=== PATIENT | female | born 1995 | race American Indian/Alaskan Native ===

== ENCOUNTER 2018-02-28 15:56 | Inpatient (IN) | payer MEDICAID ==
[2018-02-28] MEDS ORDERED: Albuterol-Ipratrop 3 mg / 0.5 (3 ml) UD INH STA ×2 (16:56)
[2018-02-28] MEDS ORDERED: MethylPREDNISolone 40 mg Vial IVP STA (16:57)
--- NOTE | 2018-02-28 17:09 | C.PDOC ---
History Of Present Illness 23 year old female with a history of hypertension and obesity presents to the emergency department with complaints of shortness of breath for the last 3 days. Patient also reports a cough which has persisted for the last two weeks. Patient denies fever or other complaints at this time. Time Seen by Provider: 02/28/18 16:12 Chief Complaint (Nursing): Shortness Of Breath History Per: Patient History/Exam Limitations: no limitations Onset/Duration Of Symptoms: Days (3) Current Symptoms Are (Timing): Still Present Associated Symptoms: Other (cough, shortness of breath). denies: Fever Past Medical History Reviewed: Historical Data, Nursing Documentation, Vital Signs Vital Signs: Last Vital Signs Temp 98.2 F 03/01/18 04:00 Pulse 92 H 03/01/18 11:40 Resp 29 H 03/01/18 07:07 BP 124/73 03/01/18 09:58 Pulse Ox 100 03/01/18 07:07 - Medical History PMH: HTN Surgical History: No Surg Hx Family History: States: No Known Family Hx - Social History Hx Alcohol Use: No Hx Substance Use: No - Immunization History Hx Tetanus Toxoid Vaccination: No Hx Influenza Vaccination: No Hx Pneumococcal Vaccination: No Review Of Systems Except As Marked, All Systems Reviewed And Found Negative. Constitutional: Negative for: Fever Respiratory: Positive for: Cough, Shortness of Breath Physical Exam - Physical Exam Appears: Non-toxic, No Acute Distress, Other (morbidly obese) Skin: Warm, Dry Head: Atraumatic, Normacephalic Eye(s): bilateral: Normal Inspection Nose: Normal Oral Mucosa: Moist Throat: Normal, No Erythema, No Exudate Neck: Normal Chest: Symmetrical Cardiovascular: Rhythm Regular, No Murmur Respiratory: Decreased Breath Sounds (symmetrically), Wheezing (scattered) Gastrointestinal/Abdominal: Normal Exam, Soft, No Tenderness, No Guarding, No Rebound Extremity: Normal ROM Neurological/Psych: Oriented x3, Normal Speech, Normal Cognition ED Course And Treatment - Laboratory Results Result Diagrams: 03/01/18 06:15 03/01/18 06:12 ECG: Interpreted By Me, Viewed By Me ECG Rhythm: Sinus Tachycardia (101bpm) ECG Interpretation: Abnormal O2 Sat by Pulse Oximetry: 100 (RA) Pulse Ox Interpretation: Normal Medical Decision Making Medical Decision Making: ro pna, pe Plan: VBG Shock Panel EKG BNP CMP Troponin CBC D-Dimer PTT Prothrombin Time CXR One View Duoneb 3ml INH Solu-Medrol 125mg IVP Urinalysis HCG Qualitative Urine noted dimer. pt cannot be sent to ct or vq due to size limitations. case discussed with dr grey about transfer vs empiric tx. agrees to empiric tx heparin. pt repeat abg co2 44. Disposition - Disposition Disposition: HOSPITALIZED Disposition Time: 10:15 Condition: FAIR - Clinical Impression Clinical Impression: Respiratory distress, Pneumonia, Elevated d-dimer - Scribe Statement The provider has reviewed the documentation as recorded by the Scribe (Jamin Cathy) Provider Attestation: All medical record entries made by the Scribe were at my direction and personally dictated by me. I have reviewed the chart and agree that the record accurately reflects my personal performance of the history, physical exam, medical decision making, and the department course for this patient. I have also personally directed, reviewed, and agree with the discharge instructions and disposition. Decision To Admit - Pt Status Changed To: Hospital Disposition Of: Inpatient - Admit Certification Admit to Inpatient:: After my assessment, the patient will require hospitalization for at least two midnights. This is because of the severity of symptoms shown, intensity of services needed, and/or the medical risk in this patient being treated as an outpatient. - InPatient: Physician Admission Certification: I certify that this patient requires 2 or more midnights of care for the following reason:: needs heparin - . Bed Request Type: Telemetry Admitting Physician: Mei Grey Patient Diagnosis: Respiratory distress, Pneumonia, Elevated d-dimer
[2018-02-28 17:26] LABS: BASO % 0.2 % (0.0-2.0); EOS # 0.1 K/uL (0.0-0.7); EOS % 1.2 % (0.0-4.0); LYMPH # 3.3 K/uL (1.0-4.3); LYMPH % 28.9 % (20.0-40.0); MEAN CELL VOLUME 64.9 fL (81.0-99.0); MEAN CORPUSCULAR HEMOGLOBIN 19.7 pg (27.0-31.0); MEAN CORPUSCULAR HGB CONC 30.4 g/dL (33.0-37.0); MEAN PLATELET VOLUME 8.2 fL (7.2-11.7); MONO # 0.7 K/uL (0.0-0.8); MONO % 6.2 % (0.0-10.0); NEUT # 7.2 K/uL (1.8-7.0); NEUT % 63.5 % (50.0-75.0); RBC 5.08 Mil/uL (3.80-5.20); RED CELL DISTRIBUTION WIDTH 20.7 % (11.5-14.5); WHITE BLOOD COUNT 11.4 K/uL (4.8-10.8)
[2018-02-28] MEDS ORDERED: Albuterol-Ipratrop 3 mg / 0.5 (3 ml) UD ONE (17:28)
[2018-02-28 17:32] LABS: VENOUS BLOOD GAS BASE EXCESS 3.8 mmol/L (0.0-2.0); VENOUS BLOOD GAS PCO2 84 mmHg (40-60); VENOUS BLOOD GAS PO2 49 mm/Hg (30-55); VENOUS BLOOD PH 7.22 (7.32-7.43)
[2018-02-28 17:45] LABS: INR 1.2; PROTHROMBIN TIME 13.5 SECONDS (9.7-12.2)
[2018-02-28 17:47] LABS: ALB/GLOB RATIO 0.6 (1.0-2.1); ALBUMIN 3.4 g/dL (3.5-5.0); ALT/SGPT 35 U/L (9-52); AST/SGOT 67 U/L (14-36); BLOOD UREA NITROGEN 15 mg/dL (7-17); CALCIUM 8.7 mg/dl (8.6-10.4); GFR AFRICAN-AMERICAN > 60; GFR NON-AFRICAN AMERICAN > 60
[2018-02-28] MEDS ORDERED: Azithromycin 500 MG in Sodium Chloride 0.9% 250 ML IVPB STA (17:49)
[2018-02-28 18:01] LABS: B-TYPE NATRIURETIC PEPTIDE 574 pg/mL (0-450)
[2018-02-28] MEDS ORDERED: cefTRIAXone IV 1 gm in Dextros 50 ML IVPB ONE (18:01)
--- NOTE | 2018-02-28 18:02 | RAD ---
PROCEDURE: CHEST RADIOGRAPH, 1 VIEW HISTORY: chest pain COMPARISON: None available. FINDINGS: LUNGS: Poor inspiration with low lung volumes, crowded bronchovascular markings and suspected bibasilar atelectasis. Note that possibility of bilateral lower lobe infiltrates and effusions cannot be excluded in this patient with large body habitus. . PLEURA: As above. No evidence of pneumothorax. CARDIOVASCULAR: Cardiomegaly. OSSEOUS STRUCTURES: No significant abnormalities. VISUALIZED UPPER ABDOMEN: Normal. OTHER FINDINGS: None. IMPRESSION: Poor inspiration with low lung volumes, crowded bronchovascular markings and suspected bibasilar atelectasis. Note that possibility of bilateral lower lobe infiltrates and effusions cannot be excluded in this patient with large body habitus. . Cardiomegaly.
[2018-02-28] MEDS ORDERED: Heparin25000 units/250ml 1/2NS 25,000 UNITS/250 ML BAG IV ONE ×2 (19:16→19:45)
--- NOTE | 2018-02-28 20:11 | CP.PCM.HP ---
History of Present Illness - History of Present Illness History of Present Illness: Chief complaint: sob HPI: 22-year-old female extremity obese, and hypertension was being seen by PMD Dr. Jaz Concepcion. Seen in my office recently for routine visit came to ed with progressively increasing sob Past medical history: Hypertension She denies any diabetes, bronchial asthma. Surgical history: None Family history: Father is healthy. Mother had a history of neck cancer, disease 2. Patient has 4 sisters and one brother. Social history: Drinks socially alcohol. She denies any smoking. Occasional drinks coffee. Currently trying to do some exercise. Current medications: Metformin 500 mg daily Bisoprolol hydrochlorothiazide 5/6.25 daily Gabapentin 300 mg daily Vitamin D Naprosyn 375 mg twice a day as needed. Review of system: Patient is currently on and off having occasional headache, morning headache noted. She has no sinus symptoms. Patient has a history of on and off chest discomfort, and shortness of breath. Currently do not have any pain. She has no GI symptoms. Regular bowel movements noted. No urinary symptoms. Bilateral knee pain, back pain, and hip pain noted. No skin changes. Patient have a difficult time in sleeping, multiple awakening noted, and she is also feeling dozing off at times. But she was not evaluated for sleep apnea in the past On examination: Vital signs noted. Blood pressure is 140/84. Saturations 97% in room air. Chest good air entry bilaterally. Regular heart sound noted. Abdominal tenderness negative. But the patient is obese and extremities edema noted Labs ordered. high d dimer Assessment and recommendation: 22-year-old female with a history of morbidly obesity, hypertension. Currently blood pressure is controlled. Patient is also having shortness of breath, and associated with the possible obstructive sleep apnea cannot be ruled out. possible FANY with hypoventilation PE/DVT cannt be ruled out unable to CT chest and VQ scan because of the size limitation will treat empirically will get echo and doppler spoke pt mother bipap duoneb antibiotic heparin protonix respiratory watch no SCD until doppler Present on Admission - Present on Admission Any Indicators Present on Admission: No History of DVT/PE: No History of Uncontrolled Diabetes: No Urinary Catheter: No Decubitus Ulcer Present: No Past Patient History - Infectious Disease Hx of Infectious Diseases: None - Past Social History Smoking Status: Never Smoked - CARDIAC Hx Hypertension: Yes - PULMONARY Hx Respiratory Disorders: No - NEUROLOGICAL Hx Neurological Disorder: No - ENDOCRINE/METABOLIC Hx Endocrine Disorders: Yes Other/Comment: pre diabetic - HEMATOLOGICAL/ONCOLOGICAL Hx Blood Disorders: No - INTEGUMENTARY Hx Dermatological Problems: No - MUSCULOSKELETAL/RHEUMATOLOGICAL Hx Musculoskeletal Disorders: Yes Other/Comment: knee pain - GASTROINTESTINAL Hx Gastrointestinal Disorders: No - GENITOURINARY/GYNECOLOGICAL Hx Genitourinary Disorders: No - PSYCHIATRIC Hx Substance Use: No - SURGICAL HISTORY Hx Surgeries: No - ANESTHESIA Hx Anesthesia: No Hx Anesthesia Reactions: No Meds Allergies/Adverse Reactions: Allergies Allergy/AdvReac Type Severity Reaction Status Date / Time No Known Allergies Allergy Verified 02/28/18 16:49 Results - Vital Signs Recent Vital Signs: Last Vital Signs Temp 98 F 02/28/18 20:11 Pulse 93 H 02/28/18 20:11 Resp 18 02/28/18 20:11 BP 142/74 02/28/18 20:11 Pulse Ox 98 02/28/18 20:11 - Labs Result Diagrams: 03/07/18 06:06 03/07/18 06:07 Labs: Laboratory Results - last 24 hr 02/28/18 02/28/18 02/28/18 17:23 17:23 17:23 WBC 11.4 H RBC 5.08 Hgb 10.0 L Hct 33.0 L MCV 64.9 L MCH 19.7 L MCHC 30.4 L RDW 20.7 H Plt Count 332 MPV 8.2 Neut % (Auto) 63.5 Lymph % (Auto) 28.9 [place] % (Auto) 6.2 Eos % (Auto) 1.2 Baso % (Auto) 0.2 Neut # (Auto) 7.2 H Lymph # (Auto) 3.3 [place] # (Auto) 0.7 Eos # (Auto) 0.1 Baso # (Auto) 0.0 Differential Comment PT 13.5 H INR 1.2 APTT 23 D-Dimer, Quantitative 1884 H pO2 VBG pH VBG pCO2 VBG HCO3 VBG Total CO2 VBG O2 Sat (Calc) VBG Base Excess VBG Potassium Glucose Lactate FiO2 Crit Value Called To Crit Value Called By Crit Value Read Back Blood Gas Notified Time Sodium 137 Potassium 4.3 Chloride 98 Carbon Dioxide 36 H Anion Gap 8 L BUN 15 Creatinine 0.7 Est GFR ( Amer) > 60 Est GFR (Non-Af Amer) > 60 Random Glucose 104 Calcium 8.7 Total Bilirubin 0.5 AST 67 H ALT 35 Alkaline Phosphatase 79 Troponin I 0.0150 NT-Pro-B Natriuret Pep 574 H Total Protein 8.9 H Albumin 3.4 L Globulin 5.4 H Albumin/Globulin Ratio 0.6 L Beta HCG, Quant Venous Blood Potassium 02/28/18 02/28/18 17:25 18:36 WBC RBC Hgb Hct MCV MCH MCHC RDW Plt Count MPV Neut % (Auto) Lymph % (Auto) [place] % (Auto) Eos % (Auto) Baso % (Auto) Neut # (Auto) Lymph # (Auto) [place] # (Auto) Eos # (Auto) Baso # (Auto) Differential Comment PT INR APTT D-Dimer, Quantitative pO2 49 VBG pH 7.22 L VBG pCO2 84 H* VBG HCO3 27.3 VBG Total CO2 37.0 H VBG O2 Sat (Calc) 81.7 H VBG Base Excess 3.8 H VBG Potassium 3.9 Glucose 92 Lactate 0.7 FiO2 21.0 Crit Value Called To Dr fields Crit Value Called By [facility] Crit Value Read Back Y Blood Gas Notified Time 1732 Sodium 137.0 Potassium Chloride 102.0 Carbon Dioxide Anion Gap BUN Creatinine Est GFR ( Amer) Est GFR (Non-Af Amer) Random Glucose Calcium Total Bilirubin AST ALT Alkaline Phosphatase Troponin I NT-Pro-B Natriuret Pep Total Protein Albumin Globulin Albumin/Globulin Ratio Beta HCG, Quant < 2.39 Venous Blood Potassium 3.9
--- NOTE | 2018-02-28 22:49 | CP.PCM.CON ---
History of Present Illness - History of Present Illness History of Present Illness: 23 F with hx of Obesity admitted for dyspnea Elevated D dimer Started on anticoagulation for possible PE Check ECHO Past Patient History - Infectious Disease Hx of Infectious Diseases: None - Past Social History Smoking Status: Never Smoked - CARDIAC Hx Hypertension: Yes - PULMONARY Hx Respiratory Disorders: No - NEUROLOGICAL Hx Neurological Disorder: No - ENDOCRINE/METABOLIC Hx Endocrine Disorders: Yes Other/Comment: pre diabetic - HEMATOLOGICAL/ONCOLOGICAL Hx Blood Disorders: No - INTEGUMENTARY Hx Dermatological Problems: No - MUSCULOSKELETAL/RHEUMATOLOGICAL Hx Musculoskeletal Disorders: Yes Other/Comment: knee pain - GASTROINTESTINAL Hx Gastrointestinal Disorders: No - GENITOURINARY/GYNECOLOGICAL Hx Genitourinary Disorders: No - PSYCHIATRIC Hx Substance Use: No - SURGICAL HISTORY Hx Surgeries: No - ANESTHESIA Hx Anesthesia: No Hx Anesthesia Reactions: No Meds Allergies/Adverse Reactions: Allergies Allergy/AdvReac Type Severity Reaction Status Date / Time No Known Allergies Allergy Verified 02/28/18 16:49 - Medications Medications: Current Medications Albuterol/Ipratropium (Duoneb 3 Mg/0.5 Mg (3 Ml) Ud) 3 ml INH RQ6 ZURDO Budesonide (Pulmicort Respules) 0.5 mg INH RQ12 ZURDO Furosemide (Lasix) 20 mg IVP DAILY ZURDO Heparin Sodium/Sodium Chloride (Heparin 65236 Units/250ml 1/2 Normal Saline) 25 ,000 units in 250 mls @ 38.782 mls/hr IV .Q6H27M ONE; 18 UNITS/KG/HR PRN Reason: Protocol Stop: 03/01/18 02:11 Last Admin: 02/28/18 20:07 Dose: 18 units/kg/hr, 38.782 mls/hr Azithromycin 500 mg/ Sodium (Chloride) 250 mls @ 250 mls/hr IVPB 1800 ZURDO PRN Reason: Protocol Ceftriaxone Sodium 1 gm/ (Sodium Chloride) 100 mls @ 100 mls/hr IVPB 1700 ZURDO PRN Reason: Protocol Pantoprazole Sodium (Protonix Inj) 40 mg IVP DAILY ZURDO Tiotropium [place] (Spiriva) 18 mcg INH RQ24 ZURDO Results - Vital Signs Recent Vital Signs: Last Vital Signs Temp 98 F 02/28/18 21:12 Pulse 86 02/28/18 22:05 Resp 18 02/28/18 21:12 BP 140/70 07/07/18 21:34 Pulse Ox 100 02/28/18 22:15 - Labs Result Diagrams: 02/28/18 17:23 02/28/18 17:23 Labs: Laboratory Results - last 24 hr 02/28/18 02/28/18 02/28/18 17:23 17:23 17:23 WBC 11.4 H RBC 5.08 Hgb 10.0 L Hct 33.0 L MCV 64.9 L MCH 19.7 L MCHC 30.4 L RDW 20.7 H Plt Count 332 MPV 8.2 Neut % (Auto) 63.5 Lymph % (Auto) 28.9 [place] % (Auto) 6.2 Eos % (Auto) 1.2 Baso % (Auto) 0.2 Neut # (Auto) 7.2 H Lymph # (Auto) 3.3 [place] # (Auto) 0.7 Eos # (Auto) 0.1 Baso # (Auto) 0.0 Differential Comment PT 13.5 H INR 1.2 APTT 23 D-Dimer, Quantitative 1884 H pO2 VBG pH VBG pCO2 VBG HCO3 VBG Total CO2 VBG O2 Sat (Calc) VBG Base Excess VBG Potassium Glucose Lactate FiO2 Crit Value Called To Crit Value Called By Crit Value Read Back Blood Gas Notified Time Sodium 137 Potassium 4.3 Chloride 98 Carbon Dioxide 36 H Anion Gap 8 L BUN 15 Creatinine 0.7 Est GFR ( Amer) > 60 Est GFR (Non-Af Amer) > 60 Random Glucose 104 Calcium 8.7 Total Bilirubin 0.5 AST 67 H ALT 35 Alkaline Phosphatase 79 Troponin I 0.0150 NT-Pro-B Natriuret Pep 574 H Total Protein 8.9 H Albumin 3.4 L Globulin 5.4 H Albumin/Globulin Ratio 0.6 L Beta HCG, Quant Venous Blood Potassium 02/28/18 02/28/18 17:25 18:36 WBC RBC Hgb Hct MCV MCH MCHC RDW Plt Count MPV Neut % (Auto) Lymph % (Auto) [place] % (Auto) Eos % (Auto) Baso % (Auto) Neut # (Auto) Lymph # (Auto) [place] # (Auto) Eos # (Auto) Baso # (Auto) Differential Comment PT INR APTT D-Dimer, Quantitative pO2 49 VBG pH 7.22 L VBG pCO2 84 H* VBG HCO3 27.3 VBG Total CO2 37.0 H VBG O2 Sat (Calc) 81.7 H VBG Base Excess 3.8 H VBG Potassium 3.9 Glucose 92 Lactate 0.7 FiO2 21.0 Crit Value Called To Dr fields Crit Value Called By [facility] Crit Value Read Back Y Blood Gas Notified Time 1732 Sodium 137.0 Potassium Chloride 102.0 Carbon Dioxide Anion Gap BUN Creatinine Est GFR ( Amer) Est GFR (Non-Af Amer) Random Glucose Calcium Total Bilirubin AST ALT Alkaline Phosphatase Troponin I NT-Pro-B Natriuret Pep Total Protein Albumin Globulin Albumin/Globulin Ratio Beta HCG, Quant < 2.39 Venous Blood Potassium 3.9
[2018-03-01 00:01] LABS: HCG,QUALITATIVE URINE NEGATIVE (NEGATIVE)
[2018-03-01 00:05] LABS: SQUAMOUS EPITHIAL < 1 /hpf (0-5); URINE BACTERIA FEW (<OCC); URINE BILIRUBIN NEGATIVE (NEGATIVE); URINE BLOOD 2+ (NEGATIVE); URINE CLARITY Hazy (Clear); URINE COLOR Yellow (YELLOW); URINE GLUCOSE (UA) NORMAL (Normal); URINE HYALINE CAST 0-2 /lpf (0-2); URINE LEUKOCYTE ESTERASE NEG Leu/uL (Negative); URINE PROTEIN 2+ mg/dL (NEGATIVE); URINE UROBILINOGEN NORMAL mg/dL (0.2-1.0)
[2018-03-01] MEDS: Albuterol-Ipratrop 3 mg / 0.5 (3 ml) UD INH SCH ×4 (02:15→19:06)
[2018-03-01] MEDS: Heparin25000 units/250ml 1/2NS 25,000 UNITS/250 ML BAG IV PRN ×4 (03:04→22:30)
[2018-03-01 05:56] LABS: ABG ALLEN TEST POS; ARTERIAL BLOOD GAS HCO3 29.2 mmol/L (21-28); ARTERIAL BLOOD GAS HEMOGLOBIN 10.4 g/dL (11.7-17.4); ARTERIAL BLOOD GAS O2 SAT 96.6 % (95-98); ARTERIAL BLOOD GAS PCO2 64 mm/Hg (35-45); ARTERIAL BLOOD GAS PH 7.32 (7.35-7.45); ARTERIAL BLOOD GAS PO2 74 mm/Hg (80-100)
[2018-03-01 06:24] LABS: BASO % 0.4 % (0.0-2.0); HEMOGLOBIN 9.8 g/dL (11.0-16.0); LYMPH # 2.1 K/uL (1.0-4.3); LYMPH % 20.7 % (20.0-40.0); MEAN CELL VOLUME 65.2 fL (81.0-99.0); MEAN CORPUSCULAR HEMOGLOBIN 20.4 pg (27.0-31.0); MEAN CORPUSCULAR HGB CONC 31.3 g/dL (33.0-37.0); MEAN PLATELET VOLUME 8.4 fL (7.2-11.7); MONO # 0.5 K/uL (0.0-0.8); MONO % 4.6 % (0.0-10.0); NEUT # 7.5 K/uL (1.8-7.0); NEUT % 74.3 % (50.0-75.0); NRBC % 0.1 % (0.0-2.0); RBC 4.79 Mil/uL (3.80-5.20); RED CELL DISTRIBUTION WIDTH 20.7 % (11.5-14.5); WHITE BLOOD COUNT 10.1 K/uL (4.8-10.8)
[2018-03-01 06:39] LABS: ALB/GLOB RATIO 0.7 (1.0-2.1); ALBUMIN 3.6 g/dL (3.5-5.0); ALT/SGPT 29 U/L (9-52); AST/SGOT 62 U/L (14-36); BLOOD UREA NITROGEN 16 mg/dL (7-17); CALCIUM 8.9 mg/dl (8.6-10.4); GFR AFRICAN-AMERICAN > 60; GFR NON-AFRICAN AMERICAN > 60
[2018-03-01] MEDS: Budesonide 0.5 mg/2 ml Inhal Susp UD INH SCH ×2 (07:57→19:06)
[2018-03-01] MEDS: Tiotropium 18 mcg Cap For Inhalation INH SCH (07:57)
[2018-03-01] MEDS: Azithromycin 500 MG in Sodium Chloride 0.9% 250 ML IVPB SCH ×2 (18:00→18:01)
[2018-03-01] MEDS ORDERED: Amoxicillin-Clav 875-125 mg Tab PO STA (18:32)
--- NOTE | 2018-03-01 19:42 | CP.PCM.PN ---
Subjective - Date & Time of Evaluation Date of Evaluation: 03/01/18 Time of Evaluation: 19:41 - Subjective Subjective: Patient is currently off BiPAP. Still having some exertional dyspnea. Minimal movement causes increasing as will be. Saturation is good. Receiving heparin, but having difficult time in getting the intravenous access. Awaiting for PICC line tomorrow. Leg swelling is less. Patient is having negative balance now. On examination: Vital signs stable. Blood pressure is good at this time. Saturation 97%. Chest bilateral minimal expiratory wheezing noted. Regular heart sound. Abdomen obese extremities edema Labs reviewed Nonspecific. Elevated phosphorus level noted. CBC normal blood gas analysis reveals pH of 7.32, PCO2 64, PO2 74 Assessment and recommendation: 23-year-old female with a history of morbid obesity. Hypertension. Pedal edema Possible pickwickian syndrome, obesity hypoventilation. CO2 retention noted. We will get echocardiogram. Continue the heparin. PICC line tomorrow. Out of bed to chair in the morning. Awaiting for Doppler study results. We will follow the patient. Spoke to the patient's family in details. Objective - Vital Signs/Intake and Output Vital Signs (last 24 hours): Temp Pulse Resp BP Pulse Ox 99.7 F H 103 H 21 116/56 L 100 03/01/18 16:00 03/01/18 18:18 03/01/18 18:18 03/01/18 18:18 03/01/18 18:18 Intake and Output: 03/01/18 03/02/18 18:59 06:59 Intake Total 1614.0 Output Total 150 1380 Balance 1464.0 -1380 - Medications Medications: Current Medications Albuterol/Ipratropium (Duoneb 3 Mg/0.5 Mg (3 Ml) Ud) 3 ml INH RQ6 ZURDO Last Admin: 03/01/18 19:06 Dose: 3 ml Budesonide (Pulmicort Respules) 0.5 mg INH RQ12 ZURDO Last Admin: 03/01/18 19:06 Dose: 0.5 mg Furosemide (Lasix) 20 mg IVP DAILY ZURDO Last Admin: 03/01/18 09:58 Dose: 20 mg Azithromycin 500 mg/ Sodium (Chloride) 250 mls @ 250 mls/hr IVPB 1800 ZURDO PRN Reason: Protocol Last Admin: 03/01/18 18:01 Dose: 250 mls/hr Ceftriaxone Sodium 1 gm/ (Sodium Chloride) 100 mls @ 100 mls/hr IVPB 1700 ZURDO PRN Reason: Protocol Last Admin: 03/01/18 17:00 Dose: 100 mls/hr Heparin Sodium/Sodium Chloride (Heparin 02205 Units/250ml 1/2 Normal Saline) 25 ,000 units in 250 mls @ 47.4 mls/hr IV .Q5H17M PRN; Protocol; 22 UNITS/KG/HR PRN Reason: PROTOCOL Last Admin: 03/01/18 14:30 Dose: 22 units/kg/hr, 47.4 mls/hr Pantoprazole Sodium (Protonix Inj) 40 mg IVP DAILY ZURDO Last Admin: 03/01/18 09:57 Dose: 40 mg Tiotropium [place] (Spiriva) 18 mcg INH RQ24 ZURDO Last Admin: 03/01/18 07:57 Dose: 18 mcg - Labs Labs: 03/01/18 06:15 03/01/18 06:12 PT 13.5 SECONDS (9.7-12.2) H 02/28/18 17:23 INR 1.2 02/28/18 17:23 APTT 33 SECONDS (21-34) 03/01/18 15:52
--- NOTE | 2018-03-01 21:25 | CP.PCM.PN ---
Subjective - Date & Time of Evaluation Date of Evaluation: 03/01/18 Time of Evaluation: 15:15 - Subjective Subjective: Patient seen and evaluated Dyspnea Obesity FANY HTN PE on Heparin Awaiting ECHO Objective - Vital Signs/Intake and Output Vital Signs (last 24 hours): Temp Pulse Resp BP Pulse Ox 99.7 F H 104 H 22 101/39 L 100 03/01/18 16:00 03/01/18 20:00 03/01/18 20:00 03/01/18 18:59 03/01/18 20:00 Intake and Output: 03/01/18 03/02/18 18:59 06:59 Intake Total 1614.0 Output Total 150 1380 Balance 1464.0 -1380 - Medications Medications: Current Medications Albuterol/Ipratropium (Duoneb 3 Mg/0.5 Mg (3 Ml) Ud) 3 ml INH RQ6 ZURDO Last Admin: 03/01/18 19:06 Dose: 3 ml Budesonide (Pulmicort Respules) 0.5 mg INH RQ12 ZURDO Last Admin: 03/01/18 19:06 Dose: 0.5 mg Furosemide (Lasix) 20 mg IVP DAILY ZURDO Last Admin: 03/01/18 09:58 Dose: 20 mg Azithromycin 500 mg/ Sodium (Chloride) 250 mls @ 250 mls/hr IVPB 1800 ZURDO PRN Reason: Protocol Last Admin: 03/01/18 18:00 Dose: Not Given Ceftriaxone Sodium 1 gm/ (Sodium Chloride) 100 mls @ 100 mls/hr IVPB 1700 ZURDO PRN Reason: Protocol Last Admin: 03/01/18 17:00 Dose: 100 mls/hr Heparin Sodium/Sodium Chloride (Heparin 05917 Units/250ml 1/2 Normal Saline) 25 ,000 units in 250 mls @ 47.4 mls/hr IV .Q5H17M PRN; Protocol; 22 UNITS/KG/HR PRN Reason: PROTOCOL Last Admin: 03/01/18 14:30 Dose: 22 units/kg/hr, 47.4 mls/hr Pantoprazole Sodium (Protonix Inj) 40 mg IVP DAILY [facility] Last Admin: 03/01/18 09:57 Dose: 40 mg Tiotropium [place] (Spiriva) 18 mcg INH RQ24 ZURDO Last Admin: 03/01/18 07:57 Dose: 18 mcg - Labs Labs: 03/01/18 06:15 03/01/18 06:12 PT 13.5 SECONDS (9.7-12.2) H 02/28/18 17:23 INR 1.2 02/28/18 17:23 APTT 33 SECONDS (21-34) 03/01/18 15:52
[2018-03-02] MEDS: Albuterol-Ipratrop 3 mg / 0.5 (3 ml) UD INH SCH ×4 (02:03→19:20)
[2018-03-02 03:06] LABS: BASO # 0.1 K/uL (0.0-0.2); BASO % 0.9 % (0.0-2.0); EOS # 0.2 K/uL (0.0-0.7); EOS % 1.4 % (0.0-4.0); HEMOGLOBIN 8.9 g/dL (11.0-16.0); LYMPH # 4.3 K/uL (1.0-4.3); LYMPH % 36.8 % (20.0-40.0); MEAN CORPUSCULAR HEMOGLOBIN 19.8 pg (27.0-31.0); MEAN CORPUSCULAR HGB CONC 30.5 g/dL (33.0-37.0); MEAN PLATELET VOLUME 8.4 fL (7.2-11.7); MONO # 0.9 K/uL (0.0-0.8); NEUT # 6.3 K/uL (1.8-7.0); NEUT % 52.9 % (50.0-75.0); NRBC % 0.1 % (0.0-2.0); RBC 4.5 Mil/uL (3.80-5.20); RED CELL DISTRIBUTION WIDTH 20.8 % (11.5-14.5); WHITE BLOOD COUNT 11.8 K/uL (4.8-10.8)
[2018-03-02 03:27] LABS: ALB/GLOB RATIO 0.6 (1.0-2.1); ALBUMIN 2.9 g/dL (3.5-5.0); ALT/SGPT 32 U/L (9-52); AST/SGOT 41 U/L (14-36); BLOOD UREA NITROGEN 22 mg/dL (7-17); CALCIUM 8.5 mg/dl (8.6-10.4); GFR AFRICAN-AMERICAN > 60; GFR NON-AFRICAN AMERICAN > 60
[2018-03-02] MEDS: Tiotropium 18 mcg Cap For Inhalation INH SCH (07:51)
[2018-03-02] MEDS: Budesonide 0.5 mg/2 ml Inhal Susp UD INH SCH ×2 (07:51→19:20)
--- NOTE | 2018-03-02 09:13 | CP.CCUPN ---
CCU Subjective - Physician Review Subjective (Free Text): 03/02/18 09:09 23 year old AA female with PMHx of HTN and obesity presenting with dyspnea, admitted for suspected PE w/ elevated D-dimer 1884. No acute events overnight. Patient complains of right eye irritation and discharge, and improving back pain with deep inspiration. Patient denies dyspnea, chest pain, abdominal pain, nausea. Patient reports no BM x3 days. 03/02/18 12:00 CCU Objective - Vital Signs / Intake & Output Vital Signs (Last 4 hours): Vital Signs Temp Pulse Resp BP Pulse Ox 03/02/18 08:00 98.2 F 97 H 26 H 117/65 100 03/02/18 07:00 96 H 18 129/70 99 03/02/18 06:00 103 H 38 H 97 Intake and Output (Last 8hrs): Intake & Output 03/01/18 03/02/18 03/02/18 22:59 06:59 14:59 Intake Total 734.4 237.0 266 Output Total 1520 205 25 Balance -785.6 32.0 241 Weight 475 lb 475 lb Intake: IV 250 225 Intake, IV Amount 384.4 237.0 41 Left Wrist 189.6 237.0 41 Right Antecubital 194.8 Oral 100 Output: Urine 1520 205 25 Urethral ([place]) 1520 205 25 Stool 0 0 0 - Physical Exam Head: Positive for: Atraumatic, Normocephalic Extroacular Muscles: Positive for: EOMI Conjunctiva: Positive for: Normal, Injected (right eye injected, upper lid swollen) Mouth: Positive for: Moist Mucous Membranes Cardiovascular: Positive for: Regular Rate and Rhythm. Negative for: Murmurs Abdomen: Positive for: Normal Bowel Sounds. Negative for: Tenderness, Distention Back: Positive for: Normal Inspection Upper Extremity: Positive for: Edema (right distal forearm edematous from infiltrated line), NORMAL PULSES Lower Extremity: Positive for: Edema (b/l edema) Neurological: Positive for: GCS=15 Skin: Positive for: Warm, Normal Color Psychiatric: Positive for: Alert, Oriented x 3 - Medications Active Medications: Active Medications Generic Name Dose Route Start Last Admin Trade Name Freq PRN Reason Stop Dose Admin Albuterol/Ipratropium 3 ml 03/01/18 02:00 03/02/18 07:51 Duoneb 3 Mg/0.5 Mg (3 Ml) Ud INH 3 ml RQ6 ZURDO Administration Budesonide 0.5 mg 02/28/18 21:45 03/02/18 07:51 Pulmicort Respules INH 0.5 mg RQ12 ZURDO Administration Furosemide 20 mg 03/01/18 10:00 03/01/18 09:58 Lasix IVP 20 mg DAILY ZURDO Administration Azithromycin 500 mg/ Sodium 250 mls @ 250 mls/hr 03/01/18 18:00 03/01/18 18: 00 Chloride IVPB Not Given 1800 ZURDO Protocol Ceftriaxone Sodium 1 gm/ 100 mls @ 100 mls/hr 03/01/18 17:00 03/01/18 17:00 Sodium Chloride IVPB 100 mls/hr 1700 ZURDO Administration Protocol Heparin Sodium/Sodium Chloride 25,000 units in 250 mls @ 47.4 mls/hr 03/01/18 02:38 03/02/18 07:28 Heparin 47592 Units/250ml 1/2 Normal Saline IV 19 units/kg/hr .Q5H17M PRN 40.937 mls/hr PROTOCOL Titration Protocol 22 UNITS/KG/HR Pantoprazole Sodium 40 mg 03/01/18 10:00 03/01/18 09:57 Protonix Inj IVP 40 mg DAILY ZURDO Administration Tiotropium [place] 18 mcg 03/01/18 08:00 03/02/18 07:51 Spiriva INH 18 mcg RQ24 ZURDO Administration Tobramycin/Dexamethasone 0 ml 03/02/18 10:00 Tobradex Opht Susp OD QID ZURDO - Patient Studies Lab Studies: Microbiology Studies 02/28/18 06:00 Urine Culture - Final Urine,Catheterized No Growth (<1,000 CFU/ML) Lab Studies 03/02/18 03/02/18 03/02/18 Range/Units 07:16 05:33 03:01 WBC (4.8-10.8) K/uL RBC (3.80-5.20) Mil/uL Hgb (11.0-16.0) g/dL Hct (34.0-47.0) % MCV (81.0-99.0) fL MCH (27.0-31.0) pg MCHC (33.0-37.0) g/dL RDW (11.5-14.5) % Plt Count (130-400) K/uL MPV (7.2-11.7) fL Neut % (Auto) (50.0-75.0) % Lymph % (Auto) (20.0-40.0) % [place] % (Auto) (0.0-10.0) % Eos % (Auto) (0.0-4.0) % Baso % (Auto) (0.0-2.0) % Neut # (Auto) (1.8-7.0) K/uL Lymph # (Auto) (1.0-4.3) K/uL [place] # (Auto) (0.0-0.8) K/uL Eos # (Auto) (0.0-0.7) K/uL Baso # (Auto) (0.0-0.2) K/uL APTT 156 H* D (21-34) SECONDS Sodium 140 (132-148) mmol/L Potassium 4.3 (3.6-5.2) mmol/L Chloride 104 (98-107) mmol/L Carbon Dioxide 33 H (22-30) mmol/L Anion Gap 8 L (10-20) BUN 22 H (7-17) mg/dL Creatinine 0.7 (0.7-1.2) mg/dL Est GFR ( Amer) > 60 Est GFR (Non-Af Amer) > 60 POC Glucose (mg/dL) 81 (65-110) mg/dL Random Glucose 103 (65-105) mg/dL Calcium 8.5 L (8.6-10.4) mg/dl Phosphorus 4.4 (2.5-4.5) mg/dL Magnesium 1.8 (1.6-2.3) mg/dL Total Bilirubin 0.3 (0.2-1.3) mg/dL AST 41 H D (14-36) U/L ALT 32 (9-52) U/L Alkaline Phosphatase 57 (38-126) U/L Troponin I (0.00-0.120) ng/mL Total Protein 7.7 (6.3-8.3) g/dL Albumin 2.9 L (3.5-5.0) g/dL Globulin 4.9 H (2.2-3.9) gm/dL Albumin/Globulin Ratio 0.6 L (1.0-2.1) 03/02/18 03/02/18 03/01/18 Range/Units 03:01 00:51 21:42 WBC 11.8 H (4.8-10.8) K/uL RBC 4.50 (3.80-5.20) Mil/uL Hgb 8.9 L (11.0-16.0) g/dL Hct 29.3 L (34.0-47.0) % MCV 65.0 L (81.0-99.0) fL MCH 19.8 L (27.0-31.0) pg MCHC 30.5 L (33.0-37.0) g/dL RDW 20.8 H (11.5-14.5) % Plt Count 328 (130-400) K/uL MPV 8.4 (7.2-11.7) fL Neut % (Auto) 52.9 (50.0-75.0) % Lymph % (Auto) 36.8 (20.0-40.0) % [place] % (Auto) 8.0 (0.0-10.0) % Eos % (Auto) 1.4 (0.0-4.0) % Baso % (Auto) 0.9 (0.0-2.0) % Neut # (Auto) 6.3 (1.8-7.0) K/uL Lymph # (Auto) 4.3 (1.0-4.3) K/uL [place] # (Auto) 0.9 H (0.0-0.8) K/uL Eos # (Auto) 0.2 (0.0-0.7) K/uL Baso # (Auto) 0.1 (0.0-0.2) K/uL APTT (21-34) SECONDS Sodium (132-148) mmol/L Potassium (3.6-5.2) mmol/L Chloride (98-107) mmol/L Carbon Dioxide (22-30) mmol/L Anion Gap (10-20) BUN (7-17) mg/dL Creatinine (0.7-1.2) mg/dL Est GFR ( Amer) Est GFR (Non-Af Amer) POC Glucose (mg/dL) 97 (65-110) mg/dL Random Glucose (65-105) mg/dL Calcium (8.6-10.4) mg/dl Phosphorus (2.5-4.5) mg/dL Magnesium (1.6-2.3) mg/dL Total Bilirubin (0.2-1.3) mg/dL AST (14-36) U/L ALT (9-52) U/L Alkaline Phosphatase (38-126) U/L Troponin I < 0.0120 (0.00-0.120) ng/mL Total Protein (6.3-8.3) g/dL Albumin (3.5-5.0) g/dL Globulin (2.2-3.9) gm/dL Albumin/Globulin Ratio (1.0-2.1) 03/01/18 03/01/18 03/01/18 Range/Units 16:26 15:52 11:40 WBC (4.8-10.8) K/uL RBC (3.80-5.20) Mil/uL Hgb (11.0-16.0) g/dL Hct (34.0-47.0) % MCV (81.0-99.0) fL MCH (27.0-31.0) pg MCHC (33.0-37.0) g/dL RDW (11.5-14.5) % Plt Count (130-400) K/uL MPV (7.2-11.7) fL Neut % (Auto) (50.0-75.0) % Lymph % (Auto) (20.0-40.0) % [place] % (Auto) (0.0-10.0) % Eos % (Auto) (0.0-4.0) % Baso % (Auto) (0.0-2.0) % Neut # (Auto) (1.8-7.0) K/uL Lymph # (Auto) (1.0-4.3) K/uL [place] # (Auto) (0.0-0.8) K/uL Eos # (Auto) (0.0-0.7) K/uL Baso # (Auto) (0.0-0.2) K/uL APTT 33 (21-34) SECONDS Sodium (132-148) mmol/L Potassium (3.6-5.2) mmol/L Chloride (98-107) mmol/L Carbon Dioxide (22-30) mmol/L Anion Gap (10-20) BUN (7-17) mg/dL Creatinine (0.7-1.2) mg/dL Est GFR ( Amer) Est GFR (Non-Af Amer) POC Glucose (mg/dL) 91 117 H (65-110) mg/dL Random Glucose (65-105) mg/dL Calcium (8.6-10.4) mg/dl Phosphorus (2.5-4.5) mg/dL Magnesium (1.6-2.3) mg/dL Total Bilirubin (0.2-1.3) mg/dL AST (14-36) U/L ALT (9-52) U/L Alkaline Phosphatase (38-126) U/L Troponin I (0.00-0.120) ng/mL Total Protein (6.3-8.3) g/dL Albumin (3.5-5.0) g/dL Globulin (2.2-3.9) gm/dL Albumin/Globulin Ratio (1.0-2.1) Laboratory Results - last 24 hr 03/01/18 03/01/18 03/01/18 11:40 15:52 16:26 WBC RBC Hgb Hct MCV MCH MCHC RDW Plt Count MPV Neut % (Auto) Lymph % (Auto) [place] % (Auto) Eos % (Auto) Baso % (Auto) Neut # (Auto) Lymph # (Auto) [place] # (Auto) Eos # (Auto) Baso # (Auto) APTT 33 Sodium Potassium Chloride Carbon Dioxide Anion Gap BUN Creatinine Est GFR ( Amer) Est GFR (Non-Af Amer) POC Glucose (mg/dL) 117 H 91 Random Glucose Calcium Phosphorus Magnesium Total Bilirubin AST ALT Alkaline Phosphatase Troponin I Total Protein Albumin Globulin Albumin/Globulin Ratio 03/01/18 03/02/18 03/02/18 21:42 00:51 03:01 WBC 11.8 H RBC 4.50 Hgb 8.9 L Hct 29.3 L MCV 65.0 L MCH 19.8 L MCHC 30.5 L RDW 20.8 H Plt Count 328 MPV 8.4 Neut % (Auto) 52.9 Lymph % (Auto) 36.8 [place] % (Auto) 8.0 Eos % (Auto) 1.4 Baso % (Auto) 0.9 Neut # (Auto) 6.3 Lymph # (Auto) 4.3 [place] # (Auto) 0.9 H Eos # (Auto) 0.2 Baso # (Auto) 0.1 APTT Sodium Potassium Chloride Carbon Dioxide Anion Gap BUN Creatinine Est GFR ( Amer) Est GFR (Non-Af Amer) POC Glucose (mg/dL) 97 Random Glucose Calcium Phosphorus Magnesium Total Bilirubin AST ALT Alkaline Phosphatase Troponin I < 0.0120 Total Protein Albumin Globulin Albumin/Globulin Ratio 03/02/18 03/02/18 03/02/18 03:01 05:33 07:16 WBC RBC Hgb Hct MCV MCH MCHC RDW Plt Count MPV Neut % (Auto) Lymph % (Auto) [place] % (Auto) Eos % (Auto) Baso % (Auto) Neut # (Auto) Lymph # (Auto) [place] # (Auto) Eos # (Auto) Baso # (Auto) APTT 156 H* D Sodium 140 Potassium 4.3 Chloride 104 Carbon Dioxide 33 H Anion Gap 8 L BUN 22 H Creatinine 0.7 Est GFR ( Amer) > 60 Est GFR (Non-Af Amer) > 60 POC Glucose (mg/dL) 81 Random Glucose 103 Calcium 8.5 L Phosphorus 4.4 Magnesium 1.8 Total Bilirubin 0.3 AST 41 H D ALT 32 Alkaline Phosphatase 57 Troponin I Total Protein 7.7 Albumin 2.9 L Globulin 4.9 H Albumin/Globulin Ratio 0.6 L EKG/Cardiology Studies: Cardiology / EKG Studies 03/02/18 00:23 EKG [ELECTROCARDIOGRAM] Stat Comment: Mode Of Transportation: Reason For Exam: left sided pain Fingerstick Blood Sugar Results: 81 Review of Systems - Constitutional Constitutional: absent: Sweats - EENT Eyes: Itchy Eyes (right eye), Pain (right) - Cardiovascular Cardiovascular: absent: Chest Pain, Dyspnea - Respiratory Respiratory: As Per HPI, Pain on Inspiration - Gastrointestinal Gastrointestinal: Other (no stool x3 days). absent: Abdominal Pain - Musculoskeletal Musculoskeletal: Muscle Weakness (right distal forearm) Critical Care Progress Note - Prophylaxis GI Prophylaxis GI: PPI - Nutrition Nutrition: Nutrition Category Date Time Status Heart Healthy Diet [DIET] Diets 02/28/18 Breakfast Active Assessment/Plan - Assessment and Plan (Free Text) Assessment: 23 year old AA female with PMHx of HTN and obesity presenting with dyspnea, admitted for suspected PE w/ elevated D-dimer 1884. 1. Elevated D-dimer -heparin 25,000U -monitor PTT -venous dopper UE and LE -all neg -f/u echo -v/q/ct not possible due to pt size -NC, Bipap at night 2. Effusion/PNA -azithromycin 500mg -rochephin 1g -d/c fluids 3. HTN -lasix 20mg PO 4. Anemia -hgb 8.9 -continue to monitor 5. Conjunctivitis (right) -Tobra-dex, 2 drops QID Ppx -protonix 40mg PO PICC placed 03/02, x-ray confirmed Case discussed with Dr. Grey
--- NOTE | 2018-03-02 09:37 | VASCLAB ---
PROCEDURE: Lower Extremity Venous Duplex Exam HISTORY: Dyspnea PRIORS: None. TECHNIQUE: Bilateral common femoral, femoral, popliteal and posterior tibial, peroneal and great saphenous veins were evaluated. Flow was assessed with color Doppler, compressibility, assessment of phasic flow and augmentation response. Report prepared by CARLOS Taveras FINDINGS: RIGHT: 1. Common Femoral Vein: 1.1. Compressibility - Fully compressible: Thrombus - None : Flow - Phasic: Augmentation -Normal: Reflux - None. 2. Femoral Vein: (proximal view only) 2.1. Compressibility - Fully compressible: Thrombus - None : Flow - Phasic: Augmentation -Normal: Reflux - None. 3. Popliteal Vein: 4. Posterior Tibial Vein: (distal calf view only) 4.1. Compressibility - Fully compressible: Thrombus - None: Flow - Phasic: Augmentation -Normal: Reflux - None. 5. Peroneal Vein: 6. Great Saphenous Vein: LEFT: 1. Common Femoral Vein: 1.1. Compressibility - Fully compressible: Thrombus - None: Flow - Phasic: Augmentation -Normal: Reflux - None. 2. Femoral Vein: (proximal view only) 2.1. Compressibility - Fully compressible: Thrombus - None: Flow - Phasic: Augmentation -Normal: Reflux - None. 3. Popliteal Vein: 4. Posterior Tibial Vein: 5. Peroneal Vein: 6. Great Saphenous Vein: OTHER FINDINGS: Right: None significant. Left: None significant. IMPRESSION: Right: No evidence of venous thrombosis in the right common femoral, proximal femoral and distal posterior tibial veins. Left: No evidence of venous thrombosis in the left common femoral and proximal femoral veins. Limited evaluation of the lower extremities due to patient large body habitus.
[2018-03-02] MEDS ORDERED: Pantoprazole 40 mg EC Tab PO SCH (10:00)
[2018-03-02] MEDS: Tobramycin/Dexamethasone (Tobradex) Opth Sol (2.5 ml) OD SCH ×4 (10:06→21:46)
--- NOTE | 2018-03-02 11:07 | RAD ---
HISTORY: effusion COMPARISON: Chest radiograph dated 02/28/2018. FINDINGS: LUNGS: Prominence of pulmonary vasculature may be secondary to low lung volumes, AP technique and/or pulmonary vascular congestion. PLEURA: Bilateral costophrenic angles poorly evaluated due to patient body habitus and suboptimal technique. No pneumothorax apparent. CARDIOVASCULAR: Cardiomediastinal silhouette appears prominent; however this cannot be accurately assessed on an AP projection. OSSEOUS STRUCTURES: Unchanged. VISUALIZED UPPER ABDOMEN: Normal. OTHER FINDINGS: None. IMPRESSION: Prominence of pulmonary vasculature may be secondary to low lung volumes, AP technique and/or pulmonary vascular congestion.
[2018-03-02 11:23] LABS: INR 1.3; PROTHROMBIN TIME 13.9 SECONDS (9.7-12.2)
--- NOTE | 2018-03-02 15:36 | RAD ---
HISTORY: PICC Insertion COMPARISON: Chest radiograph performed approximately 7.5 hours prior. FINDINGS: LUNGS: Prominence of the pulmonary vasculature may be secondary to low lung volumes, AP technique and/or pulmonary vascular congestion. PLEURA: Bilateral costophrenic angles poorly evaluated due to patient body habitus and suboptimal technique. No pneumothorax apparent. CARDIOVASCULAR: Cardiomediastinal silhouette appears prominent; however, this cannot be accurately assessed on an AP projection. OSSEOUS STRUCTURES: No significant abnormalities. VISUALIZED UPPER ABDOMEN: Normal. OTHER FINDINGS: New left upper extremity PICC with catheter tip in the SVC. IMPRESSION: Limited evaluation. New left upper extremity PICC in satisfactory position. No significant interval change.
--- NOTE | 2018-03-02 16:04 | VASCLAB ---
PROCEDURE: Upper Extremity Venous Duplex Exam HISTORY: Dyspnea PRIORS: None. TECHNIQUE: Bilateral upper extremity, internal jugular, subclavian, axillary, brachial, ulnar, radial, basilic and upper cephalic veins were evaluated. Flow was assessed with color Doppler, compressibility, assessment of phasic flow and augmentation response. Report prepared by CARLOS Taveras FINDINGS: RIGHT: 1. Internal Jugular: 1.1. Compressibility - Fully compressible: Thrombus - None : Flow - Phasic: Augmentation -Normal: Reflux - None. 2. Subclavian: 2.1. Compressibility - Fully compressible: Thrombus - None : Flow - Phasic: Augmentation -Normal: Reflux - None. 3. Axillary: 3.1. Unable to identify 4. Brachial: 4.1. Compressibility - Fully compressible: Thrombus - None: Flow - Phasic: Augmentation -Normal: Reflux - None. 5. Ulnar: 5.1. Compressibility - Fully compressible: Thrombus - None: Flow - Phasic: Augmentation -Normal: Reflux - None. 6. Radial: 6.1. Compressibility - Fully compressible: Thrombus - None: Flow - Phasic: Augmentation - Normal: Reflux - None. 7. Cephalic: 7.1. Compressibility - Fully compressible: Thrombus - None: Flow - Phasic: Augmentation -Normal: Reflux - None. 8. Basilic: 8.1. Compressibility - Fully compressible: Thrombus - None: Flow - Phasic: Augmentation -Normal: Reflux - None. LEFT: 1. Internal Jugular: 1.1. Compressibility - Fully compressible: Thrombus - None : Flow - Phasic: Augmentation -Normal: Reflux - None. 2. Subclavian: 2.1. Compressibility - Fully compressible: Thrombus - None : Flow - Phasic: Augmentation -Normal: Reflux - None. 3. Axillary: 3.1. Compressibility - Fully compressible: Thrombus - None : Flow - Phasic: Augmentation -Normal: Reflux - None. 4. Brachial: 4.1. Compressibility - Fully compressible: Thrombus - None: Flow - Phasic: Augmentation -Normal: Reflux - None. 5. Ulnar: 5.1. Compressibility - Fully compressible: Thrombus - None: Flow - Phasic: Augmentation -Normal: Reflux - None. 6. Radial: 6.1. Compressibility - Fully compressible: Thrombus - None: Flow - Phasic: Augmentation - Normal: Reflux - None. 7. Cephalic: 7.1. Compressibility - Fully compressible: Thrombus - None: Flow - Phasic: Augmentation -Normal: Reflux - None. 8. Basilic: 8.1. Not visualized. OTHER FINDINGS: Right: None. Left: None. IMPRESSION: Right: No evidence of vein thrombosis of the right upper extremity with excellent venous flow. Normal valve function noted of the right side. Left: No evidence of vein thrombosis of the left upper extremity with excellent venous flow. Normal valve function noted of the left side.
[2018-03-02] MEDS: Azithromycin 500 MG in Sodium Chloride 0.9% 250 ML IVPB SCH (17:12)
--- NOTE | 2018-03-02 19:44 | CARD ---
APPROVED REPORT EKG Measurement Heart [id number] <Conclusion> Sinus tachycardia Low voltage QRS Borderline ECG
--- NOTE | 2018-03-02 20:51 | CARD ---
APPROVED REPORT EXAM: Two-dimensional and M-mode echocardiogram with Doppler and color Doppler. Other Information Quality : GoodRhythm : INDICATION Dyspnea Pulmonary Hypertention RISK FACTORS Obesity 2D DIMENSIONS IVSd1.0 (0.7-1.1cm)LVDd4.4 (3.9-5.9cm) PWd1.0 (0.7-1.1cm)LVDs2.7 (2.5-4.0cm) FS (%) 38.5 %LVEF (%)69.0 (>50%) M-Mode DIMENSIONS Left Atrium (MM)4.50 (2.5-4.0cm)IVSd1.54 (0.7-1.1cm) Aortic Root3.16 (2.2-3.7cm)LVDd5.38 (4.0-5.6cm) Aortic Cusp Exc.2.59 (1.5-2.0cm)PWd0.91 (0.7-1.1cm) FS (%) 38 %LVDs3.33 (2.0-3.8cm) LVEF (%)68 (>50%) Mitral Valve MV E Cwttesge317.9cm/sMV A Lhbukppx784.8cm/sE/A ratio0.8 TDI E/Lateral E'0.0E/Medial E'0.0 Tricuspid Valve TR Peak [id number]/sTR Peak Gr.[id number] LEFT VENTRICLE The left ventricle is normal size. There is normal left ventricular wall thickness. The left ventricular function is normal. About 65% The left ventricular ejection fraction is within the normal range. No regional wall motion abnormalities noted. The left ventricular diastolic function is indeterminate., No left ventricle thrombus noted on this study. There is no ventricular septal defect visualized. There is no left ventricular aneurysm. There is no mass noted in the left ventricle. RIGHT VENTRICLE The right ventricle is normal size. There is normal right ventricular wall thickness. The right ventricular systolic function is normal. ATRIA The left atrium size is normal. The right atrium size is normal. The interatrial septum is intact with no evidence for an atrial septal defect. AORTIC VALVE The aortic valve is normal in structure and function. No aortic regurgitation is present. There is no aortic valvular stenosis. There is no aortic valvular vegetation. MITRAL VALVE The mitral valve is normal in structure and function. There is no evidence of mitral valve prolapse. There is no mitral valve stenosis. There is no mitral valve regurgitation noted. TRICUSPID VALVE The tricuspid valve is normal in structure and function. There is mild tricuspid valve regurgitation noted. Estimated PA systolic pressure is 40 mm Hg. There is no tricuspid valve prolapse or vegetation. There is no tricuspid valve stenosis. PULMONIC VALVE The pulmonary valve is normal in structure and function. There is no pulmonic valvular regurgitation. There is no pulmonic valvular stenosis. GREAT VESSELS The aortic root is normal in size. The ascending aorta is normal in size. The pulmonary artery is normal. The IVC is normal in size and collapses >50% with inspiration. PERICARDIAL EFFUSION A very small inferolateral pericarial effusion is noted. There is no pleural effusion. <Conclusion> Normal LV systolic function. A very small inferolateral pericarial effusion is noted. Mild pulmonary HTn.
[2018-03-02] MEDS: Heparin25000 units/250ml 1/2NS 25,000 UNITS/250 ML BAG IV PRN (21:45)
--- NOTE | 2018-03-02 23:00 | CP.PCM.PN ---
Subjective - Date & Time of Evaluation Date of Evaluation: 03/02/18 Time of Evaluation: 19:30 - Subjective Subjective: Patient seen and evaluated Denies chest pain and dyspnea ECHO: Normal EF Dilated RV/RA and moderate pulmonary HTN Objective - Vital Signs/Intake and Output Vital Signs (last 24 hours): Temp Pulse Resp BP Pulse Ox 98.9 F 110 H 21 99/46 L 98 03/02/18 16:00 03/02/18 19:00 03/02/18 19:00 03/02/18 19:00 03/02/18 19:00 Intake and Output: 03/02/18 03/03/18 18:59 06:59 Intake Total 1697 41 Output Total 1325 Balance 372 41 - Medications Medications: Current Medications Albuterol/Ipratropium (Duoneb 3 Mg/0.5 Mg (3 Ml) Ud) 3 ml INH RQ6 [facility] Last Admin: 03/02/18 19:20 Dose: 3 ml Budesonide (Pulmicort Respules) 0.5 mg INH RQ12 [facility] Last Admin: 03/02/18 19:20 Dose: 0.5 mg Furosemide (Lasix) 20 mg PO DAILY [facility] Azithromycin 500 mg/ Sodium (Chloride) 250 mls @ 250 mls/hr IVPB 1800 [facility]URDO PRN Reason: Protocol Last Admin: 03/02/18 17:12 Dose: 250 mls/hr Ceftriaxone Sodium 1 gm/ (Sodium Chloride) 100 mls @ 100 mls/hr IVPB 1700 ZURDO PRN Reason: Protocol Last Admin: 03/02/18 17:12 Dose: 100 mls/hr Heparin Sodium/Sodium Chloride (Heparin 52293 Units/250ml 1/2 Normal Saline) 25 ,000 units in 250 mls @ 47.4 mls/hr IV .Q5H17M PRN; Protocol; 22 UNITS/KG/HR PRN Reason: PROTOCOL Last Titration: 03/02/18 22:00 Dose: 0 units/kg/hr, 0 mls/hr Pantoprazole Sodium (Protonix Ec Tab) 40 mg PO DAILY [facility] Tiotropium [place] (Spiriva) 18 mcg INH RQ24 [facility] Last Admin: 03/02/18 07:51 Dose: 18 mcg Tobramycin/Dexamethasone (Tobradex Opht Susp) 0 ml OD QID [facility] Last Admin: 03/02/18 21:46 Dose: 2 drop - Labs Labs: 03/02/18 03:01 03/02/18 03:01 PT 13.9 SECONDS (9.7-12.2) H 03/02/18 10:48 INR 1.3 03/02/18 10:48 APTT 157 SECONDS (21-34) H* D 03/02/18 21:26
[2018-03-03] MEDS: Albuterol-Ipratrop 3 mg / 0.5 (3 ml) UD INH SCH ×4 (01:33→19:40)
[2018-03-03 05:33] LABS: BASO # 0.1 K/uL (0.0-0.2); BASO % 0.5 % (0.0-2.0); EOS # 0.2 K/uL (0.0-0.7); EOS % 2.1 % (0.0-4.0); HEMOGLOBIN 9.1 g/dL (11.0-16.0); LYMPH # 3.8 K/uL (1.0-4.3); LYMPH % 36.8 % (20.0-40.0); MEAN CELL VOLUME 64.5 fL (81.0-99.0); MEAN CORPUSCULAR HEMOGLOBIN 19.8 pg (27.0-31.0); MEAN CORPUSCULAR HGB CONC 30.7 g/dL (33.0-37.0); MEAN PLATELET VOLUME 8.4 fL (7.2-11.7); MONO # 0.7 K/uL (0.0-0.8); MONO % 6.5 % (0.0-10.0); NEUT # 5.6 K/uL (1.8-7.0); NEUT % 54.1 % (50.0-75.0); NRBC % 0.1 % (0.0-2.0); RBC 4.57 Mil/uL (3.80-5.20); RED CELL DISTRIBUTION WIDTH 19.7 % (11.5-14.5); WHITE BLOOD COUNT 10.3 K/uL (4.8-10.8)
[2018-03-03] MEDS: Heparin25000 units/250ml 1/2NS 25,000 UNITS/250 ML BAG IV PRN ×2 (05:46→21:48)
[2018-03-03 05:56] LABS: ALB/GLOB RATIO 0.7 (1.0-2.1); ALBUMIN 3.1 g/dL (3.5-5.0); ALT/SGPT 42 U/L (9-52); AST/SGOT 44 U/L (14-36); BLOOD UREA NITROGEN 17 mg/dL (7-17); CALCIUM 8.4 mg/dl (8.6-10.4); GFR AFRICAN-AMERICAN > 60; GFR NON-AFRICAN AMERICAN > 60
[2018-03-03] MEDS: Budesonide 0.5 mg/2 ml Inhal Susp UD INH SCH ×2 (08:05→19:40)
[2018-03-03] MEDS: Tiotropium 18 mcg Cap For Inhalation INH SCH (08:05)
[2018-03-03] MEDS: Pantoprazole 40 mg EC Tab PO SCH (09:08)
[2018-03-03] MEDS: Tobramycin/Dexamethasone (Tobradex) Opth Sol (2.5 ml) OD SCH ×4 (09:09→21:50)
[2018-03-03] MEDS: Azithromycin 500 MG in Sodium Chloride 0.9% 250 ML IVPB SCH (17:00)
--- NOTE | 2018-03-03 19:16 | CP.PCM.PN ---
Subjective - Date & Time of Evaluation Date of Evaluation: 03/03/18 Time of Evaluation: 19:13 - Subjective Subjective: Patient is more awake and responding. Comfortable otherwise. Able to stand up, out of bed to chair. Currently off anticoagulation, will monitor the PT and PTT today. Chest bilateral good air entry. Regular heart sound noted. Extremities edema present. [place] catheter noted Patient also has a PICC line Assessment and recommendation: 23-year-old female with a history of obesity hypertension admitted with decompensated respiratory insufficiency. On BiPAP. Obesity hypoventilation. Possible pneumonia. Underlying lung, pulmonary embolism cannot be ruled out. Unable to do the VQ scan, or CT scan. Empirically on anticoagulation. Continue the heparin. Will follow the patient Objective - Vital Signs/Intake and Output Vital Signs (last 24 hours): Temp Pulse Resp BP Pulse Ox 98.4 F 118 H 20 116/71 98 03/03/18 16:00 03/03/18 18:00 03/03/18 16:00 03/03/18 16:00 03/03/18 16:00 Intake and Output: 03/03/18 03/04/18 18:59 06:59 Intake Total 1880 Output Total 950 Balance 930 - Medications Medications: Current Medications Albuterol/Ipratropium (Duoneb 3 Mg/0.5 Mg (3 Ml) Ud) 3 ml INH RQ6 [facility] Last Admin: 03/03/18 13:56 Dose: 3 ml Budesonide (Pulmicort Respules) 0.5 mg INH RQ12 [facility] Last Admin: 03/03/18 08:05 Dose: 0.5 mg Enoxaparin Sodium (Lovenox) 40 mg SC DAILY [facility] Furosemide (Lasix) 20 mg PO DAILY [facility] Last Admin: 03/03/18 09:08 Dose: 20 mg Azithromycin 500 mg/ Sodium (Chloride) 250 mls @ 250 mls/hr IVPB 1800 [facility]URDO PRN Reason: Protocol Last Admin: 03/03/18 17:00 Dose: 250 mls/hr Ceftriaxone Sodium 1 gm/ (Sodium Chloride) 100 mls @ 100 mls/hr IVPB 1700 ZURDO PRN Reason: Protocol Last Admin: 03/03/18 17:00 Dose: 100 mls/hr Pantoprazole Sodium (Protonix Ec Tab) 40 mg PO DAILY [facility] Last Admin: 03/03/18 09:08 Dose: 40 mg Tiotropium [place] (Spiriva) 18 mcg INH RQ24 [facility] Last Admin: 03/03/18 08:05 Dose: 18 mcg Tobramycin/Dexamethasone (Tobradex Opht Susp) 0 ml OD QID [facility] Last Admin: 03/03/18 17:01 Dose: 1 drop - Labs Labs: 03/03/18 05:30 03/03/18 05:30 PT 13.9 SECONDS (9.7-12.2) H 03/02/18 10:48 INR 1.3 03/02/18 10:48 APTT 161 SECONDS (21-34) H* 03/03/18 05:30
[2018-03-03 20:18] LABS: INR 1.2; PROTHROMBIN TIME 12.9 SECONDS (9.7-12.2)
--- NOTE | 2018-03-03 22:54 | CP.PCM.PN ---
Subjective - Date & Time of Evaluation Date of Evaluation: 03/03/18 Time of Evaluation: 12:00 - Subjective Subjective: Patient seen and evaluated Comfortable Objective - Vital Signs/Intake and Output Vital Signs (last 24 hours): Temp Pulse Resp BP Pulse Ox 98.2 F 125 H 26 H 123/63 100 03/03/18 20:00 03/03/18 20:00 03/03/18 20:00 03/03/18 20:00 03/03/18 20:00 Intake and Output: 03/03/18 03/04/18 18:59 06:59 Intake Total 1880 240 Output Total 950 450 Balance 930 -210 - Medications Medications: Current Medications Albuterol/Ipratropium (Duoneb 3 Mg/0.5 Mg (3 Ml) Ud) 3 ml INH RQ6 [facility] Last Admin: 03/03/18 19:40 Dose: 3 ml Budesonide (Pulmicort Respules) 0.5 mg INH RQ12 [facility] Last Admin: 03/03/18 19:40 Dose: 0.5 mg Enoxaparin Sodium (Lovenox) 40 mg SC DAILY [facility] Furosemide (Lasix) 20 mg PO DAILY [facility] Last Admin: 03/03/18 09:08 Dose: 20 mg Azithromycin 500 mg/ Sodium (Chloride) 250 mls @ 250 mls/hr IVPB 1800 [facility] PRN Reason: Protocol Last Admin: 03/03/18 17:00 Dose: 250 mls/hr Ceftriaxone Sodium 1 gm/ (Sodium Chloride) 100 mls @ 100 mls/hr IVPB 1700 [facility] PRN Reason: Protocol Last Admin: 03/03/18 17:00 Dose: 100 mls/hr Heparin Sodium/Sodium Chloride (Heparin 77705 Units/250ml 1/2 Normal Saline) 25 ,000 units in 250 mls @ 17.236 mls/hr IV .[id number] PRN; Protocol; 8 UNITS/KG/HR PRN Reason: ADJUST RATE PER PROTOCOL Last Admin: 03/03/18 21:48 Dose: 8 units/kg/hr, 17.236 mls/hr Pantoprazole Sodium (Protonix Ec Tab) 40 mg PO DAILY [facility] Last Admin: 03/03/18 09:08 Dose: 40 mg Tiotropium [place] (Spiriva) 18 mcg INH RQ24 [facility] Last Admin: 03/03/18 08:05 Dose: 18 mcg Tobramycin/Dexamethasone (Tobradex Opht Susp) 0 ml OD QID [facility] Last Admin: 03/03/18 21:50 Dose: 2 drop - Labs Labs: 03/03/18 05:30 03/03/18 05:30 PT 12.9 SECONDS (9.7-12.2) H 03/03/18 20:05 INR 1.2 03/03/18 20:05 APTT 29 SECONDS (21-34) D 03/03/18 20:05
[2018-03-04] MEDS: Albuterol-Ipratrop 3 mg / 0.5 (3 ml) UD INH SCH ×4 (01:19→20:30)
[2018-03-04] MEDS: Budesonide 0.5 mg/2 ml Inhal Susp UD INH SCH ×2 (07:57→20:30)
[2018-03-04] MEDS: Tiotropium 18 mcg Cap For Inhalation INH SCH (07:57)
[2018-03-04] MEDS ORDERED: Enoxaparin 40 mg Syringe SC SCH ×2 (10:00)
[2018-03-04] MEDS: Pantoprazole 40 mg EC Tab PO SCH (10:12)
[2018-03-04] MEDS: Tobramycin/Dexamethasone (Tobradex) Opth Sol (2.5 ml) OD SCH ×4 (10:13→22:10)
--- NOTE | 2018-03-04 10:24 | CP.PCM.PN ---
<Laney Barnhart - Last Filed: 03/04/18 13:55> Subjective - Date & Time of Evaluation Date of Evaluation: 03/04/18 Time of Evaluation: 12:30 - Subjective Subjective: PGY2- Progress Note for Dr. Chan Patient seen and examined at bedside and in no acute distress. Patient says she had an episode of chest pressure yesterday which lasted 15min and rated 5/10. Patient has not had any pain since then. Patient has had multiple episodes like this in the past. Patient also admits that she has not been taking her metformin or blood pressure medication at home. Patient explained importance of compliance with her medications. Patient is on nasal cannula and does not feel short of breath. Patient says earlier this morning she had to be on BiPAP because of her shortness of breath. Currently patient denies any shortness of breath, chest pain, abdominal pain, nausea, vomiting, constipation, or diarrhea. Objective - Vital Signs/Intake and Output Vital Signs (last 24 hours): Temp Pulse Resp BP Pulse Ox 98.9 F 113 H 26 H 103/77 100 03/04/18 04:00 03/04/18 07:58 03/04/18 04:00 03/04/18 10:12 03/04/18 04:00 Intake and Output: 03/04/18 03/04/18 06:59 18:59 Intake Total 651.2 Output Total 450 Balance 201.2 - Medications Medications: Current Medications Albuterol/Ipratropium (Duoneb 3 Mg/0.5 Mg (3 Ml) Ud) 3 ml INH RQ6 [facility] Last Admin: 03/04/18 07:57 Dose: 3 ml Budesonide (Pulmicort Respules) 0.5 mg INH RQ12 [facility] Last Admin: 03/04/18 07:57 Dose: 0.5 mg Furosemide (Lasix) 20 mg PO DAILY [facility] Last Admin: 03/04/18 10:12 Dose: 20 mg Azithromycin 500 mg/ Sodium (Chloride) 250 mls @ 250 mls/hr IVPB 1800 [facility] PRN Reason: Protocol Last Admin: 03/03/18 17:00 Dose: 250 mls/hr Ceftriaxone Sodium 1 gm/ (Sodium Chloride) 100 mls @ 100 mls/hr IVPB 1700 [facility] PRN Reason: Protocol Last Admin: 03/03/18 17:00 Dose: 100 mls/hr Heparin Sodium/Sodium Chloride (Heparin 34902 Units/250ml 1/2 Normal Saline) 25 ,000 units in 250 mls @ 17.236 mls/hr IV .[id number] PRN; Protocol; 8 UNITS/KG/HR PRN Reason: ADJUST RATE PER PROTOCOL Last Titration: 03/04/18 06:49 Dose: 10 units/kg/hr, 21.546 mls/hr Pantoprazole Sodium (Protonix Ec Tab) 40 mg PO DAILY [facility] Last Admin: 03/04/18 10:12 Dose: 40 mg Tiotropium [place] (Spiriva) 18 mcg INH RQ24 [facility] Last Admin: 03/04/18 07:57 Dose: 18 mcg Tobramycin/Dexamethasone (Tobradex Opht Susp) 0 ml OD QID [facility] Last Admin: 03/04/18 10:13 Dose: 2 drop - Labs Labs: 03/03/18 05:30 03/03/18 05:30 PT 12.9 SECONDS (9.7-12.2) H 03/03/18 20:05 INR 1.2 03/03/18 20:05 APTT 36 SECONDS (21-34) H D 03/04/18 05:40 - Constitutional Appears: Non-toxic, No Acute Distress, Other (morbidly obese) - Head Exam Head Exam: ATRAUMATIC, NORMAL INSPECTION, NORMOCEPHALIC - Eye Exam Eye Exam: EOMI, Normal appearance - Respiratory Exam Respiratory Exam: Clear to Ausculation Bilateral, NORMAL BREATHING PATTERN - Cardiovascular Exam Cardiovascular Exam: Tachycardia, RRR, +S1, +S2 - GI/Abdominal Exam GI & Abdominal Exam: Soft, Normal Bowel Sounds. absent: Tenderness - Extremities Exam Extremities Exam: Normal Inspection. absent: Tenderness - Neurological Exam Neurological Exam: Alert, Awake, Oriented x3 - Psychiatric Exam Psychiatric exam: Normal Affect, Normal Mood - Skin Skin Exam: Intact, Normal Color, Warm Assessment and Plan - Assessment and Plan (Free Text) Assessment: Elevated D-dimer -v/q scan and cta not possible due to pt size -being treated with heparin 25,000U -monitor PTT -venous dopper UE and LE-all neg -echo (02/28): LVEF 69, small inferolateral pericardial effusion, mild pulmonary hypertension -NC, Bipap at night Effusion/PNA -azithromycin 500mg -rochephin 1g -lasix 20mg PO daily Discussed with Dr. Chan <Deangelo Chan - Last Filed: 03/05/18 00:14> Objective - Vital Signs/Intake and Output Vital Signs (last 24 hours): Temp Pulse Resp BP Pulse Ox 98.2 F 109 H 22 116/56 L 100 03/04/18 20:00 03/04/18 22:02 03/04/18 20:00 03/04/18 20:00 03/04/18 20:00 Intake and Output: 03/04/18 03/05/18 18:59 06:59 Intake Total 1309.9 250 Output Total 1800 Balance -490.1 250 - Medications Medications: Current Medications Albuterol/Ipratropium (Duoneb 3 Mg/0.5 Mg (3 Ml) Ud) 3 ml INH RQ6 [facility] Last Admin: 03/04/18 20:30 Dose: 3 ml Budesonide (Pulmicort Respules) 0.5 mg INH RQ12 [facility] Last Admin: 03/04/18 20:30 Dose: 0.5 mg Furosemide (Lasix) 20 mg PO DAILY [facility] Last Admin: 03/04/18 10:12 Dose: 20 mg Azithromycin 500 mg/ Sodium (Chloride) 250 mls @ 250 mls/hr IVPB 1800 [facility] PRN Reason: Protocol Last Admin: 03/04/18 17:41 Dose: 250 mls/hr Ceftriaxone Sodium 1 gm/ (Sodium Chloride) 100 mls @ 100 mls/hr IVPB 1700 [facility] PRN Reason: Protocol Last Admin: 03/04/18 17:40 Dose: 100 mls/hr Heparin Sodium/Sodium Chloride (Heparin 55433 Units/250ml 1/2 Normal Saline) 25 ,000 units in 250 mls @ 17.236 mls/hr IV .[id number] PRN; Protocol; 8 UNITS/KG/HR PRN Reason: ADJUST RATE PER PROTOCOL Last Admin: 03/04/18 23:32 Dose: 10 units/kg/hr, 21.546 mls/hr Pantoprazole Sodium (Protonix Ec Tab) 40 mg PO DAILY [facility] Last Admin: 03/04/18 10:12 Dose: 40 mg Tiotropium [place] (Spiriva) 18 mcg INH RQ24 [facility] Last Admin: 03/04/18 07:57 Dose: 18 mcg Tobramycin/Dexamethasone (Tobradex Opht Susp) 0 ml OD QID [facility] Last Admin: 03/04/18 22:10 Dose: 2 drop - Labs Labs: 03/03/18 05:30 03/03/18 05:30 PT 12.9 SECONDS (9.7-12.2) H 03/03/18 20:05 INR 1.2 03/03/18 20:05 APTT 91 SECONDS (21-34) H D 03/04/18 20:13 Assessment and Plan - Assessment and Plan (Free Text) Assessment: Patient seen and evaluated personally by me Plan of care d/w the resident and as documented
[2018-03-04] MEDS: Heparin25000 units/250ml 1/2NS 25,000 UNITS/250 ML BAG IV PRN ×2 (12:10→23:32)
[2018-03-04] MEDS: Azithromycin 500 MG in Sodium Chloride 0.9% 250 ML IVPB SCH (17:41)
--- NOTE | 2018-03-04 21:59 | CP.PCM.PN ---
Subjective - Date & Time of Evaluation Date of Evaluation: 03/04/18 Time of Evaluation: 21:57 - Subjective Subjective: Patient is currently still on heparin drip. PICC line in the left arm noted. Patient is needs assistance for getting up from the bed, using commode. Today she participated physical therapy, able to take a few steps. Left knee pain noted. She denies any nausea, eating well otherwise. Diarrhea negative, did not have any BM today On examination: Vital signs stable. Mildly tachycardia noted. Chest bilateral good air entry Regular heart sound Abdomen obese. Edema bilaterally noted Labs reviewed Mild elevation of the temperature noted Assessment and recommendation: 23-year-old female with to severe morbidly obese. Admitted with acute respiratory failure. Underlying pneumonia likely. Also given the high risk underlying PE cannot be ruled out. Unable to do the CT scan and VQ scan. Echo cardigan showing pulmonary hypertension moderate. With these likely patient has high probability PE, on antegrade regulation. If the patient is stable, tomorrow with a hemoglobin we will possibly start oral anticoagulant. Physical therapy. Diuretics to be continued. Diet exercise. Possible rehabilitation. I also spoke to the patient's family in detail Objective - Vital Signs/Intake and Output Vital Signs (last 24 hours): Temp Pulse Resp BP Pulse Ox 98.2 F 114 H 22 116/56 L 100 03/04/18 20:00 03/04/18 20:00 03/04/18 20:00 03/04/18 20:00 03/04/18 20:00 Intake and Output: 03/04/18 03/05/18 18:59 06:59 Intake Total 1309.9 Output Total 1800 Balance -490.1 - Medications Medications: Current Medications Albuterol/Ipratropium (Duoneb 3 Mg/0.5 Mg (3 Ml) Ud) 3 ml INH RQ6 [facility] Last Admin: 03/04/18 20:30 Dose: 3 ml Budesonide (Pulmicort Respules) 0.5 mg INH RQ12 [facility] Last Admin: 03/04/18 20:30 Dose: 0.5 mg Furosemide (Lasix) 20 mg PO DAILY [facility] Last Admin: 03/04/18 10:12 Dose: 20 mg Azithromycin 500 mg/ Sodium (Chloride) 250 mls @ 250 mls/hr IVPB 1800 [facility] PRN Reason: Protocol Last Admin: 07/11/18 17:41 Dose: 250 mls/hr Ceftriaxone Sodium 1 gm/ (Sodium Chloride) 100 mls @ 100 mls/hr IVPB 1700 [facility] PRN Reason: Protocol Last Admin: 03/04/18 17:40 Dose: 100 mls/hr Heparin Sodium/Sodium Chloride (Heparin 90166 Units/250ml 1/2 Normal Saline) 25 ,000 units in 250 mls @ 17.236 mls/hr IV .[id number] PRN; Protocol; 8 UNITS/KG/HR PRN Reason: ADJUST RATE PER PROTOCOL Last Admin: 03/04/18 12:10 Dose: 10 units/kg/hr, 21.546 mls/hr Pantoprazole Sodium (Protonix Ec Tab) 40 mg PO DAILY [facility] Last Admin: 03/04/18 10:12 Dose: 40 mg Tiotropium [place] (Spiriva) 18 mcg INH RQ24 [facility] Last Admin: 03/04/18 07:57 Dose: 18 mcg Tobramycin/Dexamethasone (Tobradex Opht Susp) 0 ml OD QID [facility] Last Admin: 03/04/18 17:41 Dose: 2 drop - Labs Labs: 03/03/18 05:30 03/03/18 05:30 PT 12.9 SECONDS (9.7-12.2) H 03/03/18 20:05 INR 1.2 03/03/18 20:05 APTT 91 SECONDS (21-34) H D 03/04/18 20:13
[2018-03-05] MEDS: Albuterol-Ipratrop 3 mg / 0.5 (3 ml) UD INH SCH ×4 (01:11→20:05)
[2018-03-05 06:22] LABS: BASO % 0.2 % (0.0-2.0); EOS # 0.3 K/uL (0.0-0.7); EOS % 2.8 % (0.0-4.0); HEMOGLOBIN 8.5 g/dL (11.0-16.0); LYMPH # 3.1 K/uL (1.0-4.3); LYMPH % 31.8 % (20.0-40.0); MEAN CELL VOLUME 65.2 fL (81.0-99.0); MEAN CORPUSCULAR HEMOGLOBIN 20.6 pg (27.0-31.0); MEAN CORPUSCULAR HGB CONC 31.6 g/dL (33.0-37.0); MEAN PLATELET VOLUME 8.4 fL (7.2-11.7); MONO # 0.7 K/uL (0.0-0.8); MONO % 7.3 % (0.0-10.0); NEUT # 5.6 K/uL (1.8-7.0); NEUT % 57.9 % (50.0-75.0); RBC 4.15 Mil/uL (3.80-5.20); RED CELL DISTRIBUTION WIDTH 20.2 % (11.5-14.5); WHITE BLOOD COUNT 9.7 K/uL (4.8-10.8)
[2018-03-05 06:24] LABS: ABG ALLEN TEST POS; ARTERIAL BLOOD GAS HCO3 32.1 mmol/L (21-28); ARTERIAL BLOOD GAS HEMOGLOBIN 8.6 g/dL (11.7-17.4); ARTERIAL BLOOD GAS PCO2 66 mm/Hg (35-45); ARTERIAL BLOOD GAS PH 7.35 (7.35-7.45); ARTERIAL BLOOD GAS PO2 66 mm/Hg (80-100); ARTERIAL BLOOD GAS TCO2 38.4 mmol/L (22-28)
[2018-03-05 06:43] LABS: B-TYPE NATRIURETIC PEPTIDE 168 pg/mL (0-450)
[2018-03-05 06:48] LABS: ALB/GLOB RATIO 0.6 (1.0-2.1); ALBUMIN 3.1 g/dL (3.5-5.0); ALT/SGPT 38 U/L (9-52); AST/SGOT 49 U/L (14-36); BLOOD UREA NITROGEN 9 mg/dL (7-17); CALCIUM 8.6 mg/dl (8.6-10.4); GFR AFRICAN-AMERICAN > 60; GFR NON-AFRICAN AMERICAN > 60
[2018-03-05] MEDS: Budesonide 0.5 mg/2 ml Inhal Susp UD INH SCH ×2 (07:33→20:05)
[2018-03-05] MEDS: Tiotropium 18 mcg Cap For Inhalation INH SCH (07:33)
[2018-03-05] MEDS: Pantoprazole 40 mg EC Tab PO SCH (10:24)
[2018-03-05] MEDS: Tobramycin/Dexamethasone (Tobradex) Opth Sol (2.5 ml) OD SCH ×4 (10:24→22:02)
--- NOTE | 2018-03-05 12:33 | RAD ---
Date of service: 03/05/2018 HISTORY: chf COMPARISON: 03/02/2018 FINDINGS: LUNGS: The exam is severely limited due to very large body habitus portable technique. Bilateral pleural effusions, with bibasilar compressive atelectasis (and/or infiltrates are suspect. PLEURA: Bilateral pleural effusions. Gross pneumothorax appreciated CARDIOVASCULAR: Cardiomegaly and pulmonary venous congestion suggested. OSSEOUS STRUCTURES: Not adequately visualized to assess VISUALIZED UPPER ABDOMEN: Normal. OTHER FINDINGS: None. IMPRESSION: Limited exam for reasons stated above. The less cardiomegaly and central pulmonary venous congestion with bilateral pleural effusions the latter increasing since prior exam are interpreted. Concomitant bibasilar compressive atelectasis and/or concomitant bibasilar coalescent infiltrates are possible/ cannot be excluded. Correlation and follow-up recommended
--- NOTE | 2018-03-05 13:25 | CP.PCM.PN ---
<Laney Barnhart - Last Filed: 03/05/18 13:25> Subjective - Date & Time of Evaluation Date of Evaluation: 03/05/18 Time of Evaluation: 12:00 - Subjective Subjective: PGY2- Progress Note for Dr. Chan Patient seen and examined at bedside and in no acute distress. Patient is very tired because she did not sleep well last night. Patient laying in bed on BiPAP. Patient says her knees are causing her pain. Patient denies any chest pain, abdominal pain, nausea, vomiting, constipation, or diarrhea. Objective - Vital Signs/Intake and Output Vital Signs (last 24 hours): Temp Pulse Resp BP Pulse Ox 98.8 F 104 H 23 106/67 98 03/05/18 04:00 03/05/18 07:34 03/05/18 04:00 03/05/18 10:27 03/05/18 04:00 Intake and Output: 03/05/18 03/05/18 06:59 18:59 Intake Total 1248 Output Total 500 Balance 748 - Medications Medications: Current Medications Albuterol/Ipratropium (Duoneb 3 Mg/0.5 Mg (3 Ml) Ud) 3 ml INH RQ6 [facility] Last Admin: 03/05/18 07:33 Dose: 3 ml Budesonide (Pulmicort Respules) 0.5 mg INH RQ12 [facility] Last Admin: 03/05/18 07:33 Dose: 0.5 mg Furosemide (Lasix) 20 mg PO DAILY [facility] Last Admin: 03/05/18 10:27 Dose: 20 mg Azithromycin 500 mg/ Sodium (Chloride) 250 mls @ 250 mls/hr IVPB 1800 [facility] PRN Reason: Protocol Last Admin: 03/04/18 17:41 Dose: 250 mls/hr Ceftriaxone Sodium 1 gm/ (Sodium Chloride) 100 mls @ 100 mls/hr IVPB 1700 [facility] PRN Reason: Protocol Last Admin: 03/04/18 17:40 Dose: 100 mls/hr Heparin Sodium/Sodium Chloride (Heparin 68006 Units/250ml 1/2 Normal Saline) 25 ,000 units in 250 mls @ 17.236 mls/hr IV .[id number] PRN; Protocol; 8 UNITS/KG/HR PRN Reason: ADJUST RATE PER PROTOCOL Last Admin: 03/04/18 23:32 Dose: 10 units/kg/hr, 21.546 mls/hr Pantoprazole Sodium (Protonix Ec Tab) 40 mg PO DAILY [facility] Last Admin: 03/05/18 10:24 Dose: 40 mg Tiotropium [place] (Spiriva) 18 mcg INH RQ24 [facility] Last Admin: 03/05/18 07:33 Dose: 18 mcg Tobramycin/Dexamethasone (Tobradex Opht Susp) 0 ml OD QID [facility] Last Admin: 03/05/18 10:24 Dose: 1 drop - Labs Labs: 03/05/18 06:11 03/05/18 06:11 PT 12.9 SECONDS (9.7-12.2) H 03/03/18 20:05 INR 1.2 03/03/18 20:05 APTT 76 SECONDS (21-34) H D 03/05/18 06:11 - Additional Findings Additional findings: - Constitutional Appears: Non-toxic, No Acute Distress, Other (morbidly obese) - Head Exam Head Exam: ATRAUMATIC, NORMAL INSPECTION, NORMOCEPHALIC - Eye Exam Eye Exam: EOMI, Normal appearance - Respiratory Exam Respiratory Exam: Clear to Ausculation Bilateral, NORMAL BREATHING PATTERN - Cardiovascular Exam Cardiovascular Exam: Tachycardia, RRR, +S1, +S2 - GI/Abdominal Exam GI & Abdominal Exam: Soft, Normal Bowel Sounds. absent: Tenderness - Extremities Exam Extremities Exam: Normal Inspection. absent: Tenderness - Neurological Exam Neurological Exam: Alert, Awake, Oriented x3 - Psychiatric Exam Psychiatric exam: Normal Affect, Normal Mood - Skin Skin Exam: Intact, Normal Color, Warm Assessment and Plan - Assessment and Plan (Free Text) Assessment: Elevated D-dimer -v/q scan and cta not possible due to pt size -being treated with heparin 25,000U, when stable will be switched to oral anticoagulation -monitor PTT -venous dopper UE and LE-all neg -echo (02/28): LVEF 69, small inferolateral pericardial effusion, mild pulmonary hypertension -NC, Bipap as needed Effusion/PNA -azithromycin 500mg -rochephin 1g -lasix 20mg PO daily -Spiriva -Duonebs -Pulmicort Discussed with Dr. Chan <Deangelo Chan - Last Filed: 03/05/18 23:47> Objective - Vital Signs/Intake and Output Vital Signs (last 24 hours): Temp Pulse Resp BP Pulse Ox 98.5 F 110 H 14 122/42 L 95 03/05/18 16:00 03/05/18 20:09 03/05/18 19:00 03/05/18 18:06 03/05/18 19:00 Intake and Output: 03/05/18 03/06/18 18:59 06:59 Intake Total 752 Balance 752 - Medications Medications: Current Medications Acetaminophen (Tylenol 325mg Tab) 650 mg PO Q6 PRN PRN Reason: Pain, Mild (1-3) Albuterol/Ipratropium (Duoneb 3 Mg/0.5 Mg (3 Ml) Ud) 3 ml INH RQ6 [facility] Last Admin: 03/05/18 20:05 Dose: 3 ml Budesonide (Pulmicort Respules) 0.5 mg INH RQ12 [facility] Last Admin: 03/05/18 20:05 Dose: 0.5 mg Furosemide (Lasix) 20 mg PO DAILY [facility] Last Admin: 03/05/18 10:27 Dose: 20 mg Azithromycin 500 mg/ Sodium (Chloride) 250 mls @ 250 mls/hr IVPB 1800 [facility] PRN Reason: Protocol Last Admin: 03/05/18 18:12 Dose: 250 mls/hr Ceftriaxone Sodium 1 gm/ (Sodium Chloride) 100 mls @ 100 mls/hr IVPB 1700 [facility] PRN Reason: Protocol Last Admin: 03/05/18 18:03 Dose: 100 mls/hr Heparin Sodium/Sodium Chloride (Heparin 38733 Units/250ml 1/2 Normal Saline) 25 ,000 units in 250 mls @ 17.236 mls/hr IV .[id number] PRN; Protocol; 8 UNITS/KG/HR PRN Reason: ADJUST RATE PER PROTOCOL Last Admin: 03/04/18 23:32 Dose: 10 units/kg/hr, 21.546 mls/hr Lidocaine (Lidoderm) 1 ea TD DAILY [facility] Pantoprazole Sodium (Protonix Ec Tab) 40 mg PO DAILY [facility] Last Admin: 03/05/18 10:24 Dose: 40 mg Tiotropium [place] (Spiriva) 18 mcg INH RQ24 [facility] Last Admin: 03/05/18 07:33 Dose: 18 mcg Tobramycin/Dexamethasone (Tobradex Opht Susp) 0 ml OD QID [facility] Last Admin: 03/05/18 22:02 Dose: 2 drop - Labs Labs: 03/05/18 18:58 03/05/18 06:11 PT 12.9 SECONDS (9.7-12.2) H 03/03/18 20:05 INR 1.2 03/03/18 20:05 APTT 76 SECONDS (21-34) H D 03/05/18 06:11 Assessment and Plan - Assessment and Plan (Free Text) Assessment: Patient seen and evaluated personally by ct Plan of care d/w the medical technologist and as documented
[2018-03-05] MEDS: Azithromycin 500 MG in Sodium Chloride 0.9% 250 ML IVPB SCH (18:12)
[2018-03-05 19:00] LABS: BASO % 0.4 % (0.0-2.0); EOS # 0.2 K/uL (0.0-0.7); EOS % 2.3 % (0.0-4.0); HEMOGLOBIN 8.8 g/dL (11.0-16.0); LYMPH # 2.4 K/uL (1.0-4.3); LYMPH % 24.6 % (20.0-40.0); MEAN CELL VOLUME 64.8 fL (81.0-99.0); MEAN CORPUSCULAR HEMOGLOBIN 20.1 pg (27.0-31.0); MEAN PLATELET VOLUME 8.2 fL (7.2-11.7); MONO # 0.7 K/uL (0.0-0.8); MONO % 6.8 % (0.0-10.0); NEUT # 6.5 K/uL (1.8-7.0); NEUT % 65.9 % (50.0-75.0); RBC 4.4 Mil/uL (3.80-5.20); RED CELL DISTRIBUTION WIDTH 20.1 % (11.5-14.5); WHITE BLOOD COUNT 9.9 K/uL (4.8-10.8)
[2018-03-06 00:04] LABS: CK-MB 6.41 ng/mL (0.0-3.38); TROPONIN I 0.014 ng/mL (0.00-0.120)
--- NOTE | 2018-03-06 00:32 | CP.PCM.PN ---
Subjective - Date & Time of Evaluation Date of Evaluation: 03/05/18 Time of Evaluation: 17:10 - Subjective Subjective: The patient had an SVT, and also tachycardia last night. Heart rate was controlled after that. Placed on Cardizem drip, improved hearted. Heparin drip is on. Patient is still having some episodes of shortness of breath. But able to stand up. Denies any chest pain On examination: Vital signs stable. Chest bilateral wheezing noted irregular heart sound. Next immitis edema Assessment and recommendation: 23-year-old female with a history of obesity hypertension hypoventilation. Receiving currently diuretics. On heparin drip. Patient possibly has acute infiltrate. Underlying the primary embolism cannot be ruled out. On heparin drip. Continue the patient on Solu-Medrol. Some improvement noted. I spoke to the patient's family in details about the possible transfer to different institute to get a CAT scan of the lungs. Will follow-up the patient Objective - Vital Signs/Intake and Output Vital Signs (last 24 hours): Temp Pulse Resp BP Pulse Ox 98.5 F 110 H 14 122/42 L 95 03/05/18 16:00 03/05/18 20:09 03/05/18 19:00 03/05/18 18:06 03/05/18 19:00 Intake and Output: 03/05/18 03/06/18 18:59 06:59 Intake Total 752 Balance 752 - Medications Medications: Current Medications Acetaminophen (Tylenol 325mg Tab) 650 mg PO Q6 PRN PRN Reason: Pain, Mild (1-3) Albuterol/Ipratropium (Duoneb 3 Mg/0.5 Mg (3 Ml) Ud) 3 ml INH RQ6 [facility] Last Admin: 03/05/18 20:05 Dose: 3 ml Budesonide (Pulmicort Respules) 0.5 mg INH RQ12 [facility] Last Admin: 03/05/18 20:05 Dose: 0.5 mg Furosemide (Lasix) 20 mg PO DAILY [facility] Last Admin: 03/05/18 10:27 Dose: 20 mg Azithromycin 500 mg/ Sodium (Chloride) 250 mls @ 250 mls/hr IVPB 1800 [facility] PRN Reason: Protocol Last Admin: 03/05/18 18:12 Dose: 250 mls/hr Ceftriaxone Sodium 1 gm/ (Sodium Chloride) 100 mls @ 100 mls/hr IVPB 1700 [facility] PRN Reason: Protocol Last Admin: 03/05/18 18:03 Dose: 100 mls/hr Heparin Sodium/Sodium Chloride (Heparin 96860 Units/250ml 1/2 Normal Saline) 25 ,000 units in 250 mls @ 17.236 mls/hr IV .[id number] PRN; Protocol; 8 UNITS/KG/HR PRN Reason: ADJUST RATE PER PROTOCOL Last Admin: 03/04/18 23:32 Dose: 10 units/kg/hr, 21.546 mls/hr Lidocaine (Lidoderm) 1 ea TD DAILY [facility] Pantoprazole Sodium (Protonix Ec Tab) 40 mg PO DAILY [facility] Last Admin: 03/05/18 10:24 Dose: 40 mg Tiotropium [place] (Spiriva) 18 mcg INH RQ24 [facility] Last Admin: 03/05/18 07:33 Dose: 18 mcg Tobramycin/Dexamethasone (Tobradex Opht Susp) 0 ml OD QID [facility] Last Admin: 03/05/18 22:02 Dose: 2 drop - Labs Labs: 03/05/18 18:58 03/05/18 06:11 PT 12.9 SECONDS (9.7-12.2) H 03/03/18 20:05 INR 1.2 03/03/18 20:05 APTT 76 SECONDS (21-34) H D 03/05/18 06:11
[2018-03-06] MEDS ORDERED: Metoprolol 1 mg/ml Inj IVP ONE ×2 (00:35→00:39)
[2018-03-06] MEDS ORDERED: Albuterol-Ipratrop 3 mg / 0.5 (3 ml) UD INH PRN (00:59)
[2018-03-06] MEDS ORDERED: Digoxin 500 mcg/2ml (0.5 mg/2ml) Inj IVP ONE (01:05)
--- NOTE | 2018-03-06 01:09 | PCM.RRT ---
<Sima Lobo E - Last Filed: 03/06/18 01:10> K9 HANDLER Nurses Assessment - Situation Date: 03/06/18 Time K9 HANDLER was called: 00:40 K9 HANDLER Location:: 9I ICU Room Number: 3 K9 HANDLER Reason for Call: Chest Pain, Tachycardia K9 HANDLER Called By: RN - IV IV Inserted during K9 HANDLER?: No - Respiratory K9 HANDLER Delivery Method: BiPAP @% Oxygen Flow Rate: 30 Received Nebulizer Treatments: Yes (8:00pm) Was the Patient Ventilated with Bag/Mask 100% O2?: No Secretions Suctioned?: No Was the Patient Intubated?: No Was the Patient Placed on a Ventilator?: No - Ventilator Settings SAO2 %: 95 FIO2 (% Oxygen): 30 I.Reason for K9 HANDLER - A) Acute Change in Patient: (Select all that apply): Chest Pain Subjective: Patient is a 23 year old female with past medical history HTN and mild pulmonary HTN as per echocardiogram. During this admission, patient is been treated empirically for PE on heparin drip. K9 HANDLER was called 12:40am for chest pain and new onset of SVT and was noted to have irregular rhythm A. flutter/ A. fibrillation. Upon arrival, vagal massage was initiated with no control, therefore, lopressor 5mg IV was given once, which provided mild relief with heart rate within 127-157, Metoprolol 50mg PO BID and Digoxin 0.5mg IV was given and then phenyphrine 30mg in 250ml (5mcg/min titratable). During the K9 HANDLER, patient seems very comfortable. Decision was also made to transfer the patient from telemetry to ICU. - Neurological Status (Select all that apply): Responsive, Oriented, Verbal, Follows Commands - Respiratory Oxygen Delivery Method: BiPAP @% Oxygen Flow Rate: 30 - Constitutional Appears: No Acute Distress - Head Head Exam: ATRAUMATIC, NORMAL INSPECTION - Eyes Eye Exam: EOMI - Respiratory Exam Respiratory Exam: NORMAL BREATHING PATTERN Additional comments: On BiPAP - Cardiovascular Exam Cardiovascular Exam: Tachycardia, Irregular Rhythm, +S1, +S2 - GI/Abdominal Exam GI & Abdominal Exam: Soft, Normal Bowel Sounds - Neurological Exam Neurological Exam: Alert, Awake, Oriented x3 - Extremities Exam Extremities Exam: Normal Inspection Plan - Assessment of Findings&Treatment Plan Patient is a 23 year old female with past medical history HTN and mild pulmonary HTN as per echocardiogram. During this admission, patient is been treated empirically for PE on heparin drip. K9 HANDLER was called 12:40am for chest pain and new onset of SVT and was noted to have irregular rhythm A. flutter/ A. fibrillation. Plan: Metoprolol 50mg PO BID Digoxin 0.5mg IV phenyphrine 30mg in 250ml (5mcg/min titratable). EKG ALICIA CBC, CMP, MG, Phosphorus, lactate, Anemia workup Transfer to ICU <Fredrick Castrejon P - Last Filed: 03/08/18 07:35> Attending/Attestation - Attestation I have personally seen and examined this patient.: Yes I have fully participated in the care of the patient.: Yes I have reviewed all pertinent clinical information, including history, physical exam and plan: Yes Notes (Text): 03/08/18 07:33 Afib RVR, hypotension Morbid obese Obesity hypoventilation Possible PE Plan IV oral metoprolol IV dig, possible digitalize Phenylephrine Transferred to ICU from tele, patient signed out to ICU
[2018-03-06] MEDS ORDERED: Phenylephrine 30 MG in Sodium Chloride 0.9% 250 ML IV PRN (01:13)
[2018-03-06 01:23] VITALS: PULSE 148
[2018-03-06 01:56] LABS: BASO # 0.1 K/uL (0.0-0.2); BASO % 0.8 % (0.0-2.0); EOS # 0.2 K/uL (0.0-0.7); EOS % 2.5 % (0.0-4.0); HEMOGLOBIN 8.6 g/dL (11.0-16.0); LYMPH # 2.5 K/uL (1.0-4.3); LYMPH % 26.8 % (20.0-40.0); MEAN CELL VOLUME 65.2 fL (81.0-99.0); MEAN CORPUSCULAR HEMOGLOBIN 20.2 pg (27.0-31.0); MEAN PLATELET VOLUME 8.2 fL (7.2-11.7); MONO # 0.6 K/uL (0.0-0.8); MONO % 6.7 % (0.0-10.0); NEUT # 5.9 K/uL (1.8-7.0); NEUT % 63.2 % (50.0-75.0); NRBC % 0.1 % (0.0-2.0); RBC 4.27 Mil/uL (3.80-5.20); RED CELL DISTRIBUTION WIDTH 20.1 % (11.5-14.5); WHITE BLOOD COUNT 9.4 K/uL (4.8-10.8)
--- NOTE | 2018-03-06 02:08 | CP.PCM.CON ---
History of Present Illness - History of Present Illness History of Present Illness: 23 y/o female with obesity,HTN ,anemia admitted 02/28/18 with respiratory failure ,Elevated D-dimer,Effusion/PNA c/o chest pain and found to be in rapid atrial fibrillation,rapid response called and admitted to ICU patient received IV lopresspr,digoxin and PO lopressor Chest pain improved. V/Q scan and CTA not possible due to pt size,venous dopper UE and LE negative - being treated with iv heparin ECHO (02/28): LVEF 69, small inferolateral pericardial effusion, mild pulmonary hypertension Review of Systems - Review of Systems Systems not reviewed;Unavailable: Respiratory Distress - Constitutional Constitutional: absent: Fever, Lethargy - EENT Eyes: absent: Blurred Vision Ears: absent: Ear Pain, Dizziness Nose/Mouth/Throat: absent: Sore Throat, Neck Pain - Cardiovascular Cardiovascular: Chest Pain. absent: Palpitations - Respiratory Respiratory: Dyspnea. absent: Cough - Gastrointestinal Gastrointestinal: absent: Abdominal Pain, Nausea, Vomiting - Neurological Neurological: absent: Dizziness Past Patient History - Infectious Disease Hx of Infectious Diseases: None - Past Medical History & Family History Past Medical History?: Yes - Past Social History Smoking Status: Never Smoked - CARDIAC Hx Hypertension: Yes - PULMONARY Hx Respiratory Disorders: No - NEUROLOGICAL Hx Neurological Disorder: No - ENDOCRINE/METABOLIC Hx Endocrine Disorders: Yes Other/Comment: pre diabetic - HEMATOLOGICAL/ONCOLOGICAL Hx Blood Disorders: No - INTEGUMENTARY Hx Dermatological Problems: No - MUSCULOSKELETAL/RHEUMATOLOGICAL Hx Arthritis: Yes (back, knee, hip) - GASTROINTESTINAL Hx Gastrointestinal Disorders: No - GENITOURINARY/GYNECOLOGICAL Hx Genitourinary Disorders: No - PSYCHIATRIC Hx Substance Use: No - SURGICAL HISTORY Hx Surgeries: No - ANESTHESIA Hx Anesthesia: No Hx Anesthesia Reactions: No Meds Allergies/Adverse Reactions: Allergies Allergy/AdvReac Type Severity Reaction Status Date / Time No Known Allergies Allergy Verified 02/28/18 16:49 - Medications Medications: Current Medications Acetaminophen (Tylenol 325mg Tab) 650 mg PO Q6 PRN PRN Reason: Pain, Mild (1-3) Albuterol/Ipratropium (Duoneb 3 Mg/0.5 Mg (3 Ml) Ud) 3 ml INH RQ6 PRN PRN Reason: Shortness of Breath Budesonide (Pulmicort Respules) 0.5 mg INH RQ12 [facility] Last Admin: 03/05/18 20:05 Dose: 0.5 mg Furosemide (Lasix) 20 mg PO DAILY [facility] Last Admin: 03/05/18 10:27 Dose: 20 mg Azithromycin 500 mg/ Sodium (Chloride) 250 mls @ 250 mls/hr IVPB 1800 [facility]UR[facility] PRN Reason: Protocol Last Admin: 03/05/18 18:12 Dose: 250 mls/hr Ceftriaxone Sodium 1 gm/ (Sodium Chloride) 100 mls @ 100 mls/hr IVPB 1700 [facility]URDO PRN Reason: Protocol Last Admin: 03/05/18 18:03 Dose: 100 mls/hr Heparin Sodium/Sodium Chloride (Heparin 07309 Units/250ml 1/2 Normal Saline) 25 ,000 units in 250 mls @ 17.236 mls/hr IV .[id number] PRN; Protocol; 8 UNITS/KG/HR PRN Reason: ADJUST RATE PER PROTOCOL Last Admin: 03/04/18 23:32 Dose: 10 units/kg/hr, 21.546 mls/hr Phenylephrine HCl 30 mg/ (Sodium Chloride) 253 mls @ 2.53 mls/hr IV .Q24H PRN; Protocol; 5 MCG/MIN PRN Reason: TITRATE PER MD ORDER Lidocaine (Lidoderm) 1 ea TD DAILY [facility] Metoprolol Tartrate (Lopressor) 50 mg PO BID [facility] Last Admin: 03/06/18 01:18 Dose: 50 mg Pantoprazole Sodium (Protonix Ec Tab) 40 mg PO DAILY [facility] Last Admin: 03/05/18 10:24 Dose: 40 mg Tiotropium [place] (Spiriva) 18 mcg INH RQ24 [facility] Last Admin: 03/05/18 07:33 Dose: 18 mcg Tobramycin/Dexamethasone (Tobradex Opht Susp) 0 ml OD QID [facility] Last Admin: 03/05/18 22:02 Dose: 2 drop Physical Exam - Constitutional Appears: In Acute Distress - Head Exam Head Exam: ATRAUMATIC, NORMAL INSPECTION, NORMOCEPHALIC - Eye Exam Eye Exam: EOMI, PERRL - ENT Exam ENT Exam: Mucous Membranes Moist, Normal Exam - Neck Exam Neck exam: Positive for: Normal Inspection - Respiratory Exam Respiratory Exam: Clear to Auscultation Bilateral - Cardiovascular Exam Cardiovascular Exam: Tachycardia - GI/Abdominal Exam GI & Abdominal Exam: Normal Bowel Sounds, Soft. absent: Tenderness - Extremities Exam Extremities exam: Negative for: pedal edema - Neurological Exam Neurological exam: Alert, Oriented x3 - Skin Skin Exam: Normal Color, Warm Results - Vital Signs Recent Vital Signs: Last Vital Signs Temp 98.5 F 03/05/18 16:00 Pulse 146 H 03/06/18 00:38 Resp 14 03/05/18 19:00 BP 122/42 L 03/05/18 18:06 Pulse Ox 95 03/05/18 19:00 - Labs Result Diagrams: 03/06/18 01:50 03/05/18 06:11 Labs: Laboratory Results - last 24 hr 03/05/18 03/05/18 03/05/18 05:27 06:11 06:11 WBC 9.7 RBC 4.15 Hgb 8.5 L Hct 27.1 L MCV 65.2 L MCH 20.6 L MCHC 31.6 L RDW 20.2 H Plt Count 187 D MPV 8.4 Neut % (Auto) 57.9 Lymph % (Auto) 31.8 [place] % (Auto) 7.3 Eos % (Auto) 2.8 Baso % (Auto) 0.2 Neut # (Auto) 5.6 Lymph # (Auto) 3.1 [place] # (Auto) 0.7 Eos # (Auto) 0.3 Baso # (Auto) 0.0 Retic Count APTT 76 H D Puncture Site L rad pCO2 66 H pO2 66 L HCO3 32.1 H ABG pH 7.35 ABG Total CO2 38.4 H ABG O2 Saturation 96.0 ABG Base Excess 9.3 H ABG Hemoglobin 8.6 L ABG Carboxyhemoglobin 2.6 H POC ABG HHb (Measured) 3.9 ABG Methemoglobin 0.8 Chad Test Pos A-a O2 Difference 65.0 Respiratory Index 1.0 Hgb O2 Saturation 92.7 L Vent Mode Bipap FiO2 30.0 Inspiratory BiPAP 16 Expiratory BiPAP 8 Sodium Potassium Chloride Carbon Dioxide Anion Gap BUN Creatinine Est GFR ( Amer) Est GFR (Non-Af Amer) POC Glucose (mg/dL) Random Glucose Calcium Total Bilirubin AST ALT Alkaline Phosphatase Total Creatine Kinase CK-MB (Mass) Troponin I NT-Pro-B Natriuret Pep Total Protein Albumin Globulin Albumin/Globulin Ratio 03/05/18 03/05/18 03/05/18 06:11 07:25 12:19 WBC RBC Hgb Hct MCV MCH MCHC RDW Plt Count MPV Neut % (Auto) Lymph % (Auto) [place] % (Auto) Eos % (Auto) Baso % (Auto) Neut # (Auto) Lymph # (Auto) [place] # (Auto) Eos # (Auto) Baso # (Auto) Retic Count APTT Puncture Site pCO2 pO2 HCO3 ABG pH ABG Total CO2 ABG O2 Saturation ABG Base Excess ABG Hemoglobin ABG Carboxyhemoglobin POC ABG HHb (Measured) ABG Methemoglobin Chad Test A-a O2 Difference Respiratory Index Hgb O2 Saturation Vent Mode FiO2 Inspiratory BiPAP Expiratory BiPAP Sodium 137 Potassium 4.1 Chloride 98 Carbon Dioxide 37 H Anion Gap 5 L BUN 9 Creatinine 0.6 L Est GFR ( Amer) > 60 Est GFR (Non-Af Amer) > 60 POC Glucose (mg/dL) 99 99 Random Glucose 105 Calcium 8.6 Total Bilirubin 0.6 AST 49 H ALT 38 Alkaline Phosphatase 57 Total Creatine Kinase CK-MB (Mass) Troponin I NT-Pro-B Natriuret Pep 168 Total Protein 7.8 Albumin 3.1 L Globulin 4.7 H Albumin/Globulin Ratio 0.6 L 03/05/18 03/05/18 03/05/18 16:50 18:58 21:22 WBC 9.9 RBC 4.40 Hgb 8.8 L Hct 28.5 L MCV 64.8 L MCH 20.1 L MCHC 31.0 L RDW 20.1 H Plt Count 179 MPV 8.2 Neut % (Auto) 65.9 Lymph % (Auto) 24.6 [place] % (Auto) 6.8 Eos % (Auto) 2.3 Baso % (Auto) 0.4 Neut # (Auto) 6.5 Lymph # (Auto) 2.4 [place] # (Auto) 0.7 Eos # (Auto) 0.2 Baso # (Auto) 0.0 Retic Count APTT Puncture Site pCO2 pO2 HCO3 ABG pH ABG Total CO2 ABG O2 Saturation ABG Base Excess ABG Hemoglobin ABG Carboxyhemoglobin POC ABG HHb (Measured) ABG Methemoglobin Chad Test A-a O2 Difference Respiratory Index Hgb O2 Saturation Vent Mode FiO2 Inspiratory BiPAP Expiratory BiPAP Sodium Potassium Chloride Carbon Dioxide Anion Gap BUN Creatinine Est GFR ( Amer) Est GFR (Non-Af Amer) POC Glucose (mg/dL) 97 102 Random Glucose Calcium Total Bilirubin AST ALT Alkaline Phosphatase Total Creatine Kinase CK-MB (Mass) Troponin I NT-Pro-B Natriuret Pep Total Protein Albumin Globulin Albumin/Globulin Ratio 03/05/18 03/06/18 03/06/18 23:37 01:50 01:50 WBC 9.4 RBC 4.27 Hgb 8.6 L Hct 27.8 L MCV 65.2 L MCH 20.2 L MCHC 31.0 L RDW 20.1 H Plt Count 174 MPV 8.2 Neut % (Auto) 63.2 Lymph % (Auto) 26.8 [place] % (Auto) 6.7 Eos % (Auto) 2.5 Baso % (Auto) 0.8 Neut # (Auto) 5.9 Lymph # (Auto) 2.5 [place] # (Auto) 0.6 Eos # (Auto) 0.2 Baso # (Auto) 0.1 Retic Count 1.0 APTT 55 H D Puncture Site pCO2 pO2 HCO3 ABG pH ABG Total CO2 ABG O2 Saturation ABG Base Excess ABG Hemoglobin ABG Carboxyhemoglobin POC ABG HHb (Measured) ABG Methemoglobin Chad Test A-a O2 Difference Respiratory Index Hgb O2 Saturation Vent Mode FiO2 Inspiratory BiPAP Expiratory BiPAP Sodium Potassium Chloride Carbon Dioxide Anion Gap BUN Creatinine Est GFR ( Amer) Est GFR (Non-Af Amer) POC Glucose (mg/dL) Random Glucose Calcium Total Bilirubin AST ALT Alkaline Phosphatase Total Creatine Kinase 225 H CK-MB (Mass) 6.41 H Troponin I 0.0140 NT-Pro-B Natriuret Pep Total Protein Albumin Globulin Albumin/Globulin Ratio - EKG Data EKG Interpreted by: Myself Assessment & Plan - Assessment and Plan (Free Text) Assessment: 1.Atrial Fibrillation with Rapid Ventricular rate start cardizem drip labst 2.Elevated D-dimer on IV heparin V/Q scan and CTA not possible due to pt size,venous dopper UE and LE negative ECHO (02/28): LVEF 69, small inferolateral pericardial effusion, mild pulmonary hypertension 3.Effusion/Pneumonia /respiratory failure-on antibiotics/BIPAP 4.Anemia-monitor Hb 5HTN controlled 6.Obesity,?FANY on BIPAP
[2018-03-06 02:25] LABS: IRON 16 ug/dL (37-170)
[2018-03-06 02:28] LABS: ALB/GLOB RATIO 0.6 (1.0-2.1); ALT/SGPT 43 U/L (9-52); AST/SGOT 50 U/L (14-36); BLOOD UREA NITROGEN 9 mg/dL (7-17); CALCIUM 8.6 mg/dl (8.6-10.4); GFR AFRICAN-AMERICAN > 60; GFR NON-AFRICAN AMERICAN > 60
[2018-03-06 02:36] LABS: % IRON SATURATION 7 (20-55)
[2018-03-06 02:38] LABS: CK-MB 6.71 ng/mL (0.0-3.38)
[2018-03-06 02:54] LABS: GRANULAR CAST 5 /lpf (0-1); SQUAMOUS EPITHIAL 5 /hpf (0-5); URINE BACTERIA FEW (<OCC); URINE BILIRUBIN NEGATIVE (NEGATIVE); URINE BLOOD 2+ (NEGATIVE); URINE CLARITY Hazy (Clear); URINE COLOR Amber (YELLOW); URINE GLUCOSE (UA) NORMAL (Normal); URINE LEUKOCYTE ESTERASE TRACE Leu/uL (Negative); URINE PROTEIN 1+ mg/dL (NEGATIVE); URINE UROBILINOGEN NORMAL mg/dL (0.2-1.0)
[2018-03-06] MEDS: Heparin25000 units/250ml 1/2NS 25,000 UNITS/250 ML BAG IV PRN ×2 (02:55→21:00)
[2018-03-06 03:00] LABS: FERRITIN 28.9 ng/mL
[2018-03-06 04:40] LABS: IRON 18 ug/dL (37-170)
[2018-03-06 04:48] LABS: % IRON SATURATION 8 (20-55); TOTAL IRON BINDING CAPACITY 232 ug/dL (250-450)
--- NOTE | 2018-03-06 06:40 | CP.CCUPN ---
<HerrmannCelina - Last Filed: 03/06/18 11:25> CCU Subjective - Physician Review Subjective (Free Text): 23 year old AA female with PMHx of HTN and obesity presenting with dyspnea, admitted for suspected PE w/ elevated D-dimer 1883. Treated empirically for PE on heparin drip and transferred to [facility]. Readmitted to ICU after 2 episodes of chest pain, the second prompting an [employer] at 12:40am(03/06) accompanied by SVT and rapid A fib. Pt unresponsive to vagal massage. Lopressor and digoxin given, cardizem drip initiated. 03/06/18 06:29 03/06/18 07:09 CCU Objective - Vital Signs / Intake & Output Vital Signs (Last 4 hours): Vital Signs Pulse Resp BP Pulse Ox 03/06/18 05:03 140 H 36 H 115/46 L 94 L 03/06/18 04:33 122 H 28 H 111/41 L 94 L 03/06/18 04:03 128 H 30 H 108/46 L 94 L 03/06/18 03:34 148 H 36 H 116/68 95 03/06/18 02:55 100/45 L 03/06/18 02:40 141 H 38 H 108/43 L 94 L Intake and Output (Last 8hrs): Intake & Output 03/05/18 03/05/18 03/06/18 14:59 22:59 06:59 Intake Total 752 860.5 Output Total 510 Balance 752 350.5 Intake: IV 250 Intake, IV Amount 252 260.5 Left PICC 24 Left Upper arm 252 129 R hand 107.5 Oral 500 350 Output: Urine 510 Urethral (Willis) 210 Urine, Voided 300 Other: # Voids Urine, Voided 4 1 # Bowel Movements 1 0 - Physical Exam Head: Positive for: Atraumatic, Normocephalic Extroacular Muscles: Positive for: EOMI Conjunctiva: Positive for: Normal, Injected (right eye injected, upper lid swollen) Mouth: Positive for: Moist Mucous Membranes Cardiovascular: Positive for: Regular Rate and Rhythm. Negative for: Murmurs Abdomen: Positive for: Normal Bowel Sounds. Negative for: Tenderness, Distention Back: Positive for: Normal Inspection Upper Extremity: Positive for: Edema (right distal forearm edematous from infiltrated line), NORMAL PULSES Lower Extremity: Positive for: Edema (b/l edema) Neurological: Positive for: GCS=15 Skin: Positive for: Warm, Normal Color Psychiatric: Positive for: Alert, Oriented x 3 - Medications Active Medications: Active Medications Generic Name Dose Route Start Last Admin Trade Name Freq PRN Reason Stop Dose Admin Acetaminophen 650 mg 03/05/18 18:06 Tylenol 325mg Tab PO Q6 PRN Pain, Mild (1-3) Albuterol/Ipratropium 3 ml 03/06/18 00:59 Duoneb 3 Mg/0.5 Mg (3 Ml) Ud INH RQ6 PRN Shortness of Breath Budesonide 0.5 mg 02/28/18 21:45 03/05/18 20:05 Pulmicort Respules INH 0.5 mg RQ12 ZURDO Administration Furosemide 20 mg 03/03/18 10:00 03/05/18 10:27 Lasix PO 20 mg DAILY ZURDO Administration Azithromycin 500 mg/ Sodium 250 mls @ 250 mls/hr 03/01/18 18:00 03/05/18 18: 12 Chloride IVPB 250 mls/hr 1800 ZURDO Administration Protocol Ceftriaxone Sodium 1 gm/ 100 mls @ 100 mls/hr 03/01/18 17:00 03/05/18 18:03 Sodium Chloride IVPB 100 mls/hr 1700 ZURDO Administration Protocol Heparin Sodium/Sodium Chloride 25,000 units in 250 mls @ 17.236 mls/hr 20:53 03/06/18 02:55 Heparin 65108 Units/250ml 1/2 Normal Saline IV 10 units/kg/hr .[id number] PRN 21.546 mls/hr ADJUST RATE PER PROTOCOL Administration Protocol 8 UNITS/KG/HR Phenylephrine HCl 30 mg/ 253 mls @ 2.53 mls/hr 03/06/18 01:13 Sodium Chloride IV .Q24H PRN TITRATE PER MD ORDER Protocol 5 MCG/MIN Diltiazem HCl 125 mg/ Sodium 125 mls @ 5 mls/hr 03/06/18 02:15 03/06/18 04:57 Chloride IV 7 mg/hr .Q24H ZURDO 7 mls/hr Protocol Titration 5 MG/HR Lidocaine 1 ea 03/06/18 10:00 Lidoderm TD DAILY ZURDO Metoprolol Tartrate 50 mg 03/06/18 01:00 03/06/18 01:18 Lopressor PO 50 mg BID ZURDO Administration Pantoprazole Sodium 40 mg 03/03/18 10:00 03/05/18 10:24 Protonix Ec Tab PO 40 mg DAILY ZURDO Administration Tiotropium [place] 18 mcg 03/01/18 08:00 03/05/18 07:33 Spiriva INH 18 mcg RQ24 ZURDO Administration Tobramycin/Dexamethasone 0 ml 03/02/18 10:00 03/05/18 22:02 Tobradex Opht Susp OD 2 drop QID ZURDO Administration - Patient Studies Lab Studies: Lab Studies 03/06/18 03/06/18 03/06/18 Range/Units 02:43 02:43 01:50 WBC (4.8-10.8) K/uL RBC (3.80-5.20) Mil/uL Hgb (11.0-16.0) g/dL Hct (34.0-47.0) % MCV (81.0-99.0) fL MCH (27.0-31.0) pg MCHC (33.0-37.0) g/dL RDW (11.5-14.5) % Plt Count (130-400) K/uL MPV (7.2-11.7) fL Neut % (Auto) (50.0-75.0) % Lymph % (Auto) (20.0-40.0) % Orange % (Auto) (0.0-10.0) % Eos % (Auto) (0.0-4.0) % Baso % (Auto) (0.0-2.0) % Neut # (Auto) (1.8-7.0) K/uL Lymph # (Auto) (1.0-4.3) K/uL Orange # (Auto) (0.0-0.8) K/uL Eos # (Auto) (0.0-0.7) K/uL Baso # (Auto) (0.0-0.2) K/uL Retic Count (0.5-1.5) % APTT (21-34) SECONDS Sodium (132-148) mmol/L Potassium (3.6-5.2) mmol/L Chloride (98-107) mmol/L Carbon Dioxide (22-30) mmol/L Anion Gap (10-20) BUN (7-17) mg/dL Creatinine (0.7-1.2) mg/dL Est GFR ( Amer) Est GFR (Non-Af Amer) POC Glucose (mg/dL) (65-110) mg/dL Random Glucose (65-105) mg/dL Lactic Acid 0.6 L (0.7-2.1) mmol/L Calcium (8.6-10.4) mg/dl Phosphorus (2.5-4.5) mg/dL Magnesium (1.6-2.3) mg/dL Iron (37-170) ug/dL TIBC (250-450) ug/dL % Saturation (20-55) Transferrin (206-381) mg/dL Ferritin ng/mL Total Bilirubin (0.2-1.3) mg/dL AST (14-36) U/L ALT (9-52) U/L Alkaline Phosphatase (38-126) U/L Total Creatine Kinase (30-135) U/L CK-MB (Mass) (0.0-3.38) ng/mL Troponin I (0.00-0.120) ng/mL NT-Pro-B Natriuret Pep (0-450) pg/mL Total Protein (6.3-8.3) g/dL Albumin (3.5-5.0) g/dL Globulin (2.2-3.9) gm/dL Albumin/Globulin Ratio (1.0-2.1) TSH 3rd Generation 2.61 (0.46-4.68) mIU/L Urine Color [place] (YELLOW) Urine Clarity Hazy (Clear) Urine pH 5.0 (5.0-8.0) Ur Specific [place] 1.020 (1.003-1.030) Urine Protein 1+ H (NEGATIVE) mg/dL Urine Glucose (UA) Normal (Normal) mg/dL Urine Ketones Negative (NEGATIVE) mg/dL Urine Blood 2+ H (NEGATIVE) Urine Nitrate Negative (NEGATIVE) Urine Bilirubin Negative (NEGATIVE) Urine Urobilinogen Normal (0.2-1.0) mg/dL Ur Leukocyte Esterase Trace (Negative) Quentin/uL Urine WBC (Auto) 8 H (0-5) /hpf Urine RBC (Auto) 17 H (0-3) /hpf Ur Squamous Epith Cells 5 (0-5) /hpf Urine Bacteria Few H (<OCC) Hyaline Casts 6-10 H (0-2) /lpf Granular Casts (Auto) 5 (0-1) /lpf 03/06/18 03/06/18 03/06/18 Range/Units 01:50 01:50 01:50 WBC (4.8-10.8) K/uL RBC (3.80-5.20) Mil/uL Hgb (11.0-16.0) g/dL Hct (34.0-47.0) % MCV (81.0-99.0) fL MCH (27.0-31.0) pg MCHC (33.0-37.0) g/dL RDW (11.5-14.5) % Plt Count (130-400) K/uL MPV (7.2-11.7) fL Neut % (Auto) (50.0-75.0) % Lymph % (Auto) (20.0-40.0) % Orange % (Auto) (0.0-10.0) % Eos % (Auto) (0.0-4.0) % Baso % (Auto) (0.0-2.0) % Neut # (Auto) (1.8-7.0) K/uL Lymph # (Auto) (1.0-4.3) K/uL Orange # (Auto) (0.0-0.8) K/uL Eos # (Auto) (0.0-0.7) K/uL Baso # (Auto) (0.0-0.2) K/uL Retic Count (0.5-1.5) % APTT 55 H D (21-34) SECONDS Sodium 139 (132-148) mmol/L Potassium 4.1 (3.6-5.2) mmol/L Chloride 99 (98-107) mmol/L Carbon Dioxide 34 H (22-30) mmol/L Anion Gap 9 L (10-20) BUN 9 (7-17) mg/dL Creatinine 0.6 L (0.7-1.2) mg/dL Est GFR ( Amer) > 60 Est GFR (Non-Af Amer) > 60 POC Glucose (mg/dL) (65-110) mg/dL Random Glucose 108 H (65-105) mg/dL Lactic Acid (0.7-2.1) mmol/L Calcium 8.6 (8.6-10.4) mg/dl Phosphorus 4.1 (2.5-4.5) mg/dL Magnesium 1.7 (1.6-2.3) mg/dL Iron (37-170) ug/dL TIBC (250-450) ug/dL % Saturation (20-55) Transferrin 146.32 L (206-381) mg/dL Ferritin 28.9 ng/mL Total Bilirubin 0.5 (0.2-1.3) mg/dL AST 50 H (14-36) U/L ALT 43 (9-52) U/L Alkaline Phosphatase 64 (38-126) U/L Total Creatine Kinase 242 H (30-135) U/L CK-MB (Mass) 6.71 H (0.0-3.38) ng/mL Troponin I 0.0210 (0.00-0.120) ng/mL NT-Pro-B Natriuret Pep (0-450) pg/mL Total Protein 7.7 (6.3-8.3) g/dL Albumin 3.0 L (3.5-5.0) g/dL Globulin 4.7 H (2.2-3.9) gm/dL Albumin/Globulin Ratio 0.6 L (1.0-2.1) TSH 3rd Generation (0.46-4.68) mIU/L Urine Color (YELLOW) Urine Clarity (Clear) Urine pH (5.0-8.0) Ur Specific [place] (1.003-1.030) Urine Protein (NEGATIVE) mg/dL Urine Glucose (UA) (Normal) mg/dL Urine Ketones (NEGATIVE) mg/dL Urine Blood (NEGATIVE) Urine Nitrate (NEGATIVE) Urine Bilirubin (NEGATIVE) Urine Urobilinogen (0.2-1.0) mg/dL Ur Leukocyte Esterase (Negative) Quentin/uL Urine WBC (Auto) (0-5) /hpf Urine RBC (Auto) (0-3) /hpf Ur Squamous Epith Cells (0-5) /hpf Urine Bacteria (<OCC) Hyaline Casts (0-2) /lpf Granular Casts (Auto) (0-1) /lpf 03/06/18 03/06/18 03/06/18 Range/Units 01:50 01:50 01:50 WBC 9.4 (4.8-10.8) K/uL RBC 4.27 (3.80-5.20) Mil/uL Hgb 8.6 L (11.0-16.0) g/dL Hct 27.8 L (34.0-47.0) % MCV 65.2 L (81.0-99.0) fL MCH 20.2 L (27.0-31.0) pg MCHC 31.0 L (33.0-37.0) g/dL RDW 20.1 H (11.5-14.5) % Plt Count 174 (130-400) K/uL MPV 8.2 (7.2-11.7) fL Neut % (Auto) 63.2 (50.0-75.0) % Lymph % (Auto) 26.8 (20.0-40.0) % Orange % (Auto) 6.7 (0.0-10.0) % Eos % (Auto) 2.5 (0.0-4.0) % Baso % (Auto) 0.8 (0.0-2.0) % Neut # (Auto) 5.9 (1.8-7.0) K/uL Lymph # (Auto) 2.5 (1.0-4.3) K/uL Orange # (Auto) 0.6 (0.0-0.8) K/uL Eos # (Auto) 0.2 (0.0-0.7) K/uL Baso # (Auto) 0.1 (0.0-0.2) K/uL Retic Count 1.0 (0.5-1.5) % APTT (21-34) SECONDS Sodium (132-148) mmol/L Potassium (3.6-5.2) mmol/L Chloride (98-107) mmol/L Carbon Dioxide (22-30) mmol/L Anion Gap (10-20) BUN (7-17) mg/dL Creatinine (0.7-1.2) mg/dL Est GFR ( Amer) Est GFR (Non-Af Amer) POC Glucose (mg/dL) (65-110) mg/dL Random Glucose (65-105) mg/dL Lactic Acid (0.7-2.1) mmol/L Calcium (8.6-10.4) mg/dl Phosphorus (2.5-4.5) mg/dL Magnesium (1.6-2.3) mg/dL Iron 16 L 18 L (37-170) ug/dL TIBC 232 L (250-450) ug/dL % Saturation 7 L 8 L (20-55) Transferrin (206-381) mg/dL Ferritin ng/mL Total Bilirubin (0.2-1.3) mg/dL AST (14-36) U/L ALT (9-52) U/L Alkaline Phosphatase (38-126) U/L Total Creatine Kinase (30-135) U/L CK-MB (Mass) (0.0-3.38) ng/mL Troponin I (0.00-0.120) ng/mL NT-Pro-B Natriuret Pep (0-450) pg/mL Total Protein (6.3-8.3) g/dL Albumin (3.5-5.0) g/dL Globulin (2.2-3.9) gm/dL Albumin/Globulin Ratio (1.0-2.1) TSH 3rd Generation (0.46-4.68) mIU/L Urine Color (YELLOW) Urine Clarity (Clear) Urine pH (5.0-8.0) Ur Specific [place] (1.003-1.030) Urine Protein (NEGATIVE) mg/dL Urine Glucose (UA) (Normal) mg/dL Urine Ketones (NEGATIVE) mg/dL Urine Blood (NEGATIVE) Urine Nitrate (NEGATIVE) Urine Bilirubin (NEGATIVE) Urine Urobilinogen (0.2-1.0) mg/dL Ur Leukocyte Esterase (Negative) Quentin/uL Urine WBC (Auto) (0-5) /hpf Urine RBC (Auto) (0-3) /hpf Ur Squamous Epith Cells (0-5) /hpf Urine Bacteria (<OCC) Hyaline Casts (0-2) /lpf Granular Casts (Auto) (0-1) /lpf 03/05/18 03/05/18 03/05/18 Range/Units 23:37 21:22 18:58 WBC 9.9 (4.8-10.8) K/uL RBC 4.40 (3.80-5.20) Mil/uL Hgb 8.8 L (11.0-16.0) g/dL Hct 28.5 L (34.0-47.0) % MCV 64.8 L (81.0-99.0) fL MCH 20.1 L (27.0-31.0) pg MCHC 31.0 L (33.0-37.0) g/dL RDW 20.1 H (11.5-14.5) % Plt Count 179 (130-400) K/uL MPV 8.2 (7.2-11.7) fL Neut % (Auto) 65.9 (50.0-75.0) % Lymph % (Auto) 24.6 (20.0-40.0) % Orange % (Auto) 6.8 (0.0-10.0) % Eos % (Auto) 2.3 (0.0-4.0) % Baso % (Auto) 0.4 (0.0-2.0) % Neut # (Auto) 6.5 (1.8-7.0) K/uL Lymph # (Auto) 2.4 (1.0-4.3) K/uL Orange # (Auto) 0.7 (0.0-0.8) K/uL Eos # (Auto) 0.2 (0.0-0.7) K/uL Baso # (Auto) 0.0 (0.0-0.2) K/uL Retic Count (0.5-1.5) % APTT (21-34) SECONDS Sodium (132-148) mmol/L Potassium (3.6-5.2) mmol/L Chloride (98-107) mmol/L Carbon Dioxide (22-30) mmol/L Anion Gap (10-20) BUN (7-17) mg/dL Creatinine (0.7-1.2) mg/dL Est GFR ( Amer) Est GFR (Non-Af Amer) POC Glucose (mg/dL) 102 (65-110) mg/dL Random Glucose (65-105) mg/dL Lactic Acid (0.7-2.1) mmol/L Calcium (8.6-10.4) mg/dl Phosphorus (2.5-4.5) mg/dL Magnesium (1.6-2.3) mg/dL Iron (37-170) ug/dL TIBC (250-450) ug/dL % Saturation (20-55) Transferrin (206-381) mg/dL Ferritin ng/mL Total Bilirubin (0.2-1.3) mg/dL AST (14-36) U/L ALT (9-52) U/L Alkaline Phosphatase (38-126) U/L Total Creatine Kinase 225 H (30-135) U/L CK-MB (Mass) 6.41 H (0.0-3.38) ng/mL Troponin I 0.0140 (0.00-0.120) ng/mL NT-Pro-B Natriuret Pep (0-450) pg/mL Total Protein (6.3-8.3) g/dL Albumin (3.5-5.0) g/dL Globulin (2.2-3.9) gm/dL Albumin/Globulin Ratio (1.0-2.1) TSH 3rd Generation (0.46-4.68) mIU/L Urine Color (YELLOW) Urine Clarity (Clear) Urine pH (5.0-8.0) Ur Specific [place] (1.003-1.030) Urine Protein (NEGATIVE) mg/dL Urine Glucose (UA) (Normal) mg/dL Urine Ketones (NEGATIVE) mg/dL Urine Blood (NEGATIVE) Urine Nitrate (NEGATIVE) Urine Bilirubin (NEGATIVE) Urine Urobilinogen (0.2-1.0) mg/dL Ur Leukocyte Esterase (Negative) Quentin/uL Urine WBC (Auto) (0-5) /hpf Urine RBC (Auto) (0-3) /hpf Ur Squamous Epith Cells (0-5) /hpf Urine Bacteria (<OCC) Hyaline Casts (0-2) /lpf Granular Casts (Auto) (0-1) /lpf 03/05/18 03/05/18 03/05/18 Range/Units 16:50 12:19 07:25 WBC (4.8-10.8) K/uL RBC (3.80-5.20) Mil/uL Hgb (11.0-16.0) g/dL Hct (34.0-47.0) % MCV (81.0-99.0) fL MCH (27.0-31.0) pg MCHC (33.0-37.0) g/dL RDW (11.5-14.5) % Plt Count (130-400) K/uL MPV (7.2-11.7) fL Neut % (Auto) (50.0-75.0) % Lymph % (Auto) (20.0-40.0) % Orange % (Auto) (0.0-10.0) % Eos % (Auto) (0.0-4.0) % Baso % (Auto) (0.0-2.0) % Neut # (Auto) (1.8-7.0) K/uL Lymph # (Auto) (1.0-4.3) K/uL [place] # (Auto) (0.0-0.8) K/uL Eos # (Auto) (0.0-0.7) K/uL Baso # (Auto) (0.0-0.2) K/uL Retic Count (0.5-1.5) % APTT (21-34) SECONDS Sodium (132-148) mmol/L Potassium (3.6-5.2) mmol/L Chloride (98-107) mmol/L Carbon Dioxide (22-30) mmol/L Anion Gap (10-20) BUN (7-17) mg/dL Creatinine (0.7-1.2) mg/dL Est GFR ( Amer) Est GFR (Non-Af Amer) POC Glucose (mg/dL) 97 99 99 (65-110) mg/dL Random Glucose (65-105) mg/dL Lactic Acid (0.7-2.1) mmol/L Calcium (8.6-10.4) mg/dl Phosphorus (2.5-4.5) mg/dL Magnesium (1.6-2.3) mg/dL Iron (37-170) ug/dL TIBC (250-450) ug/dL % Saturation (20-55) Transferrin (206-381) mg/dL Ferritin ng/mL Total Bilirubin (0.2-1.3) mg/dL AST (14-36) U/L ALT (9-52) U/L Alkaline Phosphatase (38-126) U/L Total Creatine Kinase (30-135) U/L CK-MB (Mass) (0.0-3.38) ng/mL Troponin I (0.00-0.120) ng/mL NT-Pro-B Natriuret Pep (0-450) pg/mL Total Protein (6.3-8.3) g/dL Albumin (3.5-5.0) g/dL Globulin (2.2-3.9) gm/dL Albumin/Globulin Ratio (1.0-2.1) TSH 3rd Generation (0.46-4.68) mIU/L Urine Color (YELLOW) Urine Clarity (Clear) Urine pH (5.0-8.0) Ur Specific [place] (1.003-1.030) Urine Protein (NEGATIVE) mg/dL Urine Glucose (UA) (Normal) mg/dL Urine Ketones (NEGATIVE) mg/dL Urine Blood (NEGATIVE) Urine Nitrate (NEGATIVE) Urine Bilirubin (NEGATIVE) Urine Urobilinogen (0.2-1.0) mg/dL Ur Leukocyte Esterase (Negative) Quentin/uL Urine WBC (Auto) (0-5) /hpf Urine RBC (Auto) (0-3) /hpf Ur Squamous Epith Cells (0-5) /hpf Urine Bacteria (<OCC) Hyaline Casts (0-2) /lpf Granular Casts (Auto) (0-1) /lpf 03/05/18 03/05/18 03/05/18 Range/Units 06:11 06:11 06:11 WBC 9.7 (4.8-10.8) K/uL RBC 4.15 (3.80-5.20) Mil/uL Hgb 8.5 L (11.0-16.0) g/dL Hct 27.1 L (34.0-47.0) % MCV 65.2 L (81.0-99.0) fL MCH 20.6 L (27.0-31.0) pg MCHC 31.6 L (33.0-37.0) g/dL RDW 20.2 H (11.5-14.5) % Plt Count 187 D (130-400) K/uL MPV 8.4 (7.2-11.7) fL Neut % (Auto) 57.9 (50.0-75.0) % Lymph % (Auto) 31.8 (20.0-40.0) % [place] % (Auto) 7.3 (0.0-10.0) % Eos % (Auto) 2.8 (0.0-4.0) % Baso % (Auto) 0.2 (0.0-2.0) % Neut # (Auto) 5.6 (1.8-7.0) K/uL Lymph # (Auto) 3.1 (1.0-4.3) K/uL [place] # (Auto) 0.7 (0.0-0.8) K/uL Eos # (Auto) 0.3 (0.0-0.7) K/uL Baso # (Auto) 0.0 (0.0-0.2) K/uL Retic Count (0.5-1.5) % APTT 76 H D (21-34) SECONDS Sodium 137 (132-148) mmol/L Potassium 4.1 (3.6-5.2) mmol/L Chloride 98 (98-107) mmol/L Carbon Dioxide 37 H (22-30) mmol/L Anion Gap 5 L (10-20) BUN 9 (7-17) mg/dL Creatinine 0.6 L (0.7-1.2) mg/dL Est GFR ( Amer) > 60 Est GFR (Non-Af Amer) > 60 POC Glucose (mg/dL) (65-110) mg/dL Random Glucose 105 (65-105) mg/dL Lactic Acid (0.7-2.1) mmol/L Calcium 8.6 (8.6-10.4) mg/dl Phosphorus (2.5-4.5) mg/dL Magnesium (1.6-2.3) mg/dL Iron (37-170) ug/dL TIBC (250-450) ug/dL % Saturation (20-55) Transferrin (206-381) mg/dL Ferritin ng/mL Total Bilirubin 0.6 (0.2-1.3) mg/dL AST 49 H (14-36) U/L ALT 38 (9-52) U/L Alkaline Phosphatase 57 (38-126) U/L Total Creatine Kinase (30-135) U/L CK-MB (Mass) (0.0-3.38) ng/mL Troponin I (0.00-0.120) ng/mL NT-Pro-B Natriuret Pep 168 (0-450) pg/mL Total Protein 7.8 (6.3-8.3) g/dL Albumin 3.1 L (3.5-5.0) g/dL Globulin 4.7 H (2.2-3.9) gm/dL Albumin/Globulin Ratio 0.6 L (1.0-2.1) TSH 3rd Generation (0.46-4.68) mIU/L Urine Color (YELLOW) Urine Clarity (Clear) Urine pH (5.0-8.0) Ur Specific [place] (1.003-1.030) Urine Protein (NEGATIVE) mg/dL Urine Glucose (UA) (Normal) mg/dL Urine Ketones (NEGATIVE) mg/dL Urine Blood (NEGATIVE) Urine Nitrate (NEGATIVE) Urine Bilirubin (NEGATIVE) Urine Urobilinogen (0.2-1.0) mg/dL Ur Leukocyte Esterase (Negative) Quentin/uL Urine WBC (Auto) (0-5) /hpf Urine RBC (Auto) (0-3) /hpf Ur Squamous Epith Cells (0-5) /hpf Urine Bacteria (<OCC) Hyaline Casts (0-2) /lpf Granular Casts (Auto) (0-1) /lpf Laboratory Results - last 24 hr 03/05/18 03/05/18 03/05/18 06:11 06:11 06:11 WBC 9.7 RBC 4.15 Hgb 8.5 L Hct 27.1 L MCV 65.2 L MCH 20.6 L MCHC 31.6 L RDW 20.2 H Plt Count 187 D MPV 8.4 Neut % (Auto) 57.9 Lymph % (Auto) 31.8 [place] % (Auto) 7.3 Eos % (Auto) 2.8 Baso % (Auto) 0.2 Neut # (Auto) 5.6 Lymph # (Auto) 3.1 [place] # (Auto) 0.7 Eos # (Auto) 0.3 Baso # (Auto) 0.0 Retic Count APTT 76 H D Sodium 137 Potassium 4.1 Chloride 98 Carbon Dioxide 37 H Anion Gap 5 L BUN 9 Creatinine 0.6 L Est GFR ( Amer) > 60 Est GFR (Non-Af Amer) > 60 POC Glucose (mg/dL) Random Glucose 105 Lactic Acid Calcium 8.6 Phosphorus Magnesium Iron TIBC % Saturation Transferrin Ferritin Total Bilirubin 0.6 AST 49 H ALT 38 Alkaline Phosphatase 57 Total Creatine Kinase CK-MB (Mass) Troponin I NT-Pro-B Natriuret Pep 168 Total Protein 7.8 Albumin 3.1 L Globulin 4.7 H Albumin/Globulin Ratio 0.6 L TSH 3rd Generation Urine Color Urine Clarity Urine pH Ur Specific [place] Urine Protein Urine Glucose (UA) Urine Ketones Urine Blood Urine Nitrate Urine Bilirubin Urine Urobilinogen Ur Leukocyte Esterase Urine WBC (Auto) Urine RBC (Auto) Ur Squamous Epith Cells Urine Bacteria Hyaline Casts Granular Casts (Auto) 03/05/18 03/05/18 03/05/18 07:25 12:19 16:50 WBC RBC Hgb Hct MCV MCH MCHC RDW Plt Count MPV Neut % (Auto) Lymph % (Auto) Orange % (Auto) Eos % (Auto) Baso % (Auto) Neut # (Auto) Lymph # (Auto) Orange # (Auto) Eos # (Auto) Baso # (Auto) Retic Count APTT Sodium Potassium Chloride Carbon Dioxide Anion Gap BUN Creatinine Est GFR ( Amer) Est GFR (Non-Af Amer) POC Glucose (mg/dL) 99 99 97 Random Glucose Lactic Acid Calcium Phosphorus Magnesium Iron TIBC % Saturation Transferrin Ferritin Total Bilirubin AST ALT Alkaline Phosphatase Total Creatine Kinase CK-MB (Mass) Troponin I NT-Pro-B Natriuret Pep Total Protein Albumin Globulin Albumin/Globulin Ratio TSH 3rd Generation Urine Color Urine Clarity Urine pH Ur Specific [place] Urine Protein Urine Glucose (UA) Urine Ketones Urine Blood Urine Nitrate Urine Bilirubin Urine Urobilinogen Ur Leukocyte Esterase Urine WBC (Auto) Urine RBC (Auto) Ur Squamous Epith Cells Urine Bacteria Hyaline Casts Granular Casts (Auto) 03/05/18 03/05/18 03/05/18 18:58 21:22 23:37 WBC 9.9 RBC 4.40 Hgb 8.8 L Hct 28.5 L MCV 64.8 L MCH 20.1 L MCHC 31.0 L RDW 20.1 H Plt Count 179 MPV 8.2 Neut % (Auto) 65.9 Lymph % (Auto) 24.6 [place] % (Auto) 6.8 Eos % (Auto) 2.3 Baso % (Auto) 0.4 Neut # (Auto) 6.5 Lymph # (Auto) 2.4 [place] # (Auto) 0.7 Eos # (Auto) 0.2 Baso # (Auto) 0.0 Retic Count APTT Sodium Potassium Chloride Carbon Dioxide Anion Gap BUN Creatinine Est GFR ( Amer) Est GFR (Non-Af Amer) POC Glucose (mg/dL) 102 Random Glucose Lactic Acid Calcium Phosphorus Magnesium Iron TIBC % Saturation Transferrin Ferritin Total Bilirubin AST ALT Alkaline Phosphatase Total Creatine Kinase 225 H CK-MB (Mass) 6.41 H Troponin I 0.0140 NT-Pro-B Natriuret Pep Total Protein Albumin Globulin Albumin/Globulin Ratio TSH 3rd Generation Urine Color Urine Clarity Urine pH Ur Specific [place] Urine Protein Urine Glucose (UA) Urine Ketones Urine Blood Urine Nitrate Urine Bilirubin Urine Urobilinogen Ur Leukocyte Esterase Urine WBC (Auto) Urine RBC (Auto) Ur Squamous Epith Cells Urine Bacteria Hyaline Casts Granular Casts (Auto) 03/06/18 03/06/18 03/06/18 01:50 01:50 01:50 WBC 9.4 RBC 4.27 Hgb 8.6 L Hct 27.8 L MCV 65.2 L MCH 20.2 L MCHC 31.0 L RDW 20.1 H Plt Count 174 MPV 8.2 Neut % (Auto) 63.2 Lymph % (Auto) 26.8 [place] % (Auto) 6.7 Eos % (Auto) 2.5 Baso % (Auto) 0.8 Neut # (Auto) 5.9 Lymph # (Auto) 2.5 [place] # (Auto) 0.6 Eos # (Auto) 0.2 Baso # (Auto) 0.1 Retic Count 1.0 APTT Sodium Potassium Chloride Carbon Dioxide Anion Gap BUN Creatinine Est GFR ( Amer) Est GFR (Non-Af Amer) POC Glucose (mg/dL) Random Glucose Lactic Acid Calcium Phosphorus Magnesium Iron 18 L 16 L TIBC 232 L % Saturation 8 L 7 L Transferrin Ferritin Total Bilirubin AST ALT Alkaline Phosphatase Total Creatine Kinase CK-MB (Mass) Troponin I NT-Pro-B Natriuret Pep Total Protein Albumin Globulin Albumin/Globulin Ratio TSH 3rd Generation Urine Color Urine Clarity Urine pH Ur Specific [place] Urine Protein Urine Glucose (UA) Urine Ketones Urine Blood Urine Nitrate Urine Bilirubin Urine Urobilinogen Ur Leukocyte Esterase Urine WBC (Auto) Urine RBC (Auto) Ur Squamous Epith Cells Urine Bacteria Hyaline Casts Granular Casts (Auto) 03/06/18 03/06/18 03/06/18 01:50 01:50 01:50 WBC RBC Hgb Hct MCV MCH MCHC RDW Plt Count MPV Neut % (Auto) Lymph % (Auto) [place] % (Auto) Eos % (Auto) Baso % (Auto) Neut # (Auto) Lymph # (Auto) [place] # (Auto) Eos # (Auto) Baso # (Auto) Retic Count APTT 55 H D Sodium 139 Potassium 4.1 Chloride 99 Carbon Dioxide 34 H Anion Gap 9 L BUN 9 Creatinine 0.6 L Est GFR ( Amer) > 60 Est GFR (Non-Af Amer) > 60 POC Glucose (mg/dL) Random Glucose 108 H Lactic Acid Calcium 8.6 Phosphorus 4.1 Magnesium 1.7 Iron TIBC % Saturation Transferrin 146.32 L Ferritin 28.9 Total Bilirubin 0.5 AST 50 H ALT 43 Alkaline Phosphatase 64 Total Creatine Kinase 242 H CK-MB (Mass) 6.71 H Troponin I 0.0210 NT-Pro-B Natriuret Pep Total Protein 7.7 Albumin 3.0 L Globulin 4.7 H Albumin/Globulin Ratio 0.6 L TSH 3rd Generation Urine Color Urine Clarity Urine pH Ur Specific [place] Urine Protein Urine Glucose (UA) Urine Ketones Urine Blood Urine Nitrate Urine Bilirubin Urine Urobilinogen Ur Leukocyte Esterase Urine WBC (Auto) Urine RBC (Auto) Ur Squamous Epith Cells Urine Bacteria Hyaline Casts Granular Casts (Auto) 03/06/18 03/06/18 03/06/18 01:50 02:43 02:43 WBC RBC Hgb Hct MCV MCH MCHC RDW Plt Count MPV Neut % (Auto) Lymph % (Auto) [place] % (Auto) Eos % (Auto) Baso % (Auto) Neut # (Auto) Lymph # (Auto) [place] # (Auto) Eos # (Auto) Baso # (Auto) Retic Count APTT Sodium Potassium Chloride Carbon Dioxide Anion Gap BUN Creatinine Est GFR ( Amer) Est GFR (Non-Af Amer) POC Glucose (mg/dL) Random Glucose Lactic Acid 0.6 L Calcium Phosphorus Magnesium Iron TIBC % Saturation Transferrin Ferritin Total Bilirubin AST ALT Alkaline Phosphatase Total Creatine Kinase CK-MB (Mass) Troponin I NT-Pro-B Natriuret Pep Total Protein Albumin Globulin Albumin/Globulin Ratio TSH 3rd Generation 2.61 Urine Color [place] Urine Clarity Hazy Urine pH 5.0 Ur Specific [place] 1.020 Urine Protein 1+ H Urine Glucose (UA) Normal Urine Ketones Negative Urine Blood 2+ H Urine Nitrate Negative Urine Bilirubin Negative Urine Urobilinogen Normal Ur Leukocyte Esterase Trace Urine WBC (Auto) 8 H Urine RBC (Auto) 17 H Ur Squamous Epith Cells 5 Urine Bacteria Few H Hyaline Casts 6-10 H Granular Casts (Auto) 5 EKG/Cardiology Studies: Cardiology / EKG Studies 03/05/18 23:30 ELECTROCARDIOGRAM Stat Comment: Mode Of Transportation: Reason For Exam: Chest pAIN 03/06/18 00:46 EKG [ELECTROCARDIOGRAM] Stat Comment: Mode Of Transportation: Reason For Exam: Chest pain Fingerstick Blood Sugar Results: 102 Critical Care Progress Note - Nutrition Nutrition: Nutrition Category Date Time Status Heart Healthy Diet [DIET] Diets 03/03/18 Breakfast Active Assessment/Plan - Assessment and Plan (Free Text) Assessment: 23 yo AA F with PMHx of obesity and Htn, and newly dx mild pulm HTN per echo admitted for empiric PE tx requiring heparin drip, and PNA/effusion, readmitted to ICU after episodes of chest pain accompanied by SVT and A fib with rapid ventric rate requiring cardizem drip A fib w/ rapid ventricular rate -verapamil 240 mg PO -metoprolol 50mg PO BID -cardio consult Dr. Dustin RINALDI, trop x2 neg HTN -controlled -phenylephrine drip for isolated hypotensive event 03/06 Elevated D-dimer, suspected PE -continue heparin drip -monitor PTT in therapeutic range 45-95 PNA/Effusion -ceftriaxone 1g -azithromycin 500mg -lasix 20mg -CXR Anemia -Hgb stable, 8.6 Obesity -supervisor yard referral -heart healthy diet Ppx -on heparin therapy -protonix 40mg -SCD -OOB <Tim Bellamy - Last Filed: 03/06/18 15:28> CCU Objective - Vital Signs / Intake & Output Intake and Output (Last 8hrs): Intake & Output 03/06/18 03/06/18 03/06/18 06:59 14:59 22:59 Intake Total 860.5 31.5 Output Total 510 50 Balance 350.5 -18.5 Intake: IV 250 0 Intake, IV Amount 260.5 31.5 Left PICC 24 10 Left Upper arm 129 R hand 107.5 21.5 Oral 350 0 Output: Urine 510 50 Urethral (Willis) 210 50 Urine, Voided 300 Other: # Voids Urine, Voided 1 # Bowel Movements 0 0 - Medications Active Medications: Active Medications Generic Name Dose Route Start Last Admin Trade Name Freq PRN Reason Stop Dose Admin Acetaminophen 650 mg 03/05/18 18:06 Tylenol 325mg Tab PO Q6 PRN Pain, Mild (1-3) Albuterol/Ipratropium 3 ml 03/06/18 00:59 Duoneb 3 Mg/0.5 Mg (3 Ml) Ud INH RQ6 PRN Shortness of Breath Budesonide 0.5 mg 02/28/18 21:45 03/06/18 08:34 Pulmicort Respules INH 0.5 mg RQ12 ZURDO Administration Furosemide 20 mg 03/03/18 10:00 03/06/18 09:58 Lasix PO Not Given DAILY ZURDO Heparin Sodium/Sodium Chloride 25,000 units in 250 mls @ 17.236 mls/hr 20:53 03/06/18 02:55 Heparin 40572 Units/250ml 1/2 Normal Saline IV 10 units/kg/hr .[id number] PRN 21.546 mls/hr ADJUST RATE PER PROTOCOL Administration Protocol 8 UNITS/KG/HR Lidocaine 1 ea 03/06/18 10:00 03/06/18 12:17 Lidoderm TD 1 ea DAILY ZURDO Administration Lidocaine 1 ea 03/06/18 12:30 Lidoderm TD DAILY ZURDO Methylprednisolone 40 mg 03/06/18 11:00 03/06/18 12:17 Solu-Medrol IV 40 mg Q12H ZURDO Administration Pantoprazole Sodium 40 mg 03/03/18 10:00 03/06/18 12:17 Protonix Ec Tab PO 40 mg DAILY ZURDO Administration Tiotropium [place] 18 mcg 03/01/18 08:00 03/06/18 08:34 Spiriva INH 18 mcg RQ24 ZURDO Administration Tobramycin/Dexamethasone 0 ml 03/02/18 10:00 03/05/18 22:02 Tobradex Opht Susp OD 2 drop QID ZURDO Administration Verapamil HCl 240 mg 03/06/18 09:00 Calan Sr Tab PO ONCE ZURDO Verapamil HCl 240 mg 03/07/18 10:00 Calan Sr Tab PO DAILY ZURDO Warfarin Sodium 5 mg 03/06/18 18:00 Coumadin PO 03/06/18 18:01 1800 ZURDO - Patient Studies Lab Studies: Lab Studies 03/06/18 03/06/18 03/06/18 Range/Units 11:43 09:04 07:13 WBC (4.8-10.8) K/uL RBC (3.80-5.20) Mil/uL Hgb (11.0-16.0) g/dL Hct (34.0-47.0) % MCV (81.0-99.0) fL MCH (27.0-31.0) pg MCHC (33.0-37.0) g/dL RDW (11.5-14.5) % Plt Count (130-400) K/uL MPV (7.2-11.7) fL Neut % (Auto) (50.0-75.0) % Lymph % (Auto) (20.0-40.0) % Orange % (Auto) (0.0-10.0) % Eos % (Auto) (0.0-4.0) % Baso % (Auto) (0.0-2.0) % Neut # (Auto) (1.8-7.0) K/uL Lymph # (Auto) (1.0-4.3) K/uL Orange # (Auto) (0.0-0.8) K/uL Eos # (Auto) (0.0-0.7) K/uL Baso # (Auto) (0.0-0.2) K/uL Retic Count (0.5-1.5) % PT 13.2 H (9.7-12.2) SECONDS INR 1.2 APTT (21-34) SECONDS Sodium (132-148) mmol/L Potassium (3.6-5.2) mmol/L Chloride (98-107) mmol/L Carbon Dioxide (22-30) mmol/L Anion Gap (10-20) BUN (7-17) mg/dL Creatinine (0.7-1.2) mg/dL Est GFR ( Amer) Est GFR (Non-Af Amer) POC Glucose (mg/dL) 95 92 (65-110) mg/dL Random Glucose (65-105) mg/dL Lactic Acid (0.7-2.1) mmol/L Calcium (8.6-10.4) mg/dl Phosphorus (2.5-4.5) mg/dL Magnesium (1.6-2.3) mg/dL Iron (37-170) ug/dL TIBC (250-450) ug/dL % Saturation (20-55) Transferrin (206-381) mg/dL Ferritin ng/mL Total Bilirubin (0.2-1.3) mg/dL AST (14-36) U/L ALT (9-52) U/L Alkaline Phosphatase (38-126) U/L Total Creatine Kinase (30-135) U/L CK-MB (Mass) (0.0-3.38) ng/mL Troponin I (0.00-0.120) ng/mL Total Protein (6.3-8.3) g/dL Albumin (3.5-5.0) g/dL Globulin (2.2-3.9) gm/dL Albumin/Globulin Ratio (1.0-2.1) TSH 3rd Generation (0.46-4.68) mIU/L Urine Color (YELLOW) Urine Clarity (Clear) Urine pH (5.0-8.0) Ur Specific [place] (1.003-1.030) Urine Protein (NEGATIVE) mg/dL Urine Glucose (UA) (Normal) mg/dL Urine Ketones (NEGATIVE) mg/dL Urine Blood (NEGATIVE) Urine Nitrate (NEGATIVE) Urine Bilirubin (NEGATIVE) Urine Urobilinogen (0.2-1.0) mg/dL Ur Leukocyte Esterase (Negative) Quentin/uL Urine WBC (Auto) (0-5) /hpf Urine RBC (Auto) (0-3) /hpf Ur Squamous Epith Cells (0-5) /hpf Urine Bacteria (<OCC) Hyaline Casts (0-2) /lpf Granular Casts (Auto) (0-1) /lpf 03/06/18 03/06/18 03/06/18 Range/Units 02:43 02:43 01:50 WBC (4.8-10.8) K/uL RBC (3.80-5.20) Mil/uL Hgb (11.0-16.0) g/dL Hct (34.0-47.0) % MCV (81.0-99.0) fL MCH (27.0-31.0) pg MCHC (33.0-37.0) g/dL RDW (11.5-14.5) % Plt Count (130-400) K/uL MPV (7.2-11.7) fL Neut % (Auto) (50.0-75.0) % Lymph % (Auto) (20.0-40.0) % Orange % (Auto) (0.0-10.0) % Eos % (Auto) (0.0-4.0) % Baso % (Auto) (0.0-2.0) % Neut # (Auto) (1.8-7.0) K/uL Lymph # (Auto) (1.0-4.3) K/uL Orange # (Auto) (0.0-0.8) K/uL Eos # (Auto) (0.0-0.7) K/uL Baso # (Auto) (0.0-0.2) K/uL Retic Count (0.5-1.5) % PT (9.7-12.2) SECONDS INR APTT (21-34) SECONDS Sodium (132-148) mmol/L Potassium (3.6-5.2) mmol/L Chloride (98-107) mmol/L Carbon Dioxide (22-30) mmol/L Anion Gap (10-20) BUN (7-17) mg/dL Creatinine (0.7-1.2) mg/dL Est GFR ( Amer) Est GFR (Non-Af Amer) POC Glucose (mg/dL) (65-110) mg/dL Random Glucose (65-105) mg/dL Lactic Acid 0.6 L (0.7-2.1) mmol/L Calcium (8.6-10.4) mg/dl Phosphorus (2.5-4.5) mg/dL Magnesium (1.6-2.3) mg/dL Iron (37-170) ug/dL TIBC (250-450) ug/dL % Saturation (20-55) Transferrin (206-381) mg/dL Ferritin ng/mL Total Bilirubin (0.2-1.3) mg/dL AST (14-36) U/L ALT (9-52) U/L Alkaline Phosphatase (38-126) U/L Total Creatine Kinase (30-135) U/L CK-MB (Mass) (0.0-3.38) ng/mL Troponin I (0.00-0.120) ng/mL Total Protein (6.3-8.3) g/dL Albumin (3.5-5.0) g/dL Globulin (2.2-3.9) gm/dL Albumin/Globulin Ratio (1.0-2.1) TSH 3rd Generation 2.61 (0.46-4.68) mIU/L Urine Color [place] (YELLOW) Urine Clarity Hazy (Clear) Urine pH 5.0 (5.0-8.0) Ur Specific [place] 1.020 (1.003-1.030) Urine Protein 1+ H (NEGATIVE) mg/dL Urine Glucose (UA) Normal (Normal) mg/dL Urine Ketones Negative (NEGATIVE) mg/dL Urine Blood 2+ H (NEGATIVE) Urine Nitrate Negative (NEGATIVE) Urine Bilirubin Negative (NEGATIVE) Urine Urobilinogen Normal (0.2-1.0) mg/dL Ur Leukocyte Esterase Trace (Negative) Quentin/uL Urine WBC (Auto) 8 H (0-5) /hpf Urine RBC (Auto) 17 H (0-3) /hpf Ur Squamous Epith Cells 5 (0-5) /hpf Urine Bacteria Few H (<OCC) Hyaline Casts 6-10 H (0-2) /lpf Granular Casts (Auto) 5 (0-1) /lpf 03/06/18 03/06/18 03/06/18 Range/Units 01:50 01:50 01:50 WBC (4.8-10.8) K/uL RBC (3.80-5.20) Mil/uL Hgb (11.0-16.0) g/dL Hct (34.0-47.0) % MCV (81.0-99.0) fL MCH (27.0-31.0) pg MCHC (33.0-37.0) g/dL RDW (11.5-14.5) % Plt Count (130-400) K/uL MPV (7.2-11.7) fL Neut % (Auto) (50.0-75.0) % Lymph % (Auto) (20.0-40.0) % Orange % (Auto) (0.0-10.0) % Eos % (Auto) (0.0-4.0) % Baso % (Auto) (0.0-2.0) % Neut # (Auto) (1.8-7.0) K/uL Lymph # (Auto) (1.0-4.3) K/uL Orange # (Auto) (0.0-0.8) K/uL Eos # (Auto) (0.0-0.7) K/uL Baso # (Auto) (0.0-0.2) K/uL Retic Count (0.5-1.5) % PT (9.7-12.2) SECONDS INR APTT 55 H D (21-34) SECONDS Sodium 139 (132-148) mmol/L Potassium 4.1 (3.6-5.2) mmol/L Chloride 99 (98-107) mmol/L Carbon Dioxide 34 H (22-30) mmol/L Anion Gap 9 L (10-20) BUN 9 (7-17) mg/dL Creatinine 0.6 L (0.7-1.2) mg/dL Est GFR ( Amer) > 60 Est GFR (Non-Af Amer) > 60 POC Glucose (mg/dL) (65-110) mg/dL Random Glucose 108 H (65-105) mg/dL Lactic Acid (0.7-2.1) mmol/L Calcium 8.6 (8.6-10.4) mg/dl Phosphorus 4.1 (2.5-4.5) mg/dL Magnesium 1.7 (1.6-2.3) mg/dL Iron (37-170) ug/dL TIBC (250-450) ug/dL % Saturation (20-55) Transferrin 146.32 L (206-381) mg/dL Ferritin 28.9 ng/mL Total Bilirubin 0.5 (0.2-1.3) mg/dL AST 50 H (14-36) U/L ALT 43 (9-52) U/L Alkaline Phosphatase 64 (38-126) U/L Total Creatine Kinase 242 H (30-135) U/L CK-MB (Mass) 6.71 H (0.0-3.38) ng/mL Troponin I 0.0210 (0.00-0.120) ng/mL Total Protein 7.7 (6.3-8.3) g/dL Albumin 3.0 L (3.5-5.0) g/dL Globulin 4.7 H (2.2-3.9) gm/dL Albumin/Globulin Ratio 0.6 L (1.0-2.1) TSH 3rd Generation (0.46-4.68) mIU/L Urine Color (YELLOW) Urine Clarity (Clear) Urine pH (5.0-8.0) Ur Specific [place] (1.003-1.030) Urine Protein (NEGATIVE) mg/dL Urine Glucose (UA) (Normal) mg/dL Urine Ketones (NEGATIVE) mg/dL Urine Blood (NEGATIVE) Urine Nitrate (NEGATIVE) Urine Bilirubin (NEGATIVE) Urine Urobilinogen (0.2-1.0) mg/dL Ur Leukocyte Esterase (Negative) Quentin/uL Urine WBC (Auto) (0-5) /hpf Urine RBC (Auto) (0-3) /hpf Ur Squamous Epith Cells (0-5) /hpf Urine Bacteria (<OCC) Hyaline Casts (0-2) /lpf Granular Casts (Auto) (0-1) /lpf 03/06/18 03/06/18 03/06/18 Range/Units 01:50 01:50 01:50 WBC 9.4 (4.8-10.8) K/uL RBC 4.27 (3.80-5.20) Mil/uL Hgb 8.6 L (11.0-16.0) g/dL Hct 27.8 L (34.0-47.0) % MCV 65.2 L (81.0-99.0) fL MCH 20.2 L (27.0-31.0) pg MCHC 31.0 L (33.0-37.0) g/dL RDW 20.1 H (11.5-14.5) % Plt Count 174 (130-400) K/uL MPV 8.2 (7.2-11.7) fL Neut % (Auto) 63.2 (50.0-75.0) % Lymph % (Auto) 26.8 (20.0-40.0) % Orange % (Auto) 6.7 (0.0-10.0) % Eos % (Auto) 2.5 (0.0-4.0) % Baso % (Auto) 0.8 (0.0-2.0) % Neut # (Auto) 5.9 (1.8-7.0) K/uL Lymph # (Auto) 2.5 (1.0-4.3) K/uL Orange # (Auto) 0.6 (0.0-0.8) K/uL Eos # (Auto) 0.2 (0.0-0.7) K/uL Baso # (Auto) 0.1 (0.0-0.2) K/uL Retic Count 1.0 (0.5-1.5) % PT (9.7-12.2) SECONDS INR APTT (21-34) SECONDS Sodium (132-148) mmol/L Potassium (3.6-5.2) mmol/L Chloride (98-107) mmol/L Carbon Dioxide (22-30) mmol/L Anion Gap (10-20) BUN (7-17) mg/dL Creatinine (0.7-1.2) mg/dL Est GFR ( Amer) Est GFR (Non-Af Amer) POC Glucose (mg/dL) (65-110) mg/dL Random Glucose (65-105) mg/dL Lactic Acid (0.7-2.1) mmol/L Calcium (8.6-10.4) mg/dl Phosphorus (2.5-4.5) mg/dL Magnesium (1.6-2.3) mg/dL Iron 16 L 18 L (37-170) ug/dL TIBC 232 L (250-450) ug/dL % Saturation 7 L 8 L (20-55) Transferrin (206-381) mg/dL Ferritin ng/mL Total Bilirubin (0.2-1.3) mg/dL AST (14-36) U/L ALT (9-52) U/L Alkaline Phosphatase (38-126) U/L Total Creatine Kinase (30-135) U/L CK-MB (Mass) (0.0-3.38) ng/mL Troponin I (0.00-0.120) ng/mL Total Protein (6.3-8.3) g/dL Albumin (3.5-5.0) g/dL Globulin (2.2-3.9) gm/dL Albumin/Globulin Ratio (1.0-2.1) TSH 3rd Generation (0.46-4.68) mIU/L Urine Color (YELLOW) Urine Clarity (Clear) Urine pH (5.0-8.0) Ur Specific [place] (1.003-1.030) Urine Protein (NEGATIVE) mg/dL Urine Glucose (UA) (Normal) mg/dL Urine Ketones (NEGATIVE) mg/dL Urine Blood (NEGATIVE) Urine Nitrate (NEGATIVE) Urine Bilirubin (NEGATIVE) Urine Urobilinogen (0.2-1.0) mg/dL Ur Leukocyte Esterase (Negative) Quentin/uL Urine WBC (Auto) (0-5) /hpf Urine RBC (Auto) (0-3) /hpf Ur Squamous Epith Cells (0-5) /hpf Urine Bacteria (<OCC) Hyaline Casts (0-2) /lpf Granular Casts (Auto) (0-1) /lpf 03/05/18 03/05/18 03/05/18 Range/Units 23:37 21:22 18:58 WBC 9.9 (4.8-10.8) K/uL RBC 4.40 (3.80-5.20) Mil/uL Hgb 8.8 L (11.0-16.0) g/dL Hct 28.5 L (34.0-47.0) % MCV 64.8 L (81.0-99.0) fL MCH 20.1 L (27.0-31.0) pg MCHC 31.0 L (33.0-37.0) g/dL RDW 20.1 H (11.5-14.5) % Plt Count 179 (130-400) K/uL MPV 8.2 (7.2-11.7) fL Neut % (Auto) 65.9 (50.0-75.0) % Lymph % (Auto) 24.6 (20.0-40.0) % Orange % (Auto) 6.8 (0.0-10.0) % Eos % (Auto) 2.3 (0.0-4.0) % Baso % (Auto) 0.4 (0.0-2.0) % Neut # (Auto) 6.5 (1.8-7.0) K/uL Lymph # (Auto) 2.4 (1.0-4.3) K/uL [place] # (Auto) 0.7 (0.0-0.8) K/uL Eos # (Auto) 0.2 (0.0-0.7) K/uL Baso # (Auto) 0.0 (0.0-0.2) K/uL Retic Count (0.5-1.5) % PT (9.7-12.2) SECONDS INR APTT (21-34) SECONDS Sodium (132-148) mmol/L Potassium (3.6-5.2) mmol/L Chloride (98-107) mmol/L Carbon Dioxide (22-30) mmol/L Anion Gap (10-20) BUN (7-17) mg/dL Creatinine (0.7-1.2) mg/dL Est GFR ( Amer) Est GFR (Non-Af Amer) POC Glucose (mg/dL) 102 (65-110) mg/dL Random Glucose (65-105) mg/dL Lactic Acid (0.7-2.1) mmol/L Calcium (8.6-10.4) mg/dl Phosphorus (2.5-4.5) mg/dL Magnesium (1.6-2.3) mg/dL Iron (37-170) ug/dL TIBC (250-450) ug/dL % Saturation (20-55) Transferrin (206-381) mg/dL Ferritin ng/mL Total Bilirubin (0.2-1.3) mg/dL AST (14-36) U/L ALT (9-52) U/L Alkaline Phosphatase (38-126) U/L Total Creatine Kinase 225 H (30-135) U/L CK-MB (Mass) 6.41 H (0.0-3.38) ng/mL Troponin I 0.0140 (0.00-0.120) ng/mL Total Protein (6.3-8.3) g/dL Albumin (3.5-5.0) g/dL Globulin (2.2-3.9) gm/dL Albumin/Globulin Ratio (1.0-2.1) TSH 3rd Generation (0.46-4.68) mIU/L Urine Color (YELLOW) Urine Clarity (Clear) Urine pH (5.0-8.0) Ur Specific [place] (1.003-1.030) Urine Protein (NEGATIVE) mg/dL Urine Glucose (UA) (Normal) mg/dL Urine Ketones (NEGATIVE) mg/dL Urine Blood (NEGATIVE) Urine Nitrate (NEGATIVE) Urine Bilirubin (NEGATIVE) Urine Urobilinogen (0.2-1.0) mg/dL Ur Leukocyte Esterase (Negative) Quentin/uL Urine WBC (Auto) (0-5) /hpf Urine RBC (Auto) (0-3) /hpf Ur Squamous Epith Cells (0-5) /hpf Urine Bacteria (<OCC) Hyaline Casts (0-2) /lpf Granular Casts (Auto) (0-1) /lpf 03/05/18 Range/Units 16:50 WBC (4.8-10.8) K/uL RBC (3.80-5.20) Mil/uL Hgb (11.0-16.0) g/dL Hct (34.0-47.0) % MCV (81.0-99.0) fL MCH (27.0-31.0) pg MCHC (33.0-37.0) g/dL RDW (11.5-14.5) % Plt Count (130-400) K/uL MPV (7.2-11.7) fL Neut % (Auto) (50.0-75.0) % Lymph % (Auto) (20.0-40.0) % [place] % (Auto) (0.0-10.0) % Eos % (Auto) (0.0-4.0) % Baso % (Auto) (0.0-2.0) % Neut # (Auto) (1.8-7.0) K/uL Lymph # (Auto) (1.0-4.3) K/uL [place] # (Auto) (0.0-0.8) K/uL Eos # (Auto) (0.0-0.7) K/uL Baso # (Auto) (0.0-0.2) K/uL Retic Count (0.5-1.5) % PT (9.7-12.2) SECONDS INR APTT (21-34) SECONDS Sodium (132-148) mmol/L Potassium (3.6-5.2) mmol/L Chloride (98-107) mmol/L Carbon Dioxide (22-30) mmol/L Anion Gap (10-20) BUN (7-17) mg/dL Creatinine (0.7-1.2) mg/dL Est GFR ( Amer) Est GFR (Non-Af Amer) POC Glucose (mg/dL) 97 (65-110) mg/dL Random Glucose (65-105) mg/dL Lactic Acid (0.7-2.1) mmol/L Calcium (8.6-10.4) mg/dl Phosphorus (2.5-4.5) mg/dL Magnesium (1.6-2.3) mg/dL Iron (37-170) ug/dL TIBC (250-450) ug/dL % Saturation (20-55) Transferrin (206-381) mg/dL Ferritin ng/mL Total Bilirubin (0.2-1.3) mg/dL AST (14-36) U/L ALT (9-52) U/L Alkaline Phosphatase (38-126) U/L Total Creatine Kinase (30-135) U/L CK-MB (Mass) (0.0-3.38) ng/mL Troponin I (0.00-0.120) ng/mL Total Protein (6.3-8.3) g/dL Albumin (3.5-5.0) g/dL Globulin (2.2-3.9) gm/dL Albumin/Globulin Ratio (1.0-2.1) TSH 3rd Generation (0.46-4.68) mIU/L Urine Color (YELLOW) Urine Clarity (Clear) Urine pH (5.0-8.0) Ur Specific [place] (1.003-1.030) Urine Protein (NEGATIVE) mg/dL Urine Glucose (UA) (Normal) mg/dL Urine Ketones (NEGATIVE) mg/dL Urine Blood (NEGATIVE) Urine Nitrate (NEGATIVE) Urine Bilirubin (NEGATIVE) Urine Urobilinogen (0.2-1.0) mg/dL Ur Leukocyte Esterase (Negative) Quentin/uL Urine WBC (Auto) (0-5) /hpf Urine RBC (Auto) (0-3) /hpf Ur Squamous Epith Cells (0-5) /hpf Urine Bacteria (<OCC) Hyaline Casts (0-2) /lpf Granular Casts (Auto) (0-1) /lpf Laboratory Results - last 24 hr 03/05/18 03/05/18 03/05/18 16:50 18:58 21:22 WBC 9.9 RBC 4.40 Hgb 8.8 L Hct 28.5 L MCV 64.8 L MCH 20.1 L MCHC 31.0 L RDW 20.1 H Plt Count 179 MPV 8.2 Neut % (Auto) 65.9 Lymph % (Auto) 24.6 [place] % (Auto) 6.8 Eos % (Auto) 2.3 Baso % (Auto) 0.4 Neut # (Auto) 6.5 Lymph # (Auto) 2.4 [place] # (Auto) 0.7 Eos # (Auto) 0.2 Baso # (Auto) 0.0 Retic Count PT INR APTT Sodium Potassium Chloride Carbon Dioxide Anion Gap BUN Creatinine Est GFR ( Amer) Est GFR (Non-Af Amer) POC Glucose (mg/dL) 97 102 Random Glucose Lactic Acid Calcium Phosphorus Magnesium Iron TIBC % Saturation Transferrin Ferritin Total Bilirubin AST ALT Alkaline Phosphatase Total Creatine Kinase CK-MB (Mass) Troponin I Total Protein Albumin Globulin Albumin/Globulin Ratio TSH 3rd Generation Urine Color Urine Clarity Urine pH Ur Specific [place] Urine Protein Urine Glucose (UA) Urine Ketones Urine Blood Urine Nitrate Urine Bilirubin Urine Urobilinogen Ur Leukocyte Esterase Urine WBC (Auto) Urine RBC (Auto) Ur Squamous Epith Cells Urine Bacteria Hyaline Casts Granular Casts (Auto) 03/05/18 03/06/18 03/06/18 23:37 01:50 01:50 WBC RBC Hgb Hct MCV MCH MCHC RDW Plt Count MPV Neut % (Auto) Lymph % (Auto) Orange % (Auto) Eos % (Auto) Baso % (Auto) Neut # (Auto) Lymph # (Auto) [place] # (Auto) Eos # (Auto) Baso # (Auto) Retic Count PT INR APTT Sodium Potassium Chloride Carbon Dioxide Anion Gap BUN Creatinine Est GFR ( Amer) Est GFR (Non-Af Amer) POC Glucose (mg/dL) Random Glucose Lactic Acid Calcium Phosphorus Magnesium Iron 18 L 16 L TIBC 232 L % Saturation 8 L 7 L Transferrin Ferritin Total Bilirubin AST ALT Alkaline Phosphatase Total Creatine Kinase 225 H CK-MB (Mass) 6.41 H Troponin I 0.0140 Total Protein Albumin Globulin Albumin/Globulin Ratio TSH 3rd Generation Urine Color Urine Clarity Urine pH Ur Specific [place] Urine Protein Urine Glucose (UA) Urine Ketones Urine Blood Urine Nitrate Urine Bilirubin Urine Urobilinogen Ur Leukocyte Esterase Urine WBC (Auto) Urine RBC (Auto) Ur Squamous Epith Cells Urine Bacteria Hyaline Casts Granular Casts (Auto) 03/06/18 03/06/18 03/06/18 01:50 01:50 01:50 WBC 9.4 RBC 4.27 Hgb 8.6 L Hct 27.8 L MCV 65.2 L MCH 20.2 L MCHC 31.0 L RDW 20.1 H Plt Count 174 MPV 8.2 Neut % (Auto) 63.2 Lymph % (Auto) 26.8 [place] % (Auto) 6.7 Eos % (Auto) 2.5 Baso % (Auto) 0.8 Neut # (Auto) 5.9 Lymph # (Auto) 2.5 [place] # (Auto) 0.6 Eos # (Auto) 0.2 Baso # (Auto) 0.1 Retic Count 1.0 PT INR APTT Sodium 139 Potassium 4.1 Chloride 99 Carbon Dioxide 34 H Anion Gap 9 L BUN 9 Creatinine 0.6 L Est GFR ( Amer) > 60 Est GFR (Non-Af Amer) > 60 POC Glucose (mg/dL) Random Glucose 108 H Lactic Acid Calcium 8.6 Phosphorus 4.1 Magnesium 1.7 Iron TIBC % Saturation Transferrin 146.32 L Ferritin 28.9 Total Bilirubin 0.5 AST 50 H ALT 43 Alkaline Phosphatase 64 Total Creatine Kinase 242 H CK-MB (Mass) 6.71 H Troponin I 0.0210 Total Protein 7.7 Albumin 3.0 L Globulin 4.7 H Albumin/Globulin Ratio 0.6 L TSH 3rd Generation Urine Color Urine Clarity Urine pH Ur Specific [place] Urine Protein Urine Glucose (UA) Urine Ketones Urine Blood Urine Nitrate Urine Bilirubin Urine Urobilinogen Ur Leukocyte Esterase Urine WBC (Auto) Urine RBC (Auto) Ur Squamous Epith Cells Urine Bacteria Hyaline Casts Granular Casts (Auto) 03/06/18 03/06/18 03/06/18 01:50 01:50 02:43 WBC RBC Hgb Hct MCV MCH MCHC RDW Plt Count MPV Neut % (Auto) Lymph % (Auto) Orange % (Auto) Eos % (Auto) Baso % (Auto) Neut # (Auto) Lymph # (Auto) [place] # (Auto) Eos # (Auto) Baso # (Auto) Retic Count PT INR APTT 55 H D Sodium Potassium Chloride Carbon Dioxide Anion Gap BUN Creatinine Est GFR ( Amer) Est GFR (Non-Af Amer) POC Glucose (mg/dL) Random Glucose Lactic Acid 0.6 L Calcium Phosphorus Magnesium Iron TIBC % Saturation Transferrin Ferritin Total Bilirubin AST ALT Alkaline Phosphatase Total Creatine Kinase CK-MB (Mass) Troponin I Total Protein Albumin Globulin Albumin/Globulin Ratio TSH 3rd Generation Urine Color [place] Urine Clarity Hazy Urine pH 5.0 Ur Specific [place] 1.020 Urine Protein 1+ H Urine Glucose (UA) Normal Urine Ketones Negative Urine Blood 2+ H Urine Nitrate Negative Urine Bilirubin Negative Urine Urobilinogen Normal Ur Leukocyte Esterase Trace Urine WBC (Auto) 8 H Urine RBC (Auto) 17 H Ur Squamous Epith Cells 5 Urine Bacteria Few H Hyaline Casts 6-10 H Granular Casts (Auto) 5 03/06/18 03/06/18 03/06/18 02:43 07:13 09:04 WBC RBC Hgb Hct MCV MCH MCHC RDW Plt Count MPV Neut % (Auto) Lymph % (Auto) [place] % (Auto) Eos % (Auto) Baso % (Auto) Neut # (Auto) Lymph # (Auto) [place] # (Auto) Eos # (Auto) Baso # (Auto) Retic Count PT 13.2 H INR 1.2 APTT Sodium Potassium Chloride Carbon Dioxide Anion Gap BUN Creatinine Est GFR ( Amer) Est GFR (Non-Af Amer) POC Glucose (mg/dL) 92 Random Glucose Lactic Acid Calcium Phosphorus Magnesium Iron TIBC % Saturation Transferrin Ferritin Total Bilirubin AST ALT Alkaline Phosphatase Total Creatine Kinase CK-MB (Mass) Troponin I Total Protein Albumin Globulin Albumin/Globulin Ratio [facility] 3rd Generation 2.61 Urine Color Urine Clarity Urine pH Ur Specific [place] Urine Protein Urine Glucose (UA) Urine Ketones Urine Blood Urine Nitrate Urine Bilirubin Urine Urobilinogen Ur Leukocyte Esterase Urine WBC (Auto) Urine RBC (Auto) Ur Squamous Epith Cells Urine Bacteria Hyaline Casts Granular Casts (Auto) 03/06/18 11:43 WBC RBC Hgb Hct MCV MCH MCHC RDW Plt Count MPV Neut % (Auto) Lymph % (Auto) [place] % (Auto) Eos % (Auto) Baso % (Auto) Neut # (Auto) Lymph # (Auto) [place] # (Auto) Eos # (Auto) Baso # (Auto) Retic Count PT INR APTT Sodium Potassium Chloride Carbon Dioxide Anion Gap BUN Creatinine Est GFR ( Amer) Est GFR (Non-Af Amer) POC Glucose (mg/dL) 95 Random Glucose Lactic Acid Calcium Phosphorus Magnesium Iron TIBC % Saturation Transferrin Ferritin Total Bilirubin AST ALT Alkaline Phosphatase Total Creatine Kinase CK-MB (Mass) Troponin I Total Protein Albumin Globulin Albumin/Globulin Ratio TSH 3rd Generation Urine Color Urine Clarity Urine pH Ur Specific [place] Urine Protein Urine Glucose (UA) Urine Ketones Urine Blood Urine Nitrate Urine Bilirubin Urine Urobilinogen Ur Leukocyte Esterase Urine WBC (Auto) Urine RBC (Auto) Ur Squamous Epith Cells Urine Bacteria Hyaline Casts Granular Casts (Auto) EKG/Cardiology Studies: Cardiology / EKG Studies 03/05/18 23:30 ELECTROCARDIOGRAM Stat Comment: Mode Of Transportation: Reason For Exam: Chest pAIN 03/06/18 00:46 EKG [ELECTROCARDIOGRAM] Stat Comment: Mode Of Transportation: Reason For Exam: Chest pain Critical Care Progress Note - Nutrition Nutrition: Nutrition Category Date Time Status Heart Healthy Diet [DIET] Diets 03/03/18 Breakfast Active Assessment/Plan - Assessment and Plan (Free Text) Assessment: Above patient seen and examined bedside. Patient had Paroxsysnmal A-fib overnigt. Patient's HR improved and controlled with oral varapamil. -A-fib: rate controlled, off cardizem ggt, AC with IV heparin (d.w Dr. Conroy , who would like to confirm PE before making deicsion about changing from IV to oral anticoagulation.) -Obesity Hypoventilation syndrome: continue bi-pap at night, encouraged weight loss -Hypoxia: will benefit from NC to keep Spo2 >92 (2 liter NC) -d/c willis -continue to monitor patient Patient remains hemodynamically stable. [place] - Date & Time Date: 03/06/18 Time: 15:28
[2018-03-06] MEDS: Budesonide 0.5 mg/2 ml Inhal Susp UD INH SCH ×2 (08:34→19:53)
[2018-03-06] MEDS: Tiotropium 18 mcg Cap For Inhalation INH SCH (08:34)
[2018-03-06] MEDS ORDERED: Verapamil 240 mg ER Tab PO SCH (09:00)
[2018-03-06 09:16] LABS: INR 1.2; PROTHROMBIN TIME 13.2 SECONDS (9.7-12.2)
[2018-03-06] MEDS ORDERED: methylPREDNISolone 40 MG in Sodium Chloride 0.9% 100 ML IVPB SCH (10:00)
--- NOTE | 2018-03-06 10:03 | RAD ---
Date of service: 03/06/2018 PROCEDURE: CHEST RADIOGRAPH, 1 VIEW HISTORY: chest pain and difficulty breathing COMPARISON: 03/05/2018. FINDINGS: LUNGS: Again seen are low lung volumes. There is persistent haziness in the right lung. There is interval improved aeration in the left lung. PLEURA: No pneumothorax. Small pleural effusions. CARDIOVASCULAR: Persistent severe cardiomegaly. OSSEOUS STRUCTURES: No significant abnormalities. VISUALIZED UPPER ABDOMEN: Normal. OTHER FINDINGS: None. IMPRESSION: Persistent severe cardiomegaly and small pleural effusions. Interval improved aeration in the left lung. Suspect alveolar edema in the right lung.
[2018-03-06] MEDS: Tobramycin/Dexamethasone (Tobradex) Opth Sol (2.5 ml) OD SCH ×4 (10:10→22:30)
--- NOTE | 2018-03-06 11:59 | CARD ---
APPROVED REPORT Date of service: 03/05/2018 EKG Measurement Heart [id number] <Conclusion> Sinus tachycardia Anterior infarct, age undetermined Abnormal ECG
[2018-03-06] MEDS: Lidocaine 5% Patch TD SCH ×2 (12:17→12:36)
[2018-03-06] MEDS: MethylPREDNISolone 40 mg Vial IV SCH ×2 (12:17→22:08)
[2018-03-06] MEDS: Pantoprazole 40 mg EC Tab PO SCH (12:17)
[2018-03-06] MEDS ORDERED: Verapamil 240 mg ER Tab PO ONE (12:26)
[2018-03-06] MEDS ORDERED: Aluminum Hydroxide/Magnesium Hydroxide Susp (30 mL) PO ONE (19:08)
[2018-03-07 06:14] LABS: BASO % 0.2 % (0.0-2.0); HEMOGLOBIN 8.6 g/dL (11.0-16.0); LYMPH # 2.1 K/uL (1.0-4.3); LYMPH % 20.2 % (20.0-40.0); MEAN CELL VOLUME 65.9 fL (81.0-99.0); MEAN CORPUSCULAR HEMOGLOBIN 20.5 pg (27.0-31.0); MEAN CORPUSCULAR HGB CONC 31.1 g/dL (33.0-37.0); MEAN PLATELET VOLUME 8.6 fL (7.2-11.7); MONO # 0.5 K/uL (0.0-0.8); MONO % 4.5 % (0.0-10.0); NEUT # 7.9 K/uL (1.8-7.0); NEUT % 75.1 % (50.0-75.0); NRBC % 0.1 % (0.0-2.0); RBC 4.17 Mil/uL (3.80-5.20); RED CELL DISTRIBUTION WIDTH 20.1 % (11.5-14.5); WHITE BLOOD COUNT 10.5 K/uL (4.8-10.8)
[2018-03-07 06:23] LABS: INR 1.2; PROTHROMBIN TIME 13.5 SECONDS (9.7-12.2)
[2018-03-07 06:48] LABS: ALB/GLOB RATIO 0.6 (1.0-2.1); ALBUMIN 3.2 g/dL (3.5-5.0); ALT/SGPT 49 U/L (9-52); AST/SGOT 65 U/L (14-36); BLOOD UREA NITROGEN 11 mg/dL (7-17); CALCIUM 8.8 mg/dl (8.6-10.4); GFR AFRICAN-AMERICAN > 60; GFR NON-AFRICAN AMERICAN > 60
--- NOTE | 2018-03-07 07:00 | CP.PCM.PN ---
Subjective - Date & Time of Evaluation Date of Evaluation: 03/06/18 Time of Evaluation: 17:50 - Subjective Subjective: Morning events noted Patient was in rapid a fib now NSR Trops negative Being treated for PE Continue Cardizem Objective - Vital Signs/Intake and Output Vital Signs (last 24 hours): Temp Pulse Resp BP Pulse Ox 98.4 F 97 H 27 H 126/70 94 L 03/07/18 04:00 03/07/18 06:20 03/07/18 03:57 03/07/18 03:57 03/07/18 03:57 Intake and Output: 03/06/18 03/07/18 18:59 06:59 Intake Total 1545.0 207.5 Output Total 800 300 Balance 745.0 -92.5 - Medications Medications: Current Medications Acetaminophen (Tylenol 325mg Tab) 650 mg PO Q6 PRN PRN Reason: Pain, Mild (1-3) Albuterol/Ipratropium (Duoneb 3 Mg/0.5 Mg (3 Ml) Ud) 3 ml INH RQ6 PRN PRN Reason: Shortness of Breath Budesonide (Pulmicort Respules) 0.5 mg INH RQ12 ZURDO Last Admin: 03/06/18 19:53 Dose: 0.5 mg Diltiazem HCl (Cardizem Cd) 360 mg PO DAILY ZURDO Furosemide (Lasix) 20 mg PO DAILY ZURDO Last Admin: 03/06/18 09:58 Dose: Not Given Heparin Sodium/Sodium Chloride (Heparin 74149 Units/250ml 1/2 Normal Saline) 25 ,000 units in 250 mls @ 17.236 mls/hr IV .[id number] PRN; Protocol; 8 UNITS/KG/HR PRN Reason: ADJUST RATE PER PROTOCOL Last Admin: 03/06/18 21:00 Dose: 10 units/kg/hr, 21.546 mls/hr Lidocaine (Lidoderm) 1 ea TD DAILY ZURDO Last Admin: 03/06/18 12:17 Dose: 1 ea Lidocaine (Lidoderm) 1 ea TD DAILY ZURDO Last Admin: 03/06/18 12:36 Dose: 1 ea Methylprednisolone (Solu-Medrol) 40 mg IV Q12H ZURDO Last Admin: 03/06/18 22:08 Dose: 40 mg Pantoprazole Sodium (Protonix Ec Tab) 40 mg PO DAILY ZURDO Last Admin: 03/06/18 12:17 Dose: 40 mg Tiotropium Rice (Spiriva) 18 mcg INH RQ24 ZURDO Last Admin: 03/06/18 08:34 Dose: 18 mcg Tobramycin/Dexamethasone (Tobradex Opht Susp) 0 ml OD QID ZURDO Last Admin: 03/06/18 22:30 Dose: 2 drop Verapamil HCl (Calan Sr Tab) 240 mg PO ONCE [facility] - Labs Labs: 03/07/18 06:06 03/07/18 06:07 PT 13.5 SECONDS (9.7-12.2) H 03/07/18 06:07 INR 1.2 03/07/18 06:07 APTT 51 SECONDS (21-34) H D 03/07/18 06:07
[2018-03-07] MEDS: Budesonide 0.5 mg/2 ml Inhal Susp UD INH SCH (08:00)
[2018-03-07] MEDS: Heparin25000 units/250ml 1/2NS 25,000 UNITS/250 ML BAG IV PRN (08:57)
[2018-03-07] MEDS: Pantoprazole 40 mg EC Tab PO SCH (09:01)
[2018-03-07] MEDS: Lidocaine 5% Patch TD SCH ×2 (09:26)
[2018-03-07] MEDS: Tobramycin/Dexamethasone (Tobradex) Opth Sol (2.5 ml) OD SCH (09:27)
--- NOTE | 2018-03-07 09:54 | RAD ---
Chest x-ray single frontal view History: Congestion. Comparison: 03/06/2018 Findings: Moderate to severe venous congestion with confluent consolidative opacification in the mid to lower lung zones bilaterally. Moderate bilateral pleural effusions. Cardiomegaly. Degenerative changes in the spine and shoulders. Impression: Moderate to severe venous congestion with confluent consolidative opacification in the mid to lower lung zones bilaterally. Moderate bilateral pleural effusions. Cardiomegaly.
[2018-03-07] MEDS ORDERED: diltiaZEM 180 mg/24 Hours CD Cap PO SCH (10:00)
[2018-03-07] MEDS ORDERED: Verapamil 240 mg ER Tab PO SCH (10:00)
[2018-03-07] MEDS: Tiotropium 18 mcg Cap For Inhalation INH SCH (10:52)
[2018-03-07] MEDS: MethylPREDNISolone 40 mg Vial IV SCH (11:18)
[2018-03-07] MEDS ORDERED: Verapamil 240 mg ER Tab PO ONE (12:20)
[2018-03-07 15:01] VITALS: BP 150/87; PULSE 98; RESP 22; TEMP 98.7; O2SAT 95
--- NOTE | 2018-03-07 22:07 | CP.PCM.DIS ---
Provider - Provider Date of Admission: 02/28/18 19:16 Attending physician: Mei Grey MD Time Spent in preparation of Discharge (in minutes): 45 Hospital Course - Lab Results Lab Results: Micro Results 03/06/18 02:43 Urine,[place] Urine Culture - Final No Growth (<1,000 CFU/ML) 02/28/18 06:00 Nose MRSA Culture (Admit) - Final MRSA NOT DETECTED 02/28/18 06:00 Urine,Catheterized Urine Culture - Final No Growth (<1,000 CFU/ML) Most Recent Lab Values WBC 10.5 K/uL (4.8-10.8) 03/07/18 06:06 RBC 4.17 Mil/uL (3.80-5.20) 03/07/18 06:06 Hgb 8.6 g/dL (11.0-16.0) L 03/07/18 06:06 Hct 27.5 % (34.0-47.0) L 03/07/18 06:06 MCV 65.9 fL (81.0-99.0) L 03/07/18 06:06 MCH 20.5 pg (27.0-31.0) L 03/07/18 06:06 MCHC 31.1 g/dL (33.0-37.0) L 03/07/18 06:06 RDW 20.1 % (11.5-14.5) H 03/07/18 06:06 Plt Count 173 K/uL (130-400) 03/07/18 06:06 MPV 8.6 fL (7.2-11.7) 03/07/18 06:06 Neut % (Auto) 75.1 % (50.0-75.0) H 03/07/18 06:06 Lymph % (Auto) 20.2 % (20.0-40.0) 03/07/18 06:06 [place] % (Auto) 4.5 % (0.0-10.0) 03/07/18 06:06 Eos % (Auto) 0.0 % (0.0-4.0) 03/07/18 06:06 Baso % (Auto) 0.2 % (0.0-2.0) 03/07/18 06:06 Neut # (Auto) 7.9 K/uL (1.8-7.0) H 03/07/18 06:06 Lymph # (Auto) 2.1 K/uL (1.0-4.3) 03/07/18 06:06 [place] # (Auto) 0.5 K/uL (0.0-0.8) 03/07/18 06:06 Eos # (Auto) 0.0 K/uL (0.0-0.7) 03/07/18 06:06 Baso # (Auto) 0.0 K/uL (0.0-0.2) 03/07/18 06:06 Differential Comment 02/28/18 17:23 Retic Count 1.0 % (0.5-1.5) 03/06/18 01:50 PT 13.5 SECONDS (9.7-12.2) H 03/07/18 06:07 INR 1.2 03/07/18 06:07 APTT 51 SECONDS (21-34) H D 03/07/18 06:07 D-Dimer, Quantitative 1884 ng/mlDDU (0-243) H 02/28/18 17:23 Puncture Site L rad 03/05/18 05:27 pCO2 66 mm/Hg (35-45) H 03/05/18 05:27 pO2 66 mm/Hg (80-100) L 03/05/18 05:27 HCO3 32.1 mmol/L (21-28) H 03/05/18 05:27 ABG pH 7.35 (7.35-7.45) 03/05/18 05:27 ABG Total CO2 38.4 mmol/L (22-28) H 03/05/18 05:27 ABG O2 Saturation 96.0 % (95-98) 03/05/18 05:27 ABG Base Excess 9.3 mmol/L (-2.0-3.0) H 03/05/18 05:27 ABG Hemoglobin 8.6 g/dL (11.7-17.4) L 03/05/18 05:27 ABG Carboxyhemoglobin 2.6 % (0.5-1.5) H 03/05/18 05:27 POC ABG HHb (Measured) 3.9 % (0.0-5.0) 03/05/18 05:27 ABG Methemoglobin 0.8 % (0.0-3.0) 03/05/18 05:27 Chad Test Pos 03/05/18 05:27 VBG pH 7.22 (7.32-7.43) L 02/28/18 17:25 VBG pCO2 84 mmHg (40-60) H* 02/28/18 17:25 VBG HCO3 27.3 mmol/L 02/28/18 17:25 VBG Total CO2 37.0 mmol/L (22-28) H 02/28/18 17:25 VBG O2 Sat (Calc) 81.7 % (40-65) H 02/28/18 17:25 VBG Base Excess 3.8 mmol/L (0.0-2.0) H 02/28/18 17:25 VBG Potassium 3.9 mmol/L (3.6-5.2) 02/28/18 17:25 A-a O2 Difference 65.0 mm/Hg 03/05/18 05:27 Respiratory Index 1.0 03/05/18 05:27 Hgb O2 Saturation 92.7 % (95.0-98.0) L 03/05/18 05:27 Sodium 137.0 mmol/l (132-148) 02/28/18 17:25 Chloride 102.0 mmol/L (98-107) 02/28/18 17:25 Glucose 92 mg/dl (65-105) 02/28/18 17:25 Lactate 0.7 mmol/L (0.7-2.1) 02/28/18 17:25 Vent Mode Bipap 03/05/18 05:27 FiO2 30.0 % 03/05/18 05:27 Inspiratory BiPAP 16 03/05/18 05:27 Expiratory BiPAP 8 03/05/18 05:27 Crit Value Called To Dr fields 02/28/18 17:25 Crit Value Called By Shaquille bobby 02/28/18 17:25 Crit Value Read Back Y 02/28/18 17:25 Blood Gas Notified Time 1732 02/28/18 17:25 Sodium 140 mmol/L (132-148) 03/07/18 06:07 Potassium 4.7 mmol/L (3.6-5.2) 03/07/18 06:07 Chloride 101 mmol/L (98-107) 03/07/18 06:07 Carbon Dioxide 33 mmol/L (22-30) H 03/07/18 06:07 Anion Gap 10 (10-20) 03/07/18 06:07 BUN 11 mg/dL (7-17) 03/07/18 06:07 Creatinine 0.5 mg/dL (0.7-1.2) L 03/07/18 06:07 Est GFR ( Amer) > 60 03/07/18 06:07 Est GFR (Non-Af Amer) > 60 03/07/18 06:07 POC Glucose (mg/dL) 102 mg/dL (65-110) 03/07/18 12:35 Random Glucose 128 mg/dL (65-105) H 03/07/18 06:07 Lactic Acid 0.6 mmol/L (0.7-2.1) L 03/06/18 01:50 Calcium 8.8 mg/dl (8.6-10.4) 03/07/18 06:07 Phosphorus 4.5 mg/dL (2.5-4.5) 03/07/18 06:07 Magnesium 1.9 mg/dL (1.6-2.3) 03/07/18 06:07 Iron 18 ug/dL (37-170) L 03/06/18 01:50 TIBC 232 ug/dL (250-450) L 03/06/18 01:50 % Saturation 8 (20-55) L 03/06/18 01:50 Transferrin 146.32 mg/dL (206-381) L 03/06/18 01:50 Ferritin 28.9 ng/mL 03/06/18 01:50 Total Bilirubin 0.4 mg/dL (0.2-1.3) 03/07/18 06:07 AST 65 U/L (14-36) H D 03/07/18 06:07 ALT 49 U/L (9-52) 03/07/18 06:07 Alkaline Phosphatase 62 U/L (38-126) 03/07/18 06:07 Total Creatine Kinase 242 U/L (30-135) H 03/06/18 01:50 CK-MB (Mass) 6.71 ng/mL (0.0-3.38) H 03/06/18 01:50 Troponin I < 0.0120 ng/mL (0.00-0.120) 03/06/18 19:34 NT-Pro-B Natriuret Pep 168 pg/mL (0-450) 03/05/18 06:11 Total Protein 8.4 g/dL (6.3-8.3) H 03/07/18 06:07 Total Protein (PEP) 7.9 g/dL (6.1-8.1) 03/06/18 01:50 Albumin 3.2 g/dL (3.5-5.0) L 03/07/18 06:07 Globulin 5.2 gm/dL (2.2-3.9) H 03/07/18 06:07 Albumin/Globulin Ratio 0.6 (1.0-2.1) L 03/07/18 06:07 TSH 3rd Generation 2.61 mIU/L (0.46-4.68) 03/06/18 02:43 Beta HCG, Quant < 2.39 mIU/ML 02/28/18 18:36 Venous Blood Potassium 3.9 mmol/L (3.6-5.2) 02/28/18 17:25 Urine Color [place] (YELLOW) 03/06/18 02:43 Urine Clarity Hazy (Clear) 03/06/18 02:43 Urine pH 5.0 (5.0-8.0) 03/06/18 02:43 Ur Specific [place] 1.020 (1.003-1.030) 03/06/18 02:43 Urine Protein 1+ mg/dL (NEGATIVE) H 03/06/18 02:43 Urine Glucose (UA) Normal mg/dL (Normal) 03/06/18 02:43 Urine Ketones Negative mg/dL (NEGATIVE) 03/06/18 02:43 Urine Blood 2+ (NEGATIVE) H 03/06/18 02:43 Urine Nitrate Negative (NEGATIVE) 03/06/18 02:43 Urine Bilirubin Negative (NEGATIVE) 03/06/18 02:43 Urine Urobilinogen Normal mg/dL (0.2-1.0) 03/06/18 02:43 Ur Leukocyte Esterase Trace Quentin/uL (Negative) 03/06/18 02:43 Urine WBC (Auto) 8 /hpf (0-5) H 03/06/18 02:43 Urine RBC (Auto) 17 /hpf (0-3) H 03/06/18 02:43 Ur Squamous Epith Cells 5 /hpf (0-5) 03/06/18 02:43 Urine Bacteria Few (<OCC) H 03/06/18 02:43 Hyaline Casts 6-10 /lpf (0-2) H 03/06/18 02:43 Granular Casts (Auto) 5 /lpf (0-1) 03/06/18 02:43 Urine HCG, Qual Negative (NEGATIVE) 02/28/18 23:54 Stool Occult Blood Negative (NEGATIVE) 03/07/18 07:53 - Hospital Course Hospital Course: 23-year-old female with a history of obesity, hypertension admitted to the hospital with the shortness of breath. Patient developed SOB over the course of few days. Gradually getting worse. The emergency room was noted to be high d-dimer. Also abnormal chest x-ray. Initially patient was started on intravenous antibiotic, heparin drip. Bronchodilators. Corticosteroid. Patient in the ICU closely monitor. Placed on BiPAP. Unable to do any investigation including CT angiogram, VQ scan. But she was empirically treated for PE, and pneumonia. Patient Doppler test was negative. Venous Doppler negative. Echocardiogram normal ejection fraction. Moderate pulmonary hypertension Because of the unclear diagnosis was decided that the patient will need a further management, and CAT scan of the chest. She'll be transferred to [facility]. Patient is currently an antibiotic. Bronchodilators. BiPAP. Heparin drip. After the CAT scan and further management patient may need to have physical therapy. Will follow the patient Discharge Exam - Head Exam Head Exam: ATRAUMATIC, NORMAL INSPECTION, NORMOCEPHALIC Discharge Plan - Follow Up Plan Condition: FAIR Disposition: HOME/ ROUTINE Instructions: Shortness of Breath (Dyspnea) (DC), Computed Tomography Angiography, Chest
--- NOTE | 2018-03-08 09:40 | CARD ---
APPROVED REPORT Date of service: 02/28/2018 EKG Measurement Heart [id number] <Conclusion> Sinus tachycardia Anterior infarct, age undetermined Abnormal ECG
[2018-03-08] MEDS ORDERED: Lidocaine 5% Patch TD SCH ×2 (10:00)
--- NOTE | 2018-03-08 17:10 | CP.PCM.PN ---
Subjective - Date & Time of Evaluation Date of Evaluation: 03/06/18 Time of Evaluation: 17:10 - Subjective Subjective: The patient had an SVT, and also tachycardia last night. Heart rate was controlled after that. Placed on Cardizem drip, improved hearted. Heparin drip is on. Patient is still having some episodes of shortness of breath. But able to stand up. Denies any chest pain On examination: Vital signs stable. Chest bilateral wheezing noted irregular heart sound. Next immitis edema Assessment and recommendation: 23-year-old female with a history of obesity hypertension hypoventilation. Receiving currently diuretics. On heparin drip. Patient possibly has acute infiltrate. Underlying the primary embolism cannot be ruled out. On heparin drip. Continue the patient on Solu-Medrol. Some improvement noted. I spoke to the patient's family in details about the possible transfer to different institute to get a CAT scan of the lungs. Family is agreeing for transfer. Will get a bed in [facility]. Once the bed is available patient can be transferred Objective - Vital Signs/Intake and Output Vital Signs (last 24 hours): Temp Pulse Resp BP Pulse Ox 98.7 F 98 H 22 150/87 95 03/07/18 12:00 03/07/18 12:00 03/07/18 12:00 03/07/18 12:00 03/07/18 12:00 - Labs Labs: 03/07/18 06:06 03/07/18 06:07 PT 13.5 SECONDS (9.7-12.2) H 03/07/18 06:07 INR 1.2 03/07/18 06:07 APTT 51 SECONDS (21-34) H D 03/07/18 06:07
--- NOTE | 2018-03-09 22:59 | CARD ---
APPROVED REPORT Date of service: 03/06/2018 EKG Measurement Heart [id number] <Conclusion> Sinus tachycardia Otherwise normal ECG
== END 2018-03-07 13:20 | disposition short-term general hospital (02) | DRG 541 ==
LOC: C.ER 15:56 → C.9E 19:16 → C.6T 21:14 → C.9E 21:19 → C.9I 21:23
PROVIDERS: ADMIT Internal Medicine; ATTEND Internal Medicine
PROC: 5A09557 Assistance with Respiratory Ventilation, Greater than 96 Consecutive Hours, Continuous Positive Airway Pressure (ICD-10-PCS; principal; 2018-02-28)
PROC: 02HV33Z Insertion of Infusion Device into Superior Vena Cava, Percutaneous Approach (ICD-10-PCS; 2018-03-02)
DX: J18.9 Pneumonia, unspecified organism (principal); J96.01 Acute respiratory failure with hypoxia; E66.2 Morbid (severe) obesity with alveolar hypoventilation; E87.2 Acidosis; I48.91 Unspecified atrial fibrillation; I31.3 Pericardial effusion (noninflammatory); I27.20 Pulmonary hypertension, unspecified; I10 Essential (primary) hypertension; D64.9 Anemia, unspecified; G47.33 Obstructive sleep apnea (adult) (pediatric); H10.9 Unspecified conjunctivitis; I47.1 Supraventricular tachycardia; R79.1 Abnormal coagulation profile; Z68.45 Body mass index [BMI] 70 or greater, adult

== ENCOUNTER 2018-10-15 14:12 | Inpatient (IN) | payer MEDICAID ==
[2018-10-15 14:12] VITALS: PULSE 148
--- NOTE | 2018-10-15 15:42 | C.PDOC ---
History Of Present Illness 23 y/o F p/w leg swelling and dyspnea x 3 days. Patient states both of her legs are swelling and she has shortness of breath. She has been taking her home dose Lasix but states it is not working and called her PMD who instructed her to come to ED for further evaluation. Patient denies history of CHF. Patient also reports a sprain of the R hip which occurred while she was in bed. She declines an XR for the hip. PMD Que Time Seen by Provider: 10/15/18 14:13 Chief Complaint (Nursing): Hip Pain Past Medical History Vital Signs: Last Vital Signs Temp 97.9 F 10/15/18 14:40 Pulse 119 H 10/15/18 14:40 Resp 24 10/15/18 14:40 BP 132/62 10/15/18 15:21 Pulse Ox 97 10/15/18 14:40 - Medical History PMH: Arthritis (back, knee, hip), Atrial Fibrillation (10/15/18), HTN, Sleep Apnea - [facility] ASSISTANCE WITH RESPIRATORY VENTILATION, >96 HRS, CPAP (02/28/18) INSERTION OF INFUSION DEV INTO SUP VENA CAVA, PERC APPROACH (02/28/18) Family History: States: No Known Family Hx - Social History Hx Alcohol Use: No Hx Substance Use: No - Immunization History Hx Tetanus Toxoid Vaccination: No Hx Influenza Vaccination: Yes Hx Pneumococcal Vaccination: No Review Of Systems Except As Marked, All Systems Reviewed And Found Negative. Constitutional: Negative for: Fever Cardiovascular: Negative for: Chest Pain Physical Exam - Physical Exam Additional Physical Exam Comments: Constitutional: No acute distress.Morbidly obese Head: Normocephalic. Atraumatic. Eyes: PERRL. ENT: Moist mucous membranes. Neck: Supple. Cardiovascular: Tachycardic. Radial pulse 2+ bilaterally. Chest: No tenderness. Respiratory: Clear to auscultation bilaterally. GI: Soft. Nontender. Nondistended. Back: No CVA tenderness. Musculoskeletal: Bilateral lower legs large, edema not discernible based on patient's habitus. No tenderness of extremities. Skin: No rash. Neurologic: Alert, no focal deficit. ED Course And Treatment - Laboratory Results Result Diagrams: 10/15/18 15:45 10/15/18 15:45 O2 Sat by Pulse Oximetry: 97 Medical Decision Making Medical Decision Making: CXR bilateral pleural effusions, cardiomegaly. EKG NSR 99 bpm, no ST elevations Dr. Grey accepts patient to his service. Disposition - Disposition Disposition: HOSPITALIZED Disposition Time: 17:00 Condition: GUARDED Forms: [facility] (Irish) - Clinical Impression Clinical Impression: CHF exacerbation
[2018-10-15 15:48] LABS: BASO % 0.4 % (0.0-2.0); EOS # 0.2 K/uL (0.0-0.7); EOS % 1.7 % (0.0-4.0); LYMPH # 1.8 K/uL (1.0-4.3); LYMPH % 20.4 % (20.0-40.0); MEAN CORPUSCULAR HEMOGLOBIN 22.7 pg (27.0-31.0); MEAN CORPUSCULAR HGB CONC 30.7 g/dL (33.0-37.0); MEAN PLATELET VOLUME 7.4 fL (7.2-11.7); MONO # 0.4 K/uL (0.0-0.8); MONO % 4.2 % (0.0-10.0); NEUT # 6.6 K/uL (1.8-7.0); NEUT % 73.3 % (50.0-75.0); RBC 4.41 Mil/uL (3.80-5.20); RED CELL DISTRIBUTION WIDTH 18.5 % (11.5-14.5)
[2018-10-15 15:49] LABS: MEAN CELL VOLUME 74.1 fL (81.0-99.0)
[2018-10-15 16:10] LABS: ALB/GLOB RATIO 0.6 (1.0-2.1); ALBUMIN 3.2 g/dL (3.5-5.0); ALT/SGPT 29 U/L (9-52); AST/SGOT 118 U/L (14-36); BLOOD UREA NITROGEN 13 mg/dL (7-17); CALCIUM 8.8 mg/dl (8.6-10.4); GFR NON-AFRICAN AMERICAN > 60
[2018-10-15 16:14] LABS: B-TYPE NATRIURETIC PEPTIDE 134 pg/mL (0-450); CK-MB 17.2 ng/mL (0.0-3.38)
[2018-10-15 16:15] LABS: INR 1.4
--- NOTE | 2018-10-15 17:43 | CP.PCM.HP ---
History of Present Illness - History of Present Illness History of Present Illness: Chief complaint: Increasing leg swelling, unable to walk. HPI: Patient is a 23-year-old female with history of obesity, obesity hypove ntilation, history of paroxysmal atrial flutter, history of DVT and PE, on anticoagulation, history of respiratory insufficiency status post tracheostomy and decannulation. Patient also had a history of heart failure. Patient recently hospitalized at [facility] a month ago, at that time patient was admitted with fluid overload, pneumonia. Patient was intubated and extubated. Patient now in the house. Having hard time to get out of the house, get out of the bed. Difficult time recently, associate with worsening pain in the bilateral hip region. Complaining of some increasing weight gain also noted. But patient has a significant weight loss compared to 6 months to 8 months ago. Patient in the process of getting the bariatric surgery. Now having minimal cough. No chest pain. Exertional dyspnea noted. Denies any abdominal pain. Past medical history: Hypertension. Paroxysmal atrial flutter fibrillation History of obesity hypoventilation. History of respiratory insufficiency status post a tracheostomy. History of anticoagulation Surgical history: Status post a tracheostomy. Family history: Father is healthy. Mother had a history of neck cancer. Siblings 4 sisters and one brother healthy. Non-smoker. Occasional drinks alcohol. Currently no exercise. Recently getting hospitalized deon frequently Patient denies any headache. But complaining of some exertional dyspnea. Abdominal pain negative. Bilateral leg pain and hip pain noted. On examination: Vital signs are noted. Mild tachycardia noted. Room air oxygen saturation is 91, improved to 94-95% with the cannula Chest bilateral good air entry, minimal expiratory in the basal rales noted Heart sounds are regular Abdomen obese. Extremities edema noted up to mid thigh Chest x-ray basilar atelectatic changes noted. ProBNP level is normal. Labs otherwise nonspecific. Assessment and recommendation: 23-year-old male with a history of obesity, obesity hypoventilation, hypertension, proximal atrial flutter fibrillation, history of chronic respiratory insufficiency with acute respiratory failure in the past admitted now with increasing fluid overload. Bilateral leg swelling. Left leg most likely cellulitis of the left thigh region noted. Patient is also had a history of atrial flutter fibrillation and a high risk for DVT PE. Needs to be on anticoagulation. Physical therapy. Bronchodilators. BiPAP as needed. Oxygen treatment. We will continue the current treatment. And will follow the patient. Present on Admission - Present on Admission Any Indicators Present on Admission: No History of DVT/PE: No History of Uncontrolled Diabetes: No Urinary Catheter: No Decubitus Ulcer Present: No Past Patient History - Infectious Disease Hx of Infectious Diseases: None - Past Medical History & Family History Past Medical History?: Yes - Past Social History Smoking Status: Never Smoked - CARDIAC Hx Atrial Fibrillation: Yes (10/15/18) Hx Hypertension: Yes - PULMONARY Hx Sleep Apnea: Yes - NEUROLOGICAL Hx Neurological Disorder: No - ENDOCRINE/METABOLIC Hx Endocrine Disorders: Yes Other/Comment: pre diabetic - HEMATOLOGICAL/ONCOLOGICAL Hx Blood Disorders: No - INTEGUMENTARY Hx Dermatological Problems: No - MUSCULOSKELETAL/RHEUMATOLOGICAL Hx Arthritis: Yes (back, knee, hip) - GASTROINTESTINAL Hx Gastrointestinal Disorders: No - GENITOURINARY/GYNECOLOGICAL Hx Genitourinary Disorders: No - PSYCHIATRIC Hx Substance Use: No - SURGICAL HISTORY Hx Surgeries: No - ANESTHESIA Hx Anesthesia: No Hx Anesthesia Reactions: No Meds Allergies/Adverse Reactions: Allergies Allergy/AdvReac Type Severity Reaction Status Date / Time No Known Allergies Allergy Verified 10/15/18 14:44 Results - Vital Signs Recent Vital Signs: Last Vital Signs Temp 97.9 F 10/15/18 14:40 Pulse 119 H 10/15/18 14:40 Resp 24 10/15/18 14:40 BP 132/62 10/15/18 15:21 Pulse Ox 97 10/15/18 17:00 - Labs Result Diagrams: 10/15/18 15:45 10/15/18 15:45 Labs: Laboratory Results - last 24 hr 10/15/18 10/15/18 10/15/18 15:45 15:45 15:59 WBC 9.0 RBC 4.41 Hgb 10.0 L Hct 32.6 L MCV 74.1 L D MCH 22.7 L MCHC 30.7 L RDW 18.5 H Plt Count 341 D MPV 7.4 Neut % (Auto) 73.3 Lymph % (Auto) 20.4 [place] % (Auto) 4.2 Eos % (Auto) 1.7 Baso % (Auto) 0.4 Neut # (Auto) 6.6 Lymph # (Auto) 1.8 [place] # (Auto) 0.4 Eos # (Auto) 0.2 Baso # (Auto) 0.0 PT 15.0 H INR 1.4 APTT 35 H Sodium 134 Potassium 5.0 Chloride 94 L Carbon Dioxide 36 H Anion Gap 9 L BUN 13 Creatinine 0.3 L Est GFR ( Amer) > 60 Est GFR (Non-Af Amer) > 60 Random Glucose 87 D Calcium 8.8 Total Bilirubin 0.6 AST 118 H D ALT 29 Alkaline Phosphatase 74 Total Creatine Kinase 446 H CK-MB (Mass) 17.2 H Troponin I 0.0220 NT-Pro-B Natriuret Pep 134 Total Protein 8.9 H Albumin 3.2 L Globulin 5.7 H Albumin/Globulin Ratio 0.6 L Beta HCG, Quant < 2.39
[2018-10-15] MEDS ORDERED: Lidocaine 5% Patch TD SCH ×2 (18:00→21:26)
[2018-10-15] MEDS ORDERED: Lidocaine 5% Patch TD ONE (19:06)
[2018-10-15 20:56] VITALS: BMI 70.5
[2018-10-16] MEDS: Albuterol-Ipratrop 3 mg / 0.5 (3 ml) UD INH SCH ×4 (01:11→19:20)
[2018-10-16 06:30] LABS: BASO % 0.4 % (0.0-2.0); EOS # 0.3 K/uL (0.0-0.7); EOS % 4.9 % (0.0-4.0); HEMOGLOBIN 9.2 g/dL (11.0-16.0); LYMPH # 2.3 K/uL (1.0-4.3); LYMPH % 39.5 % (20.0-40.0); MEAN CORPUSCULAR HEMOGLOBIN 22.7 pg (27.0-31.0); MEAN CORPUSCULAR HGB CONC 30.7 g/dL (33.0-37.0); MEAN PLATELET VOLUME 7.5 fL (7.2-11.7); MONO # 0.3 K/uL (0.0-0.8); MONO % 5.5 % (0.0-10.0); NEUT % 49.7 % (50.0-75.0); NRBC % 0.2 % (0.0-2.0); RBC 4.05 Mil/uL (3.80-5.20); RED CELL DISTRIBUTION WIDTH 18.5 % (11.5-14.5); WHITE BLOOD COUNT 5.9 K/uL (4.8-10.8)
--- NOTE | 2018-10-16 08:39 | RAD ---
Date of service: 10/16/2018 HISTORY: Evaluate for pneumonia COMPARISON: 10/15/2018. FINDINGS: There is redemonstration of severe cardiomegaly. LUNGS: There are low lung volumes. There is worsening pulmonary venous congestion and interval development of presumable pulmonary edema, worse in the left lung. There is triangular airspace disease in the right lower lobe. PLEURA: Suspect layering effusions. No pneumothorax CARDIOVASCULAR: The heart is normal in size. No aortic atherosclerotic calcifications present. OSSEOUS STRUCTURES: Within normal limits for the patient's age. VISUALIZED UPPER ABDOMEN: Normal. OTHER FINDINGS: None. IMPRESSION: Findings are most compatible with worsening congestive heart failure. Triangular airspace disease in the right lower lobe may represent subsegmental atelectasis, superimposed pneumonia cannot be excluded. Follow-up is advised.
--- NOTE | 2018-10-16 08:45 | RAD ---
Date of service: 10/15/2018 HISTORY: dyspnea COMPARISON: No prior. FINDINGS: LUNGS: There is moderate pulmonary venous congestion. PLEURA: Moderate effusions. No pneumothorax. CARDIOVASCULAR: There is severe cardiomegaly. No aortic atherosclerotic calcifications present. OSSEOUS STRUCTURES: Within normal limits for the patient's age. VISUALIZED UPPER ABDOMEN: Normal. OTHER FINDINGS: None. IMPRESSION: Findings are most compatible with moderate congestive heart failure.
[2018-10-16] MEDS: Pantoprazole 40 mg EC Tab PO SCH (10:14)
[2018-10-16 11:47] LABS: ALB/GLOB RATIO 0.6 (1.0-2.1); ALBUMIN 2.8 g/dL (3.5-5.0); ALT/SGPT 31 U/L (9-52); AST/SGOT 79 U/L (14-36); BLOOD UREA NITROGEN 16 mg/dL (7-17); CALCIUM 8.5 mg/dl (8.6-10.4); GFR NON-AFRICAN AMERICAN > 60
--- NOTE | 2018-10-16 16:56 | CARD ---
APPROVED REPORT Date of service: 10/15/2018 EKG Measurement Heart [id number] P27 [id number] <Conclusion> Normal sinus rhythm Possible Inferior infarct, age undetermined Possible Anterolateral infarct, age undetermined Abnormal ECG
[2018-10-16] MEDS: Bacitracin Ointment 30 GM TUBE TOP SCH (18:24)
[2018-10-16] MEDS ORDERED: MethylPREDNISolone 40 mg Vial IVP PRN (22:44)
[2018-10-17] MEDS: Albuterol-Ipratrop 3 mg / 0.5 (3 ml) UD INH SCH ×4 (01:20→20:12)
[2018-10-17] MEDS: Capsaicin 0.025% Cream (60 gm) TOP PRN ×2 (02:03→06:48)
[2018-10-17] MEDS: Pantoprazole 40 mg EC Tab PO SCH (09:30)
[2018-10-17] MEDS: Lidocaine 5% Patch TD SCH ×2 (09:30)
[2018-10-17] MEDS: Bacitracin Ointment 30 GM TUBE TOP SCH ×2 (12:38→21:46)
[2018-10-18] MEDS: Capsaicin 0.025% Cream (60 gm) TOP PRN ×2 (00:34→21:17)
[2018-10-18] MEDS: Albuterol-Ipratrop 3 mg / 0.5 (3 ml) UD INH SCH ×4 (01:30→20:11)
[2018-10-18] MEDS ORDERED: Pneumococcal 23-Valent Vaccine IM ONE (10:00)
[2018-10-18] MEDS: Bacitracin Ointment 30 GM TUBE TOP SCH ×2 (10:38→17:40)
[2018-10-18] MEDS: Pantoprazole 40 mg EC Tab PO SCH (10:38)
[2018-10-18] MEDS: Lidocaine 5% Patch TD SCH ×2 (10:39)
[2018-10-19] MEDS: Albuterol-Ipratrop 3 mg / 0.5 (3 ml) UD INH SCH ×4 (01:17→19:12)
[2018-10-19] MEDS: Capsaicin 0.025% Cream (60 gm) TOP PRN ×2 (04:00→20:06)
[2018-10-19] MEDS: Bacitracin Ointment 30 GM TUBE TOP SCH ×2 (10:36→18:05)
[2018-10-19] MEDS: Lidocaine 5% Patch TD SCH ×2 (10:36)
[2018-10-19] MEDS: Pantoprazole 40 mg EC Tab PO SCH (10:36)
[2018-10-19] MEDS: Ferric Sodium Gluconat Complex 62.5 mg/5 ml Vial IVPB SCH (13:31)
[2018-10-19] MEDS ORDERED: Albuterol-Ipratrop 3 mg / 0.5 (3 ml) UD INH STA (23:44)
[2018-10-20] MEDS: Albuterol-Ipratrop 3 mg / 0.5 (3 ml) UD INH SCH ×4 (02:52→19:14)
--- NOTE | 2018-10-20 06:36 | CP.PCM.PN ---
Subjective - Date & Time of Evaluation Date of Evaluation: 10/15/18 Time of Evaluation: 06:35 - Subjective Subjective: Patient having increasing leg swelling. Complaining of bilateral knee pain. I spoke to the patient's mother in detail. We will continue the current diuretics. And will follow up the patient Objective - Vital Signs/Intake and Output Vital Signs (last 24 hours): Temp Pulse Resp BP Pulse Ox 98 F 107 H 20 98/61 L 93 L 10/19/18 23:31 10/19/18 23:31 10/19/18 23:31 10/19/18 23:31 10/19/18 23:31 Intake and Output: 10/19/18 10/20/18 18:59 06:59 Intake Total 900 500 Output Total 1200 1300 Balance -300 -800 - Medications Medications: Current Medications Acetaminophen (Tylenol 325mg Tab) 650 mg PO Q6 PRN PRN Reason: Pain, moderate (4-7) Last Admin: 10/19/18 20:05 Dose: 650 mg Albuterol/Ipratropium (Duoneb 3 Mg/0.5 Mg (3 Ml) Ud) 3 ml INH RQ6 [facility] Last Admin: 10/20/18 02:52 Dose: Not Given Amiodarone HCl (Cordarone) 200 mg PO DAILY [facility] Last Admin: 10/19/18 10:36 Dose: 200 mg Apixaban (Eliquis) 5 mg PO Q12 ZURDO Last Admin: 10/19/18 21:50 Dose: 5 mg Bacitracin (Bacitracin) 1 gm TOP BID ZURDO Last Admin: 10/19/18 18:05 Dose: 1 gm Capsaicin (Trixaicin) 0 gm TOP TID PRN PRN Reason: Pain, Mild (1-3) Last Admin: 10/19/18 20:06 Dose: 60 gm Ferric Sodium Gluconate Complex (Ferrlecit) 125 mg IVPB DAILY [facility] Stop: 10/27/18 12:46 Last Admin: 10/19/18 13:31 Dose: 125 mg Furosemide (Lasix) 20 mg IVP Q12 [facility] Last Admin: 10/19/18 21:49 Dose: 20 mg Influenza Virus Vaccine (Flucelvax Quad [id number] Syr) 60 mcg IM .ONCE ONE Stop: 10/20/18 07:01 Lidocaine (Lidoderm) 1 ea TD DAILY [facility] Last Admin: 10/19/18 10:36 Dose: 1 ea Lidocaine (Lidoderm) 1 ea TD DAILY ZURDO Last Admin: 10/19/18 10:36 Dose: 1 ea Metformin HCl (Glucophage) 500 mg PO BID ZURDO Last Admin: 10/19/18 18:05 Dose: Not Given Pantoprazole Sodium (Protonix Ec Tab) 40 mg PO DAILY ZURDO Last Admin: 10/19/18 10:36 Dose: 40 mg - Labs Labs: 10/16/18 06:16 10/16/18 11:20 PT 15.0 SECONDS (9.7-12.2) H 10/15/18 15:59 INR 1.4 10/15/18 15:59 APTT 35 SECONDS (21-34) H 10/15/18 15:59
--- NOTE | 2018-10-20 06:36 | CP.PCM.PN ---
Subjective - Date & Time of Evaluation Date of Evaluation: 10/20/18 Time of Evaluation: 06:36 - Subjective Subjective: Patient is more awake and responding. The low hemoglobin level noted. Ferrlecit started. I spoke to the bariatric surgeon at [facility]. The patient is planning to have the gastric sleeve surgery. But currently pending further workup. Patient will be possibly discharged and she will follow-up there. Meanwhile we will continue the oxygen, bronchodilator. Hospital bed in the house. Diuretics. Physical therapy. Will follow the patient. I spoke to the patient's mother in detail. Objective - Vital Signs/Intake and Output Vital Signs (last 24 hours): Temp Pulse Resp BP Pulse Ox 98 F 107 H 20 98/61 L 93 L 10/19/18 23:31 10/19/18 23:31 10/19/18 23:31 10/19/18 23:31 10/19/18 23:31 Intake and Output: 10/19/18 10/20/18 18:59 06:59 Intake Total 900 500 Output Total 1200 1300 Balance -300 -800 - Medications Medications: Current Medications Acetaminophen (Tylenol 325mg Tab) 650 mg PO Q6 PRN PRN Reason: Pain, moderate (4-7) Last Admin: 10/19/18 20:05 Dose: 650 mg Albuterol/Ipratropium (Duoneb 3 Mg/0.5 Mg (3 Ml) Ud) 3 ml INH RQ6 [facility] Last Admin: 10/20/18 02:52 Dose: Not Given Amiodarone HCl (Cordarone) 200 mg PO DAILY [facility] Last Admin: 10/19/18 10:36 Dose: 200 mg Apixaban (Eliquis) 5 mg PO Q12 [facility] Last Admin: 10/19/18 21:50 Dose: 5 mg Bacitracin (Bacitracin) 1 gm TOP BID [facility] Last Admin: 10/19/18 18:05 Dose: 1 gm Capsaicin (Trixaicin) 0 gm TOP TID PRN PRN Reason: Pain, Mild (1-3) Last Admin: 10/19/18 20:06 Dose: 60 gm Ferric Sodium Gluconate Complex (Ferrlecit) 125 mg IVPB DAILY [facility] Stop: 10/27/18 12:46 Last Admin: 10/19/18 13:31 Dose: 125 mg Furosemide (Lasix) 20 mg IVP Q12 [facility] Last Admin: 10/19/18 21:49 Dose: 20 mg Influenza Virus Vaccine (Flucelvax Quad [id number] Syr) 60 mcg IM .ONCE ONE Stop: 10/20/18 07:01 Lidocaine (Lidoderm) 1 ea TD DAILY [facility] Last Admin: 10/19/18 10:36 Dose: 1 ea Lidocaine (Lidoderm) 1 ea TD DAILY [facility] Last Admin: 10/19/18 10:36 Dose: 1 ea Metformin HCl (Glucophage) 500 mg PO BID [facility] Last Admin: 10/19/18 18:05 Dose: Not Given Pantoprazole Sodium (Protonix Ec Tab) 40 mg PO DAILY [facility] Last Admin: 10/19/18 10:36 Dose: 40 mg - Labs Labs: 10/16/18 06:16 10/16/18 11:20 PT 15.0 SECONDS (9.7-12.2) H 10/15/18 15:59 INR 1.4 10/15/18 15:59 APTT 35 SECONDS (21-34) H 10/15/18 15:59
--- NOTE | 2018-10-20 06:36 | CP.PCM.PN ---
Subjective - Date & Time of Evaluation Date of Evaluation: 10/17/18 Time of Evaluation: 06:36 - Subjective Subjective: Patient is not in any distress. She is awake and responding. The swelling is slightly better. Patient has a some continuing the right side back of the knee. Popliteal fossae area, but the wound is healing well. No chest pain or shortness of breath. Physical therapy to be continued Objective - Vital Signs/Intake and Output Vital Signs (last 24 hours): Temp Pulse Resp BP Pulse Ox 98 F 107 H 20 98/61 L 93 L 10/19/18 23:31 10/19/18 23:31 10/19/18 23:31 10/19/18 23:31 10/19/18 23:31 Intake and Output: 10/19/18 10/20/18 18:59 06:59 Intake Total 900 500 Output Total 1200 1300 Balance -300 -800 - Medications Medications: Current Medications Acetaminophen (Tylenol 325mg Tab) 650 mg PO Q6 PRN PRN Reason: Pain, moderate (4-7) Last Admin: 10/19/18 20:05 Dose: 650 mg Albuterol/Ipratropium (Duoneb 3 Mg/0.5 Mg (3 Ml) Ud) 3 ml INH RQ6 [facility] Last Admin: 10/20/18 02:52 Dose: Not Given Amiodarone HCl (Cordarone) 200 mg PO DAILY [facility] Last Admin: 10/19/18 10:36 Dose: 200 mg Apixaban (Eliquis) 5 mg PO Q12 [facility] Last Admin: 10/19/18 21:50 Dose: 5 mg Bacitracin (Bacitracin) 1 gm TOP BID [facility] Last Admin: 10/19/18 18:05 Dose: 1 gm Capsaicin (Trixaicin) 0 gm TOP TID PRN PRN Reason: Pain, Mild (1-3) Last Admin: 10/19/18 20:06 Dose: 60 gm Ferric Sodium Gluconate Complex (Ferrlecit) 125 mg IVPB DAILY [facility] Stop: 10/27/18 12:46 Last Admin: 10/19/18 13:31 Dose: 125 mg Furosemide (Lasix) 20 mg IVP Q12 [facility] Last Admin: 10/19/18 21:49 Dose: 20 mg Influenza Virus Vaccine (Flucelvax Quad [id number] Syr) 60 mcg IM .ONCE ONE Stop: 10/20/18 07:01 Lidocaine (Lidoderm) 1 ea TD DAILY [facility] Last Admin: 10/19/18 10:36 Dose: 1 ea Lidocaine (Lidoderm) 1 ea TD DAILY [facility] Last Admin: 10/19/18 10:36 Dose: 1 ea Metformin HCl (Glucophage) 500 mg PO BID [facility] Last Admin: 10/19/18 18:05 Dose: Not Given Pantoprazole Sodium (Protonix Ec Tab) 40 mg PO DAILY [facility] Last Admin: 10/19/18 10:36 Dose: 40 mg - Labs Labs: 10/16/18 06:16 10/16/18 11:20 PT 15.0 SECONDS (9.7-12.2) H 10/15/18 15:59 INR 1.4 10/15/18 15:59 APTT 35 SECONDS (21-34) H 10/15/18 15:59
--- NOTE | 2018-10-20 06:36 | CP.PCM.PN ---
Subjective - Date & Time of Evaluation Date of Evaluation: 10/18/18 Time of Evaluation: 06:36 - Subjective Subjective: Patient is currently having no chest pain. She is able to eat well. Blood sugar is stable. Blood pressure is on the low side. Leg swelling is improving. Bilateral knee pain noted. On lidocaine patch. Unable to give the strong pain medications because of the overall prognosis. Patient is a 23-year-old female with a history of obesity. Obesity hypoventilation. Patient also in the past had a respiratory insufficiency. High risk for respiratory failure. Objective - Vital Signs/Intake and Output Vital Signs (last 24 hours): Temp Pulse Resp BP Pulse Ox 98 F 107 H 20 98/61 L 93 L 10/19/18 23:31 10/19/18 23:31 10/19/18 23:31 10/19/18 23:31 10/19/18 23:31 Intake and Output: 10/19/18 10/20/18 18:59 06:59 Intake Total 900 500 Output Total 1200 1300 Balance -300 -800 - Medications Medications: Current Medications Acetaminophen (Tylenol 325mg Tab) 650 mg PO Q6 PRN PRN Reason: Pain, moderate (4-7) Last Admin: 10/19/18 20:05 Dose: 650 mg Albuterol/Ipratropium (Duoneb 3 Mg/0.5 Mg (3 Ml) Ud) 3 ml INH RQ6 [facility] Last Admin: 10/20/18 02:52 Dose: Not Given Amiodarone HCl (Cordarone) 200 mg PO DAILY [facility] Last Admin: 10/19/18 10:36 Dose: 200 mg Apixaban (Eliquis) 5 mg PO Q12 [facility] Last Admin: 10/19/18 21:50 Dose: 5 mg Bacitracin (Bacitracin) 1 gm TOP BID [facility] Last Admin: 10/19/18 18:05 Dose: 1 gm Capsaicin (Trixaicin) 0 gm TOP TID PRN PRN Reason: Pain, Mild (1-3) Last Admin: 10/19/18 20:06 Dose: 60 gm Ferric Sodium Gluconate Complex (Ferrlecit) 125 mg IVPB DAILY [facility] Stop: 10/27/18 12:46 Last Admin: 10/19/18 13:31 Dose: 125 mg Furosemide (Lasix) 20 mg IVP Q12 [facility] Last Admin: 10/19/18 21:49 Dose: 20 mg Influenza Virus Vaccine (Flucelvax Quad [id number] Syr) 60 mcg IM .ONCE ONE Stop: 10/20/18 07:01 Lidocaine (Lidoderm) 1 ea TD DAILY [facility] Last Admin: 10/19/18 10:36 Dose: 1 ea Lidocaine (Lidoderm) 1 ea TD DAILY [facility] Last Admin: 10/19/18 10:36 Dose: 1 ea Metformin HCl (Glucophage) 500 mg PO BID [facility] Last Admin: 10/19/18 18:05 Dose: Not Given Pantoprazole Sodium (Protonix Ec Tab) 40 mg PO DAILY [facility] Last Admin: 10/19/18 10:36 Dose: 40 mg - Labs Labs: 10/16/18 06:16 10/16/18 11:20 PT 15.0 SECONDS (9.7-12.2) H 10/15/18 15:59 INR 1.4 10/15/18 15:59 APTT 35 SECONDS (21-34) H 10/15/18 15:59
--- NOTE | 2018-10-20 06:37 | CP.PCM.DIS ---
Provider - Provider Date of Admission: 10/15/18 16:58 Attending physician: Mei Grey MD Time Spent in preparation of Discharge (in minutes): 45 Hospital Course - Lab Results Lab Results: Most Recent Lab Values WBC 5.9 K/uL (4.8-10.8) 10/16/18 06:16 RBC 4.05 Mil/uL (3.80-5.20) 10/16/18 06:16 Hgb 9.2 g/dL (11.0-16.0) L 10/16/18 06:16 Hct 30.0 % (34.0-47.0) L 10/16/18 06:16 MCV 74.0 fL (81.0-99.0) L 10/16/18 06:16 MCH 22.7 pg (27.0-31.0) L 10/16/18 06:16 MCHC 30.7 g/dL (33.0-37.0) L 10/16/18 06:16 RDW 18.5 % (11.5-14.5) H 10/16/18 06:16 Plt Count 307 K/uL (130-400) 10/16/18 06:16 MPV 7.5 fL (7.2-11.7) 10/16/18 06:16 Neut % (Auto) 49.7 % (50.0-75.0) L 10/16/18 06:16 Lymph % (Auto) 39.5 % (20.0-40.0) 10/16/18 06:16 [place] % (Auto) 5.5 % (0.0-10.0) 10/16/18 06:16 Eos % (Auto) 4.9 % (0.0-4.0) H 10/16/18 06:16 Baso % (Auto) 0.4 % (0.0-2.0) 10/16/18 06:16 Neut # (Auto) 3.0 K/uL (1.8-7.0) 10/16/18 06:16 Lymph # (Auto) 2.3 K/uL (1.0-4.3) 10/16/18 06:16 [place] # (Auto) 0.3 K/uL (0.0-0.8) 10/16/18 06:16 Eos # (Auto) 0.3 K/uL (0.0-0.7) 10/16/18 06:16 Baso # (Auto) 0.0 K/uL (0.0-0.2) 10/16/18 06:16 PT 15.0 SECONDS (9.7-12.2) H 10/15/18 15:59 INR 1.4 10/15/18 15:59 APTT 35 SECONDS (21-34) H 10/15/18 15:59 Sodium 134 mmol/L (132-148) 10/16/18 11:20 Potassium 4.0 mmol/L (3.6-5.2) 10/16/18 11:20 Chloride 92 mmol/L (98-107) L 10/16/18 11:20 Carbon Dioxide 39 mmol/L (22-30) H 10/16/18 11:20 Anion Gap 7 (10-20) L 10/16/18 11:20 BUN 16 mg/dL (7-17) 10/16/18 11:20 Creatinine 0.4 mg/dL (0.7-1.2) L 10/16/18 11:20 Est GFR ( Amer) > 60 10/16/18 11:20 Est GFR (Non-Af Amer) > 60 10/16/18 11:20 POC Glucose (mg/dL) 100 mg/dL (65-110) 10/19/18 20:47 Random Glucose 90 mg/dL (65-105) 10/16/18 11:20 Calcium 8.5 mg/dl (8.6-10.4) L 10/16/18 11:20 Phosphorus 5.1 mg/dL (2.5-4.5) H 10/16/18 11:20 Magnesium 1.7 mg/dL (1.6-2.3) 10/16/18 11:20 Total Bilirubin 0.3 mg/dL (0.2-1.3) 10/16/18 11:20 AST 79 U/L (14-36) H D 10/16/18 11:20 ALT 31 U/L (9-52) 10/16/18 11:20 Alkaline Phosphatase 70 U/L (38-126) 10/16/18 11:20 Total Creatine Kinase 446 U/L (30-135) H 10/15/18 15:45 CK-MB (Mass) 17.2 ng/mL (0.0-3.38) H 10/15/18 15:45 Troponin I 0.0220 ng/mL (0.00-0.120) 10/15/18 15:45 NT-Pro-B Natriuret Pep 134 pg/mL (0-450) 10/15/18 15:45 Total Protein 7.6 g/dL (6.3-8.3) 10/16/18 11:20 Albumin 2.8 g/dL (3.5-5.0) L 10/16/18 11:20 Globulin 4.8 gm/dL (2.2-3.9) H 10/16/18 11:20 Albumin/Globulin Ratio 0.6 (1.0-2.1) L 10/16/18 11:20 Beta HCG, Quant < 2.39 mIU/ML 10/15/18 15:45 - Hospital Course Hospital Course: Chief complaint: Increasing leg swelling, unable to walk. HPI: Patient is a 23-year-old female with history of obesity, obesity hypoventilation, history of paroxysmal atrial flutter, history of DVT and PE, on anticoagulation, history of respiratory insufficiency status post tracheostomy and decannulation. Patient also had a history of heart failure. Patient recently hospitalized at [facility] a month ago, at that time patient was admitted with fluid overload, pneumonia. Patient was intubated and extubated. Patient now in the house. Having hard time to get out of the house, get out of the bed. Difficult time recently, associate with worsening pain in the bilateral hip region. Complaining of some increasing weight gain also noted. But patient has a significant weight loss compared to 6 months to 8 months ago. Patient in the process of getting the bariatric surgery. Now having minimal cough. No chest pain. Exertional dyspnea noted. Denies any abdominal pain. Past medical history: Hypertension. Paroxysmal atrial flutter fibrillation History of obesity hypoventilation. History of respiratory insufficiency status post a tracheostomy. History of anticoagulation Surgical history: Status post a tracheostomy. Family history: Father is healthy. Mother had a history of neck cancer. Siblings 4 sisters and one brother healthy. Non-smoker. Occasional drinks alcohol. Currently no exercise. Recently getting hospitalized deon frequently Patient denies any headache. But complaining of some exertional dyspnea. Abdominal pain negative. Bilateral leg pain and hip pain noted. On examination: Vital signs are noted. Mild tachycardia noted. Room air oxygen saturation is 91, improved to 94-95% with the cannula Chest bilateral good air entry, minimal expiratory in the basal rales noted Heart sounds are regular Abdomen obese. Extremities edema noted up to mid thigh Chest x-ray basilar atelectatic changes noted. ProBNP level is normal. Labs otherwise nonspecific. Assessment and recommendation: 23-year-old male with a history of obesity, obesity hypoventilation, hypertension, proximal atrial flutter fibrillation, history of chronic respiratory insufficiency with acute respiratory failure in the past admitted now with increasing fluid overload. Bilateral leg swelling. Left leg most likely cellulitis of the left thigh region noted. Patient is also had a history of atrial flutter fibrillation and a high risk for DVT PE. Needs to be on anticoagulation. Physical therapy. Bronchodilators. BiPAP as needed. Oxygen treatment. We will continue the current treatment. And will follow the patient. Course in the hospital. I discussed with the patient's mother in detail. Patient is a 23 [id number] with a history of intermittent atrial flutter fibrillation. DVT in the past. Questionable pulmonary embolism. Chronic respiratory insufficiency. Hypoventilation. Obesity hypoventilation. Patient admitted to the hospital with the bilateral leg edema leg swelling. Currently patient is improving. Patient will be discharged home. Physical therapy at home. Hospital bed. She will follow-up with the bariatric surgery. Continue the current diuretics. Bronchodilators. Also anticoagulation. We will follow-up the patient Discharge Plan - Follow Up Plan Condition: GUARDED Disposition: HOME/ ROUTINE Instructions: Pneumonia in Adults, Heart Failure, Adult (DC) Referrals: Mei Grey MD [Staff Provider] -
[2018-10-20] MEDS ORDERED: Influenza Vaccine 60 mcg/0.5 mL SYR (4YR UP) IM ONE (07:00)
[2018-10-20 08:12] LABS: HEMOGLOBIN 8.8 g/dL (11.0-16.0); MEAN CELL VOLUME 73.4 fL (81.0-99.0); MEAN CORPUSCULAR HEMOGLOBIN 22.6 pg (27.0-31.0); MEAN CORPUSCULAR HGB CONC 30.8 g/dL (33.0-37.0); MEAN PLATELET VOLUME 7.2 fL (7.2-11.7); RBC 3.92 Mil/uL (3.80-5.20); RED CELL DISTRIBUTION WIDTH 18.3 % (11.5-14.5); WHITE BLOOD COUNT 7.2 K/uL (4.8-10.8)
[2018-10-20] MEDS: Pantoprazole 40 mg EC Tab PO SCH (09:48)
[2018-10-20] MEDS: Capsaicin 0.025% Cream (60 gm) TOP PRN ×2 (09:48→19:25)
[2018-10-20] MEDS: Ferric Sodium Gluconat Complex 62.5 mg/5 ml Vial IVPB SCH (09:48)
[2018-10-20] MEDS: Lidocaine 5% Patch TD SCH ×2 (09:49)
[2018-10-20] MEDS ORDERED: Albuterol-Ipratrop 3 mg / 0.5 (3 ml) UD INH ONE (10:30)
[2018-10-20] MEDS: Bacitracin Ointment 30 GM TUBE TOP SCH ×2 (10:44→17:05)
[2018-10-21] MEDS: Albuterol-Ipratrop 3 mg / 0.5 (3 ml) UD INH SCH ×4 (01:00→19:20)
[2018-10-21] MEDS: Capsaicin 0.025% Cream (60 gm) TOP PRN ×2 (03:15→10:37)
[2018-10-21 08:31] VITALS: RESP 20
[2018-10-21] MEDS: Pantoprazole 40 mg EC Tab PO SCH (10:36)
[2018-10-21] MEDS: Lidocaine 5% Patch TD SCH ×2 (10:37)
[2018-10-21] MEDS: Bacitracin Ointment 30 GM TUBE TOP SCH ×2 (10:44→22:28)
[2018-10-21] MEDS: Ferric Sodium Gluconat Complex 62.5 mg/5 ml Vial IVPB SCH (10:44)
--- NOTE | 2018-10-21 22:57 | CP.PCM.PN ---
Subjective - Date & Time of Evaluation Date of Evaluation: 10/21/18 Time of Evaluation: 22:56 - Subjective Subjective: Patient is a discharge is on hold now. Patient is concerned going home, because of the weakness in the knee joint she is feeling unsafe when walking to the house. Patient wants to go to the rehab at this time. I also recommended for subacute rehab. We will repeat the CBC in the morning. Echocardiogram. Continue the current treatment. Physical exercise and treatment. We will follow the patient Objective - Vital Signs/Intake and Output Vital Signs (last 24 hours): Temp Pulse Resp BP Pulse Ox 98.1 F 111 H 20 113/74 93 L 10/21/18 15:00 10/21/18 15:00 10/21/18 15:00 10/21/18 15:00 10/21/18 15:00 - Medications Medications: Current Medications Acetaminophen (Tylenol 325mg Tab) 650 mg PO Q6 PRN PRN Reason: Pain, moderate (4-7) Last Admin: 10/20/18 19:25 Dose: 650 mg Albuterol/Ipratropium (Duoneb 3 Mg/0.5 Mg (3 Ml) Ud) 3 ml INH RQ6 [facility] Last Admin: 10/21/18 19:20 Dose: 3 ml Amiodarone HCl (Cordarone) 200 mg PO DAILY [facility] Last Admin: 10/21/18 10:36 Dose: 200 mg Apixaban (Eliquis) 5 mg PO Q12 [facility] Last Admin: 10/21/18 22:35 Dose: 5 mg Bacitracin (Bacitracin) 1 gm TOP BID [facility] Last Admin: 10/21/18 22:28 Dose: Not Given Capsaicin (Trixaicin) 0 gm TOP TID PRN PRN Reason: Pain, Mild (1-3) Last Admin: 10/21/18 10:37 Dose: 60 gm Ferric Sodium Gluconate Complex (Ferrlecit) 125 mg IVPB DAILY [facility] Stop: 10/27/18 12:46 Last Admin: 10/21/18 10:44 Dose: Not Given Furosemide (Lasix) 40 mg PO DAILY [facility] Last Admin: 10/21/18 10:36 Dose: 40 mg Lidocaine (Lidoderm) 1 ea TD DAILY [facility] Last Admin: 10/21/18 10:37 Dose: 1 ea Lidocaine (Lidoderm) 1 ea TD DAILY [facility] Last Admin: 10/21/18 10:37 Dose: Not Given Metformin HCl (Glucophage) 500 mg PO DAILY [facility] Last Admin: 10/21/18 10:36 Dose: Not Given Pantoprazole Sodium (Protonix Ec Tab) 40 mg PO DAILY [facility] Last Admin: 10/21/18 10:36 Dose: 40 mg - Labs Labs: 10/20/18 07:46 10/16/18 11:20 PT 15.0 SECONDS (9.7-12.2) H 10/15/18 15:59 INR 1.4 10/15/18 15:59 APTT 35 SECONDS (21-34) H 10/15/18 15:59
[2018-10-22] MEDS: Albuterol-Ipratrop 3 mg / 0.5 (3 ml) UD INH SCH ×4 (01:20→19:04)
[2018-10-22] MEDS: Capsaicin 0.025% Cream (60 gm) TOP PRN (01:36)
[2018-10-22 07:17] LABS: BASO % 0.2 % (0.0-2.0); EOS # 0.1 K/uL (0.0-0.7); EOS % 1.7 % (0.0-4.0); HEMOGLOBIN 9.1 g/dL (11.0-16.0); LYMPH # 2.6 K/uL (1.0-4.3); LYMPH % 38.8 % (20.0-40.0); MEAN CELL VOLUME 72.5 fL (81.0-99.0); MEAN CORPUSCULAR HEMOGLOBIN 22.2 pg (27.0-31.0); MEAN CORPUSCULAR HGB CONC 30.6 g/dL (33.0-37.0); MEAN PLATELET VOLUME 7.1 fL (7.2-11.7); MONO # 0.5 K/uL (0.0-0.8); MONO % 7.8 % (0.0-10.0); NEUT # 3.5 K/uL (1.8-7.0); NEUT % 51.5 % (50.0-75.0); RBC 4.09 Mil/uL (3.80-5.20); RED CELL DISTRIBUTION WIDTH 18.3 % (11.5-14.5); WHITE BLOOD COUNT 6.7 K/uL (4.8-10.8)
[2018-10-22] MEDS: Pantoprazole 40 mg EC Tab PO SCH (09:42)
[2018-10-22] MEDS: Lidocaine 5% Patch TD SCH ×2 (09:44→09:45)
[2018-10-22] MEDS: Ferric Sodium Gluconat Complex 62.5 mg/5 ml Vial IVPB SCH (09:47)
[2018-10-22] MEDS: Bacitracin Ointment 30 GM TUBE TOP SCH ×2 (13:32→18:26)
[2018-10-22 15:58] VITALS: BP 106/57; PULSE 113; TEMP 98.1; O2SAT 90
--- NOTE | 2018-10-22 17:42 | CP.PCM.DIS ---
Provider - Provider Date of Admission: 10/15/18 16:58 Attending physician: Mei Grey MD Time Spent in preparation of Discharge (in minutes): 45 Hospital Course - Lab Results Lab Results: Most Recent Lab Values WBC 6.7 K/uL (4.8-10.8) 10/22/18 07:04 RBC 4.09 Mil/uL (3.80-5.20) 10/22/18 07:04 Hgb 9.1 g/dL (11.0-16.0) L 10/22/18 07:04 Hct 29.7 % (34.0-47.0) L 10/22/18 07:04 MCV 72.5 fL (81.0-99.0) L 10/22/18 07:04 MCH 22.2 pg (27.0-31.0) L 10/22/18 07:04 MCHC 30.6 g/dL (33.0-37.0) L 10/22/18 07:04 RDW 18.3 % (11.5-14.5) H 10/22/18 07:04 Plt Count 265 K/uL (130-400) 10/22/18 07:04 MPV 7.1 fL (7.2-11.7) L 10/22/18 07:04 Neut % (Auto) 51.5 % (50.0-75.0) 10/22/18 07:04 Lymph % (Auto) 38.8 % (20.0-40.0) 10/22/18 07:04 [place] % (Auto) 7.8 % (0.0-10.0) 10/22/18 07:04 Eos % (Auto) 1.7 % (0.0-4.0) 10/22/18 07:04 Baso % (Auto) 0.2 % (0.0-2.0) 10/22/18 07:04 Neut # (Auto) 3.5 K/uL (1.8-7.0) 10/22/18 07:04 Lymph # (Auto) 2.6 K/uL (1.0-4.3) 10/22/18 07:04 [place] # (Auto) 0.5 K/uL (0.0-0.8) 10/22/18 07:04 Eos # (Auto) 0.1 K/uL (0.0-0.7) 10/22/18 07:04 Baso # (Auto) 0.0 K/uL (0.0-0.2) 10/22/18 07:04 PT 15.0 SECONDS (9.7-12.2) H 10/15/18 15:59 INR 1.4 10/15/18 15:59 APTT 35 SECONDS (21-34) H 10/15/18 15:59 Sodium 134 mmol/L (132-148) 10/16/18 11:20 Potassium 4.0 mmol/L (3.6-5.2) 10/16/18 11:20 Chloride 92 mmol/L (98-107) L 10/16/18 11:20 Carbon Dioxide 39 mmol/L (22-30) H 10/16/18 11:20 Anion Gap 7 (10-20) L 10/16/18 11:20 BUN 16 mg/dL (7-17) 10/16/18 11:20 Creatinine 0.4 mg/dL (0.7-1.2) L 10/16/18 11:20 Est GFR ( Amer) > 60 10/16/18 11:20 Est GFR (Non-Af Amer) > 60 10/16/18 11:20 POC Glucose (mg/dL) 88 mg/dL (65-110) 10/21/18 11:46 Random Glucose 90 mg/dL (65-105) 10/16/18 11:20 Calcium 8.5 mg/dl (8.6-10.4) L 10/16/18 11:20 Phosphorus 5.1 mg/dL (2.5-4.5) H 10/16/18 11:20 Magnesium 1.7 mg/dL (1.6-2.3) 10/16/18 11:20 Total Bilirubin 0.3 mg/dL (0.2-1.3) 10/16/18 11:20 AST 79 U/L (14-36) H D 10/16/18 11:20 ALT 31 U/L (9-52) 10/16/18 11:20 Alkaline Phosphatase 70 U/L (38-126) 10/16/18 11:20 Total Creatine Kinase 446 U/L (30-135) H 10/15/18 15:45 CK-MB (Mass) 17.2 ng/mL (0.0-3.38) H 10/15/18 15:45 Troponin I 0.0220 ng/mL (0.00-0.120) 10/15/18 15:45 NT-Pro-B Natriuret Pep 134 pg/mL (0-450) 10/15/18 15:45 Total Protein 7.6 g/dL (6.3-8.3) 10/16/18 11:20 Albumin 2.8 g/dL (3.5-5.0) L 10/16/18 11:20 Globulin 4.8 gm/dL (2.2-3.9) H 10/16/18 11:20 Albumin/Globulin Ratio 0.6 (1.0-2.1) L 10/16/18 11:20 Beta HCG, Quant < 2.39 mIU/ML 10/15/18 15:45 - Hospital Course Hospital Course: Chief complaint: Increasing leg swelling, unable to walk. HPI: Patient is a 23-year-old female with history of obesity, obesity hypoventilation, history of paroxysmal atrial flutter, history of DVT and PE, on anticoagulation, history of respiratory insufficiency status post tracheostomy and decannulation. Patient also had a history of heart failure. Patient recently hospitalized at [facility] a month ago, at that time patient was admitted with fluid overload, pneumonia. Patient was intubated and extubated. Patient now in the house. Having hard time to get out of the house, get out of the bed. Difficult time recently, associate with worsening pain in the bilateral hip region. Complaining of some increasing weight gain also noted. But patient has a significant weight loss compared to 6 months to 8 months ago. Patient in the process of getting the bariatric surgery. Now having minimal cough. No chest pain. Exertional dyspnea noted. Denies any abdominal pain. Past medical history: Hypertension. Paroxysmal atrial flutter fibrillation History of obesity hypoventilation. History of respiratory insufficiency status post a tracheostomy. History of anticoagulation Surgical history: Status post a tracheostomy. Family history: Father is healthy. Mother had a history of neck cancer. Siblings 4 sisters and one brother healthy. Non-smoker. Occasional drinks alcohol. Currently no exercise. Recently getting hospitalized deon frequently Patient denies any headache. But complaining of some exertional dyspnea. Abdominal pain negative. Bilateral leg pain and hip pain noted. On examination: Vital signs are noted. Mild tachycardia noted. Room air oxygen saturation is 91, improved to 94-95% with the cannula Chest bilateral good air entry, minimal expiratory in the basal rales noted Heart sounds are regular Abdomen obese. Extremities edema noted up to mid thigh Chest x-ray basilar atelectatic changes noted. ProBNP level is normal. Labs otherwise nonspecific. Assessment and recommendation: 23-year-old male with a history of obesity, obesity hypoventilation, hypertension, proximal atrial flutter fibrillation, history of chronic r espiratory insufficiency with acute respiratory failure in the past admitted now with increasing fluid overload. Bilateral leg swelling. Left leg most likely cellulitis of the left thigh region noted. Patient is also had a history of atrial flutter fibrillation and a high risk for DVT PE. Needs to be on anticoagulation. Physical therapy. Bronchodilators. BiPAP as needed. Oxygen treatment. We will continue the current treatment. And will follow the patient. Course in the hospital. I discussed with the patient's mother in detail. Patient is a 23 [id number] with a history of intermittent atrial flutter fibrillation. DVT in the past. Questionable pulmonary embolism. Chronic respiratory insufficiency. Hypoventilation. Obesity hypoventilation. Patient admitted to the hospital with the bilateral leg edema leg swelling. Currently patient is improving. Patient will be discharged home. Physical therapy at home. Hospital bed. She will follow-up with the bariatric surgery. Continue the current diuretics. Bronchodilators. Also anticoagulation. We will follow-up the patient Patient is currently more stable. Repeat hemoglobin is 9.1. Patient is doing well otherwise. Repeat echocardiogram was done today, showing normal ejection fraction. 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 1.3 centimeter in size. I spoke to the tire care manager. Patient does not have any fever, no white count, less likely infected endocarditis. Patient is already on anticoagulation, so no further treatment is needed at this time. Continue the current treatment. She will need physical therapy definitely to improve her mobility. Patient is also scheduled to see bariatric surgical for gastric sleeve surgery. Once the patient is medically stable, she can be referred and the patient can be planned for having surgical intervention. She will continue the current treatment. Medications updated. Discharge Plan - Discharge Medications Prescriptions: Famotidine [Acid Controller] 20 mg PO DAILY #30 tablet Amiodarone 200 mg PO DAILY #30 Lidocaine [Aspercreme] 1 each TP DAILY #30 adh..patch Eliquis 1 tab PO BID #60 Gabapentin 100 mg PO HS PRN #30 capsule PRN Reason: Pain, Moderate (4-7) MetFORMIN ER [Glucophage XR] 500 mg PO DAILY #30 ter Furosemide [Lasix] 40 mg PO DAILY #30 tab Capsaicin [Trixaicin] 1 actuation TOP TID PRN #45 tube PRN Reason: Pain, Mild (1-3) - Follow Up Plan Condition: GUARDED Disposition: HOME/ ROUTINE Instructions: Pneumonia in Adults, Heart Failure, Adult (DC) Referrals: Mei Grey MD [Staff Provider] -
--- NOTE | 2018-10-22 23:52 | CARD ---
APPROVED REPORT Date of service: 10/22/2018 EXAM: Two-dimensional and M-mode echocardiogram with Doppler and color Doppler. INDICATION Congestive Heart Failure 2D DIMENSIONS IVSd1.3 (0.7-1.1cm)LVDd4.9 (3.9-5.9cm) PWd1.3 (0.7-1.1cm)LA Ahisaq950 (18-58mL) LVDs3.0 (2.5-4.0cm)FS (%) 38.7 % LVEF (%)68.9 (>50%)LVEF (Reyes's)64.91 % M-Mode DIMENSIONS Left Atrium (MM)5.02 (2.5-4.0cm)IVSd1.06 (0.7-1.1cm) Aortic Root3.64 (2.2-3.7cm)LVDd5.71 (4.0-5.6cm) Aortic Cusp Exc.2.99 (1.5-2.0cm)PWd0.94 (0.7-1.1cm) FS (%) 42 %LVDs3.34 (2.0-3.8cm) LVEF (%)72 (>50%) Mitral Valve MV E Fblmwsfa460.4cm/sMV A Pyysywzv904.5cm/sE/A ratio1.0 TDI Lateral E' Peak V13.27cm/sMedial E' Peak V12.09cm/sE/Lateral E'10.7 E/Medial E'11.8 Tricuspid Valve TR Peak Cathdckf551wi/sTR Peak Gr.[id number] LEFT VENTRICLE The Left Ventricle is mildly dilated. There is mild concentric left ventricular hypertrophy. Left ventricle systolic function is normal. The Ejection Fraction is 65-70%. There is normal LV segmental wall motion. The left ventricular diastolic function is normal. RIGHT VENTRICLE The right ventricle is normal size. There is normal right ventricular wall thickness. The right ventricular systolic function is normal. ATRIA The left atrium is moderately dilated. The right atrium size is normal. The interatrial septum is intact with no evidence for an atrial septal defect. AORTIC VALVE The aortic valve is normal in structure. No aortic regurgitation is present. There is no aortic valvular stenosis. There is no aortic valvular vegetation. MITRAL VALVE The mitral valve is normal in structure. There is no evidence of mitral valve prolapse. There is no mitral valve stenosis. There is no mitral valve regurgitation noted. TRICUSPID VALVE The tricuspid valve is normal in structure. There is mild tricuspid regurgitation. Right ventricular systolic pressure is estimated at 50-60 mmHg. There is moderate pulmonary hypertension. There is a mobile mass on the tricuspid valve. PULMONIC VALVE The pulmonic valve is not well visualized. There is no pulmonic valvular regurgitation. GREAT VESSELS The aortic root is normal in size. PERICARDIAL EFFUSION There is no significant pericardial effusion. <Conclusion> Left ventricle systolic function is normal. The Ejection Fraction is 65-70%. There is mild concentric left ventricular hypertrophy. No aortic regurgitation is present. There is no mitral valve regurgitation noted. There is mild tricuspid regurgitation. There is moderate pulmonary hypertension. There is a mobile mass on the atrial side of the tricuspid valve. There is no pulmonic valvular regurgitation.
--- NOTE | 2018-10-23 11:57 | PQF ---
PROVIDER RESPONSE TEXT: Provider was unable to determine a response for this query. REVIEWER QUERY TEXT: Pneumonia Specificity Pneumonia is documented in the Medical Record. Please specify the type of pneumonia and the causative organism (includes probable or suspected) Such as: Type: -- Aspiration pneumonia (please also specify the aspirate) - [place] (please specify cause) - Please indicate if the aspiration is postprocedure -- Bacterial (please document suspected or probable organism) -- Bronchopneumonia (please document suspected or probable organism) -- Interstitial pneumonia -- Organizing pneumonia / BOOP -- Pneumonia with influenza, arlette flu, or H1N1 flu -- RSV -- Tuberculosis, pulmonary -- Viral -- Other, please specify The patient's Clinical Indicators include: 10/16 X=RAY ATELECTASIS ==SUPERIMPOSED PNEUMONIA CANNOT BE EXCLUDED. PLEASE CLARIFY AND DOCUMENT IF PNA. WAS R/I OR R/O. Query created by: Jeanie Nelson on 10/23/2018 10:41 AM Electronically signed by: Mei Grey MD 10/23/2018 11:54 AM
== END 2018-10-22 19:27 | DRG 277 ==
LOC: C.ER 14:12 → C.9E 16:58 → C.5S 20:17
PROVIDERS: ADMIT Internal Medicine; ATTEND Internal Medicine
DX: L03.116 Cellulitis of left lower limb (principal); E66.2 Morbid (severe) obesity with alveolar hypoventilation; I11.0 Hypertensive heart disease with heart failure; I50.9 Heart failure, unspecified; I36.1 Nonrheumatic tricuspid (valve) insufficiency; J98.11 Atelectasis; I48.92 Unspecified atrial flutter; G47.30 Sleep apnea, unspecified; Z86.711 Personal history of pulmonary embolism; Z86.718 Personal history of other venous thrombosis and embolism; Z93.0 Tracheostomy status; I48.91 Unspecified atrial fibrillation; D64.9 Anemia, unspecified; Z68.45 Body mass index [BMI] 70 or greater, adult; S73.101A Unspecified sprain of right hip, initial encounter; I27.20 Pulmonary hypertension, unspecified